=== PATIENT | male | born 1945 | race Caucasian/White ===

== ENCOUNTER 2016-05-21 10:15 | Inpatient (IN) ==
[2016-05-21] MEDS ORDERED: methylPREDNISolone 125 MG/2 ML VIAL IV ONE (10:31)
[2016-05-21] MEDS ORDERED: Ipratropium/Albuterol Neb 3 ML IH ONE (10:31)
[2016-05-21] MEDS ORDERED: Ipratropium/Albuterol Neb 3 ML ONE (10:33)
[2016-05-21] MEDS: 0.9 % Sodium Chloride 1,000 ML IVC SCH ×2 (10:44→20:34)
[2016-05-21 10:54] LABS: Basophils % 0.2 %; Eosinophils % 0.1 %; Hematocrit 29.8 % (37.5-50.1); Hemoglobin 9.4 g/dL (12.9-16.9); Immature Granulocytes % 0.3 % (0-4); Lymphocytes # 0.2 K/mcL (0.6-4.6); Lymphocytes % 1.8 %; Mean Corpuscular HGB Conc 31.5 g/dL (31.6-35.5); Mean Corpuscular Hemoglobin 26.3 pg (28.0-33.3); Mean Corpuscular Volume 83.2 fL (83.0-100.0); Mean Platelet Volume 9.2 fL (9.4-12.4); Monocytes # 0.6 K/mcL (0.0-1.3); Monocytes % 4.8 %; Neutrophils # 11.1 K/mcL (1.6-8.9); Platelet Count 165 K/mcL (140-400); Red Blood Count 3.58 M/mcL (4.19-5.50); Red Cell Distribution Width 14.2 % (11.5-14.5); Segmented Neutrophils % 92.8 %
[2016-05-21 10:57] LABS: INR 1.1; Prothrombin Time 11.8 Seconds (9.4-12.1)
[2016-05-21 11:00] LABS: Activated Partial Thrombo Time 28.2 Seconds (26.0-36.0)
[2016-05-21 11:04] LABS: Calcium 8.4 mg/dL (8.6-10.8); Potassium 5.4 mEq/L (3.5-4.5)
[2016-05-21 11:05] LABS: ABG Base Excess 2.5 mEq/L (-2.0 to 3.0); ABG HCO3 28.3 mEQ/L (21-27); ABG Oxygen Saturation 89 % (95-98); ABG PCO2 49 mmHg (35-45); ABG PH 7.37 pH Units (7.32-7.45); ABG PO2 59 mmHg (85-104); ABG TCO2 29.8 mEq/L (20-26); Blood Gas Liter Flow 4 L/MIN
[2016-05-21 11:08] LABS: Platelet Estimate Normal (Normal)
--- NOTE | 2016-05-21 11:23 | Emergency Department Note ---
Disposition Clinical Impression: Community acquired pneumonia Acute and chronic respiratory failure Qualifiers: Respiratory failure complication: hypoxia Qualified Code(s): J96.21 - Acute and chronic respiratory failure with hypoxia Disposition: Admitted As Inpatient Condition: Fair [facility]errals: [facility]Primary Care Provider[facility] - Forms: ED Satisfaction Letter SOB HPI - General Chief Complaint: ED Shortness of Breath/Dyspnea Stated Complaint: KELLY Time Seen by Provider: 05/21/16 10:26 Source: patient, family, EMS Limitations: no limitations Nursing Notes Reviewed: Yes Vital Signs Reviewed: Yes - History of Present Illness Pt Subjective Complaint: shortness of breath, cough Onset (ago): day(s) (2) Severity: moderate Consistency/Duration: intermittent Improves with: oxygen, rest, bronchodilators Worsens with: exertion Known history of: COPD Associated symptoms: Reports: cough, wheezing. Denies: chest pain, fever Treatment prior to arrival: oxygen, bronchodilator Cough present: Yes Cough Description: Involuntary Cough Frequency: Intermittent Sputum production: No - Related Data Home Medications Medication Instructions Recorded Confirmed Metformin [Glucophage] 1,000 mg PO BID 03/24/15 02/06/16 Morphine Sulfate/PF 5mg/10mL 0.5 mg .ROUTE Q1H PRN MDD Pump 03/24/15 01/29/16 [Duramorph] Promethazine [Phenergan] 25 mg PO QID PRN 03/24/15 02/06/16 Sertraline [Zoloft] 200 mg PO QAM 03/24/15 02/06/16 Ascorbic Acid [Vitamin C with Nieves 500 mg PO TID 12/11/15 02/06/16 Hips] Budesonide/Formoterol 160/4.5 2 puff IH BID 12/11/15 02/06/16 [Symbicort 160/4.5] Ipratropium/Albuterol Neb [Duoneb] 3 ml IH QID 12/11/15 02/06/16 Petrolatum,White [Aloe [place]] 1 appl TP TID PRN 01/07/16 02/06/16 Zinc Oxide [Diaper Rash Ointment] 1 appl TP TID 01/07/16 02/06/16 Zolpidem [Ambien] 5 mg PO HS 01/07/16 02/06/16 Carboxymethylcellulose Sodium 1 drop BOTH EYES QID 01/29/16 02/06/16 [Refresh Liquigel] Melatonin 12 mg PO HS 01/29/16 02/06/16 Mineral Oil/Petrolatum,White 1 appl LEFT EYE HS 01/29/16 02/06/16 [Refresh P.m. Ointment] Omeprazole [PriLOSEC] 20 mg PO BIDAC 01/29/16 02/06/16 Acetylcysteine 10% 4 ml IH Q6H PRN 02/06/16 02/06/16 Balsam [place] Oil [Venelex 1 appl TP DAILY 02/06/16 02/06/16 Ointment] Ergocalciferol (VITAMIN D2) 50,000 unit PO QWEEK 02/06/16 02/06/16 [Vitamin D2] Previous Rx's Medication Instructions Recorded OxyCODONE Immed Rel [Roxicodone 5 10 mg PO Q6HR PRN #10 tablet 02/08/16 MG] OxyCODONE/APAP 10/325 [Percocet 1 each PO Q6HR PRN #12 tablet 03/28/16 10/325 MG] Allergies Allergy/AdvReac Type Severity Reaction Status Date / Time gabapentin AdvReac Unknown Verified 04/03/16 05:53 mirtazapine AdvReac Unknown Verified 04/03/16 05:53 propoxyphene [From Darvon] AdvReac Nausea Verified 04/03/16 05:53 tuberculin, purified protein AdvReac Rash Verified 04/03/16 05:53 deriva [From Tubersol] All systems ED: reviewed and negative except as stated. Constitutional: Reports: weakness. Denies: fever Respiratory: Reports: dyspnea, wheezes Past Medical History - Past Medical History Source: patient, old records reviewed, nursing notes reviewed Medical history: Reports: arthritis, COPD, diabetes, GERD, hyperlipidemia, hypertension Surgical history: Reports: other Psychiatric history: Reports: PTSD - Social History Smoking Status: Former smoker Smokeless Tobacco Status: No Alcohol use: Reports: none Drug use: Reports: none Physical Exam - General Limitations: no limitations General appearance: alert - Head Head exam: atraumatic, normocephalic, normal inspection - Eye Eye exam: Present: normal appearance, PERRL, EOMI - ENT ENT exam: normal exam, normal oropharynx, mucous membranes moist - Neck Neck exam: Present: normal inspection, full ROM, trachea midline - Chest Chest inspection: Present: normal inspection, symmetric chest wall rise - Respiratory Respiratory exam: Present: wheezes (Bilateral scattered rhonchi). Absent: accessory muscle use Course Vital Signs Temperature 99.8 F H 05/21/16 10:17 Pulse Rate 117 05/21/16 10:17 Respiratory Rate 18 05/21/16 10:17 Blood Pressure 132/68 05/21/16 10:17 O2 Sat by Pulse Oximetry 92 05/21/16 10:17 Temperature 99.8 F H 05/21/16 10:17 Pulse Rate 107 05/21/16 11:17 Respiratory Rate 20 05/21/16 11:17 Blood Pressure 132/68 05/21/16 11:17 O2 Sat by Pulse Oximetry 93 05/21/16 11:17 Oxygen Delivery Oxygen Delivery Nasal Cannula Shortness of Breath/Dyspnea - Lab Data Result diagrams: 05/21/16 10:46 05/21/16 10:46 Lab Results 05/21/16 05/21/16 05/21/16 Range/Units 10:46 10:46 10:46 WBC 12.0 H (4.3-11.1) K/mcL RBC 3.58 L (4.19-5.50) M/mcL Hgb 9.4 L (12.9-16.9) g/dL Hct 29.8 L (37.5-50.1) % MCV 83.2 (83.0-100.0) fL MCH 26.3 L (28.0-33.3) pg MCHC 31.5 L (31.6-35.5) g/dL RDW 14.2 (11.5-14.5) % Plt Count 165 (140-400) K/mcL MPV 9.2 L (9.4-12.4) fL Immature Gran % 0.3 (0-4) % Seg Neutrophils % 92.8 % Lymphocytes % 1.8 % Monocytes % 4.8 % Eosinophils % 0.1 % Basophils % 0.2 % Neutrophils # 11.1 H (1.6-8.9) K/mcL Lymphocytes # 0.2 L (0.6-4.6) K/mcL Monocytes # 0.6 (0.0-1.3) K/mcL Eosinophils # 0.0 (0.0-0.6) K/mcL Basophils # 0.0 (0.0-0.2) K/mcL Platelet Estimate Normal (Normal) PT 11.8 (9.4-12.1) Seconds INR 1.1 APTT 28.2 (26.0-36.0) Seconds ABG pH (7.32-7.45) pH Units ABG pCO2 (35-45) mmHg ABG pO2 (85-104) mmHg ABG HCO3 (21-27) mEQ/L ABG Total CO2 (20-26) mEq/L ABG O2 Saturation (95-98) % ABG Base Excess (-2.0 to 3.0) mEq/L Liter Flow L/MIN Blood Gas Modality Sodium 138 (136-145) mEq/L Potassium 5.4 H (3.5-4.5) mEq/L Chloride 103 (98-109) mEq/L Carbon Dioxide 28 (19-29) mEq/L BUN 20 (8-26) mg/dL Creatinine 1.67 H (0.72-1.25) mg/dL Est GFR ( Amer) 49 L (> 60) Est GFR (Non-Af Amer) 41 L (> 60) BUN/Creatinine Ratio 12 (6-26) Glucose 200 H (70-99) mg/dL Calculated Osmolality 294 (280-300) Calcium 8.4 L (8.6-10.8) mg/dL Troponin I (0-0.03) ng/mL B-Natriuretic Peptide (0-100) pg/mL 05/21/16 05/21/16 05/21/16 Range/Units 10:46 10:46 10:55 WBC (4.3-11.1) K/mcL RBC (4.19-5.50) M/mcL Hgb (12.9-16.9) g/dL Hct (37.5-50.1) % MCV (83.0-100.0) fL MCH (28.0-33.3) pg MCHC (31.6-35.5) g/dL RDW (11.5-14.5) % Plt Count (140-400) K/mcL MPV (9.4-12.4) fL Immature Gran % (0-4) % Seg Neutrophils % % Lymphocytes % % Monocytes % % Eosinophils % % Basophils % % Neutrophils # (1.6-8.9) K/mcL Lymphocytes # (0.6-4.6) K/mcL Monocytes # (0.0-1.3) K/mcL Eosinophils # (0.0-0.6) K/mcL Basophils # (0.0-0.2) K/mcL Platelet Estimate (Normal) PT (9.4-12.1) Seconds INR APTT (26.0-36.0) Seconds ABG pH 7.37 (7.32-7.45) pH Units ABG pCO2 49 H (35-45) mmHg ABG pO2 59 L (85-104) mmHg ABG HCO3 28.3 H (21-27) mEQ/L ABG Total CO2 29.8 H (20-26) mEq/L ABG O2 Saturation 89 L (95-98) % ABG Base Excess 2.5 (-2.0 to 3.0) mEq/L Liter Flow 4 L/MIN Blood Gas Modality NC Sodium (136-145) mEq/L Potassium (3.5-4.5) mEq/L Chloride (98-109) mEq/L Carbon Dioxide (19-29) mEq/L BUN (8-26) mg/dL Creatinine (0.72-1.25) mg/dL Est GFR ( Amer) (> 60) Est GFR (Non-Af Amer) (> 60) BUN/Creatinine Ratio (6-26) Glucose (70-99) mg/dL Calculated Osmolality (280-300) Calcium (8.6-10.8) mg/dL Troponin I 0.03 (0-0.03) ng/mL B-Natriuretic Peptide 119 H (0-100) pg/mL
[2016-05-21] MEDS ORDERED: Levofloxacin 750 MG/150 ML 750 MG/150 ML BAG IVPB ONE (11:50)
[2016-05-21] MEDS ORDERED: Naloxone 0.4 MG/ML INJ IVP PRN (14:50)
[2016-05-21] MEDS ORDERED: Acetaminophen 325 MG TABLET PO PRN (14:50)
[2016-05-21] MEDS ORDERED: MORPHINE SULFATE MC PRN (15:00)
[2016-05-21] MEDS ORDERED: Acetylcysteine 10% 2 ML INHSOL IH PRN (15:00)
[2016-05-21] MEDS ORDERED: Dextrose Gel 15 GM PO PRN ×2 (15:04)
[2016-05-21] MEDS ORDERED: D5% in Water 1,000 ML IVC PRN (15:04)
[2016-05-21] MEDS ORDERED: *HR* Dextrose 50 % in Water (Syg) 50 ML SYRINGE IVP PRN (15:04)
--- NOTE | 2016-05-21 15:17 | Internal Med History&Physical ---
<Amie Nuñez - Last Filed: 05/21/16 15:54> Date of Encounter: 05/21/16 Time of Encounter: 14:30 Assessment and Plan (1) Community acquired pneumonia Current visit: Yes Status: Acute 1 patient has a history of weakness subjective fever shortness of breath and confusion wheezing hypoxia. Chest x-ray indicates multifocal pneumonia. WBCs 12. Blood cultures have been obtained we will obtain sputum culture 2 continue with oxygen to maintain SPO2 greater than 92% continue with bronchodilators 3 IV Levaquin (2) Acute and chronic respiratory failure Current visit: Yes Status: Acute 1 patient experiencing low SPO2 home presented to ER SPO2 90% ABG PO2 59 and O2 sat 89 PCO2 49 pH 7.3 he has a history of oxygen dependent COPD as well as sarcoidosis. We will continue with oxygen titrated to maintain SPO2 greater than 92%. 2 We will continue with bronchodilators Qualifiers: Respiratory failure complication: hypoxia Qualified Code(s): J96.21 - Acute and chronic respiratory failure with hypoxia (3) Hyperkalemia Current visit: Yes Status: Acute (4) Sepsis Current visit: Yes Status: Acute 1 patient was tachycardic tachypneic with elevated WBC at 12 altered mental status sources pneumonia. Blood cultures were obtained we will obtain sputum cultures 2 continue with IV fluids 3 continue with Levaquin 4 monitor intake and output Qualifiers: Sepsis type: sepsis due to unspecified organism Qualified Code(s): A41.9 - Sepsis, unspecified organism (5) Diabetes mellitus Current visit: No Status: Chronic 1 Accu-Cheks before meals and at bedtime with basal and sliding scale insulin 2 diabetic diet Qualifiers: Diabetes mellitus type: type 2 Diabetes mellitus complication status: with kidney complications Diabetes mellitus complication detail: with chronic kidney disease Diabetes mellitus lobsterman insulin use: unspecified lobsterman insulin use status Chronic kidney disease stage: stage 3 (moderate) Qualified Code(s): E11.22 - Type 2 diabetes mellitus with diabetic chronic kidney disease; N18.3 - Chronic kidney disease, stage 3 (moderate) (6) Hypertension Current visit: No Status: Chronic 1 presently controlled we will continue with beta angelika will hold lisinopril for now due to elevation in creatinine resume once back to baseline Qualifiers: Hypertension type: essential hypertension Qualified Code(s): I10 - Essential (primary) hypertension (7) CKD (chronic kidney disease) Current visit: No Status: Chronic 11 . Patient's creatinine baseline is around 1.3 1.4. Presently 1.67. Suspect patient is dry from current illness. Will continue to monitor creatinine 2 continue with IV fluids 3 monitor intake and output 4 daily weights 5 avoid nephrotoxins Qualifiers: Chronic kidney disease stage: stage 3 (moderate) Qualified Code(s): N18.3 - Chronic kidney disease, stage 3 (moderate) (8) COPD (chronic obstructive pulmonary disease) Current visit: No Status: Chronic 1 does not appear to be an exacerbation or wheezing noted at this time. We will continue with oxygen titrated to maintain SPO2 greater than 92% 2 bronchodilators Qualifiers: COPD type: unspecified COPD Qualified Code(s): J44.9 - Chronic obstructive pulmonary disease, unspecified (9) DVT prophylaxis Current visit: No Status: Acute 1 [facility] Internal Medicine - H&P: HPI Chief complaint: SOB Admitted From: Emergency Dept Plans for Post Hospital Care: Home History of present illness: Mr. Hare is a 70 year old male past medical history of COPD oxygen dependent diabetes type 2 hyperlipidemia hypertension arthritis PTSD CKD stage III sarcoidosis. According to patient's patient who is at bedside for the past 2 days patient has been experiencing some dyspepsia. Last night around 8 8 :30 patient became nauseated and was dry heaving acini progress patient experienced fevers shortness of breath weakness wheezing increased confusion. Denies any chest pain abdominal pain does admit to subjective fevers chills shortness of breath weakness wheezes and confusion The attempted to give patient nebulizer treatments as well as turning up his oxygen with no relief. This a.m. patient continued to be short of breath and confused EMS was called upon arrival patient was tachypneic with low spo2 DuoNeb's were given in route. Upon arrival to the ER patient's ABG PO2 59 O2 sat 89 PCO2 49. He was given 2 nebs as well as steroids chest x-ray did reveal left upper and lower lung zones concerning for pneumonia. Patient was tachycardic on presentation, he was afebrile blood pressure was stable low grade temp. blood cultures were obtained patient was given IV fluids and started on IV Levaquin. Patient has been admitted for further evaluation. Presently patient is alert and oriented 3 he does follow simple commands. He does not appear to be any respiratory distress at this time with his saturations are stable lung sounds with scattered crackles in the bases bilaterally. He is hemodynamically stable this time. I reviewed his case with who agrees with plan. Past Med Surg Social Fam HX - Past Medical History Medical history: arthritis, COPD, diabetes, GERD, hyperlipidemia, hypertension Psychiatric history: PTSD - Past Surgical History Surgical History: other - Social History Smoking Status: Former smoker Smokeless Tobacco Status: No Alcohol use: none Drug use: none - Family History Mother Living Status: Hx Family Cardiac Disorders: Yes Hx Family Neurologic Disorders: Yes (Alzhemier's) Father Living Status: Hx Family Cardiac Disorders: Yes (AR) Hx Family Respiratory Disorders: No Hx Family Cancer: No Hx Family GI Disorders: No Hx Family Endocrine Disorder: No Hx Family Neuromuscular Disorders: No Hx Family Neurologic Disorders: No Hx Family HEENT Disorders: No Hx Family Autoimmune Disorders: No Internal Medicine - H&P: Meds Metformin [Glucophage] 1,000 mg PO BID 03/24/15 [History] Morphine Sulfate/PF 5mg/10mL [Duramorph] 0.5 mg .ROUTE Q1H PRN MDD Pump [History] Promethazine [Phenergan] 25 mg PO QID PRN 03/24/15 [History] Sertraline [Zoloft] 200 mg PO QAM 03/24/15 [History] Ascorbic Acid [Vitamin C with Nieves Hips] 500 mg PO TID 12/11/15 [History] Ipratropium/Albuterol Neb [Duoneb] 3 ml IH QID 12/11/15 [History] Petrolatum,White [Aloe [place]] 1 appl TP TID PRN 01/07/16 [History] Zinc Oxide [Diaper Rash Ointment] 1 appl TP TID 01/07/16 [History] Zolpidem [Ambien] 5 mg PO HS 01/07/16 [History] Melatonin 12 mg PO HS 01/29/16 [History] Omeprazole [PriLOSEC] 20 mg PO BIDAC 01/29/16 [History] Acetylcysteine 10% 4 ml IH Q6H PRN 02/06/16 [History] Cholecalciferol (D-3) [Vitamin D] 2,000 unit PO DAILY 05/21/16 [History] Diazepam [Valium] 10 mg PO BID 05/21/16 [History] Ferrous Gluconate 648 mg PO BID 05/21/16 [History] Insulin Glargine,Hum.rec.anlog [Lantus Solostar] 17 unit SQ HS 05/21/16 [History ] Lisinopril [Zestril] 5 mg PO DAILY 05/21/16 [History] Morphine Sulfate 15 mg PO BID PRN 05/21/16 [History] Oxycodone HCl/Acetaminophen [Percocet 7.5-325 mg Tablet] 1 tab PO QID PRN [History] Allergies gabapentin Adverse Reaction (Verified 04/03/16 05:53) Unknown [facility] list mirtazapine Adverse Reaction (Verified 04/03/16 05:53) Unknown [facility] list propoxyphene [From Darvon] Adverse Reaction (Verified 04/03/16 05:53) Nausea tuberculin, purified protein deriva [From Tubersol] Adverse Reaction (Verified 04/03/16 05:53) Rash All Systems PM: A 10-system review of systems was performed and is negative for pertinent findings except as documented above in the HPI. - Constitutional Constitutional: fatigue, fever(s), weakness - Cardiovascular Cardiovascular ROS IM: orthopnea, no chest pain, no diaphoresis, no dyspnea, no lightheadedness, no palpitations, no syncope - Respiratory Respiratory: cough, dyspnea - Gastrointestinal Gastrointestinal: no abdominal pain, no diarrhea, no hematemesis, no hematochezia, no melena, no nausea, no vomiting - Musculoskeletal Musculoskeletal ROS IM: no numbness, no tingling - Integumentary Integumentary IM: no rash, no unusual bruising - Neurological Neurological ROS: confusion - Constitutional Vitals: Temp Pulse Resp BP Pulse Ox 99.8 F H 96 18 107/72 93 05/21/16 10:17 05/21/16 13:00 05/21/16 14:34 05/21/16 14:34 05/21/16 13:00 General appearance: Present: A&O X 3, answers questions appropriately - Head Head exam: Present: atraumatic, normocephalic - Eye Eye exam: Present: PERRL, conjuntiva pink, sclera anicteric Pupils: Present: PERRL - Respiratory Additional comments: Crackles in bases bilaterally - Cardiovascular Cardiovascular exam: Present: RRR, +S1, +S2. Absent: diastolic murmur, gallop, rubs, systolic murmur - GI/Abdominal GI/Abdominal exam: Present: normal bowel sounds, soft, no peritoneal signs. Absent: distended, tenderness - Extremities Exam Extremities exam: Present: warm, radial pulses palpable and symetrical. Absent : calf tenderness, cyanotic, pedal edema - Neurological Exam Neurological exam: Present: CN II-XII intact, oriented X3, no focal deficits. Absent: pronater drift, facial droop, speech deficit - Skin Skin exam: Present: dry, intact Internal Med - H&P Results - Labs CBC & Chem 7: 05/21/16 10:46 05/21/16 10:46 - EKG Data EKG shows normal: sinus rhythm - Diagnostic Studies Chest x-ray Additional comments: Chest X-Ray 05/21/16 10:32 IMPRESSION: Patchy airspace opacities to the left upper and lower lung zones concerning for multifocal pneumonia superimposed on chronic fibrotic change as well as chronic pleural thickening. D/ / 05/21/2016 12:03:01 Syd Arenas MD / bcarter Interpreting Provider: Syd Arenas MD <Nayan Rosado T - Last Filed: 05/21/16 17:45> Date of Encounter: 05/21/16 Internal Medicine - H&P: HPI History of present illness: Mr. Hare is a 70 year old male All Systems PM: A 10-system review of systems was performed and is negative for pertinent findings except as documented above in the HPI. - Constitutional Vitals: Temp Pulse Resp BP Pulse Ox 99.3 F 69 18 110/63 94 05/21/16 16:10 05/21/16 16:10 05/21/16 16:19 05/21/16 16:10 05/21/16 16:19 Internal Med - H&P Results - Labs CBC & Chem 7: 05/21/16 10:46 05/21/16 10:46 - Attending Attestation I have independently interviewed and examined this patient. I have discussed this patient with DON Nuñez, and her documentation reflects the plan of care with the following addendum 70 Y/O M, seen at bedside with spouse, sleeping but rousable. He has a PMH of COPD, Sarcoidosis on hoe O2, DM, GERD, HTN HLD, PTSD, he presented with complains of shortness of breath and cough, nausea. Physical exam reveals tachycardia on admission, improved, tachypnea, saturating 94-95% on NC, an elderly male, not in distress, speaks full sentences when awake, chest with diffuse rhonchi, worse on the left side, no crackles, heart sounds S1, S2 only. Abdomen is benign, morphine pump in-situ, no pedal edema. Labs and imaging reviewed: Leukocytosis with left shift, chronic anemia, stable , coag panel WNL, ABG with PO2 50, O2sat 89, prob mixed venous considering patients O2Sat , Chem with mild hyperkalemia, azotemia with mild elevation in creatinine. CXR with L multifocal pneumonia A/P: Acute on chronic hypoxic respiratory failure secondary to Sepsis from L lung pneumonia, organism unknown, continue Levoflox for CAP coverage, follow cultures, send sputum cultures, continue O2 supplementation, anemia work up, gentle hydration, resume home meds except Lisinopril, rest of details as in DON Nuñez documentation.
[2016-05-21] MEDS ORDERED: Albuterol 2.5 MG/3 ML NEBULIZER IH PRN (15:56)
[2016-05-21] MEDS: Ipratropium/Albuterol Neb 3 ML IH SCH ×2 (16:14→22:20)
[2016-05-21] MEDS: Ascorbic Acid 500 MG TABLET PO SCH ×2 (17:18→20:34)
[2016-05-21] MEDS: Insulin LISPRO 300 UNITS/3 ML VIAL SQ SCH (17:19)
[2016-05-21] MEDS: diazePAM 5 MG TABLET PO SCH (20:34)
[2016-05-21] MEDS: Insulin DETEMIR 100 UNIT/ML X5UNITS SQ SCH (20:34)
[2016-05-21] MEDS ORDERED: FERROUS GLUCONATE ID SCH (21:00)
[2016-05-21] MEDS ORDERED: Insulin LISPRO 300 UNITS/3 ML VIAL SQ SCH (21:00)
[2016-05-21] MEDS ORDERED: *HR* OxyCODONE Immed Rel 5 MG TABLET PO ONE (21:38)
[2016-05-22 04:43] LABS: Eosinophils % 0.1 %; Immature Granulocytes % 0.4 % (0-4); Lymphocytes # 0.6 K/mcL (0.6-4.6); Lymphocytes % 7.8 %; Mean Corpuscular HGB Conc 30.8 g/dL (31.6-35.5); Mean Corpuscular Hemoglobin 26.2 pg (28.0-33.3); Mean Platelet Volume 10.1 fL (9.4-12.4); Monocytes # 0.4 K/mcL (0.0-1.3); Monocytes % 5.3 %; Neutrophils # 6.3 K/mcL (1.6-8.9); Platelet Count 108 K/mcL (140-400); Red Blood Count 2.94 M/mcL (4.19-5.50); Red Cell Distribution Width 14.6 % (11.5-14.5); Segmented Neutrophils % 86.4 %
[2016-05-22 04:47] LABS: Calcium 8.4 mg/dL (8.6-10.8); Potassium 5.6 mEq/L (3.5-4.5)
[2016-05-22] MEDS: Ipratropium/Albuterol Neb 3 ML IH SCH ×4 (04:47→22:41)
[2016-05-22 04:54] LABS: Hemoglobin 7.7 g/dL (12.9-16.9)
[2016-05-22] MEDS: *HR* Enoxaparin 40 MG/0.4 ML SYRINGE SQ SCH (05:30)
[2016-05-22] MEDS: 0.9 % Sodium Chloride 1,000 ML IVC SCH ×3 (05:31→21:00)
[2016-05-22] MEDS: Cholecalciferol (D-3) 1,000 UNIT TABLET PO SCH (08:52)
[2016-05-22] MEDS: Ascorbic Acid 500 MG TABLET PO SCH ×2 (08:52→16:56)
[2016-05-22] MEDS: Insulin LISPRO 300 UNITS/3 ML VIAL SQ SCH (08:52)
[2016-05-22] MEDS: diazePAM 5 MG TABLET PO SCH (08:53)
[2016-05-22] MEDS ORDERED: Levofloxacin 750 MG/150 ML 750 MG/150 ML BAG IVPB SCH (09:00)
--- NOTE | 2016-05-22 09:13 | Internal Med Progress Note ---
Date of Encounter: 05/22/16 Time of Encounter: 09:10 - Assessment and plan (1) Pneumonia Status: Acute Assessment and plan: Imaging studies show bilateral multifocal infiltrates suggestive of pneumonia. Continue IV hydration and IV Levaquin. Follow-up blood and sputum cultures. Improving clinically and improved leukocytosis. Supportive care and supplemental oxygen as needed, currently requiring at least 4 L/m via nasal cannula. Qualifiers: Pneumonia type: due to unspecified organism Laterality: bilateral Lung location: unspecified part of lung Qualified Code(s): J18.9 - Pneumonia, unspecified organism (2) CKD (chronic kidney disease) Status: Chronic Assessment and plan: Noted to have mild acute kidney injury due to underlying infection. Serum creatinine noted to be improving, continue IV hydration and monitor closely. Medications to be dosed according to current creatinine clearance. Qualifiers: Chronic kidney disease stage: stage 3 (moderate) Qualified Code(s): N18.3 - Chronic kidney disease, stage 3 (moderate) (3) Hyperkalemia Status: Acute Assessment and plan: We will start renal diet and give her dose of oral Kayexalate and continue to monitor serum potassium. Continue telemetry monitoring. (4) COPD (chronic obstructive pulmonary disease) Status: Chronic Assessment and plan: Not noted to be in acute exacerbation. Continue when necessary bronchodilators and supplemental oxygen. Qualifiers: COPD type: unspecified COPD Qualified Code(s): J44.9 - Chronic obstructive pulmonary disease, unspecified (5) Sarcoidosis Status: Chronic (6) Diabetes mellitus type 2, insulin dependent Status: Chronic Assessment and plan: Continue Accu-Chek blood glucose monitoring with sliding scale insulin. Diabetic diet. (7) Acute on chronic respiratory failure Status: Acute Assessment and plan: Secondary to pneumonia. Continue to wean down FiO2 as tolerated. Qualifiers: Respiratory failure complication: hypoxia Qualified Code(s): J96.21 - Acute and chronic respiratory failure with hypoxia (8) Hypertension Status: Chronic Qualifiers: Hypertension type: essential hypertension Qualified Code(s): I10 - Essential (primary) hypertension - Subjective Interval history: Feels much better; at baseline mentation; improved shortness of breath; has intermittent productive cough; no fever, vomiting or diarrhea; - Constitutional Vitals: Temp Pulse Resp BP Pulse Ox 98.4 F 63 16 102/48 98 05/22/16 08:07 05/22/16 08:07 05/22/16 08:07 05/22/16 08:07 05/22/16 08:07 General appearance: Present: A&O X 3, answers questions appropriately - Respiratory Respiratory exam: Present: rales (Bibasilar crackles, left midaxillary crackles+ ). Absent: accessory muscle use, rhonchi, wheezes - Cardiovascular Cardiovascular exam: Present: RRR, +S1, +S2. Absent: diastolic murmur, gallop, rubs, systolic murmur - GI/Abdominal GI/Abdominal exam: Present: normal bowel sounds, soft, no peritoneal signs. Absent: distended, tenderness - Extremities Exam Extremities exam: Present: pedal edema (trace), warm, radial pulses palpable and symetrical. Absent: calf tenderness, cyanotic - Neurological Exam Neurological exam: Present: CN II-XII intact, oriented X3, no focal deficits. Absent: pronater drift, facial droop, speech deficit Internal Medicine: Result - Labs CBC & Chem 7: 05/23/16 03:48 05/23/16 03:48 Labs: Short CBC 05/22/16 Range/Units 03:53 WBC 7.3 (4.3-11.1) K/mcL Hgb 7.7 L D (12.9-16.9) g/dL Hct 25.0 L (37.5-50.1) % Plt Count 108 L (140-400) K/mcL Neutrophils # 6.3 (1.6-8.9) K/mcL BMP 05/22/16 03:53 Sodium 137 Potassium 5.6 H Chloride 104 Carbon Dioxide 27 BUN 26 Creatinine 1.44 H Glucose 148 H Calcium 8.4 L - ABG Interpretation ABG results: ABG ABG pH 7.37 pH Units (7.32-7.45) 05/21/16 10:55 ABG pCO2 49 mmHg (35-45) H 05/21/16 10:55 ABG pO2 59 mmHg (85-104) L 05/21/16 10:55 ABG O2 Saturation 89 % (95-98) L 05/21/16 10:55 PT/INR, D-dimer PT 11.8 Seconds (9.4-12.1) 05/21/16 10:46 Consult Discharge Plan - Plan Instructions: Chronic Obstructive Pulmonary Disease (DC), Pneumonia (DC) [facility]errals: [facility]Primary Care Provider[facility] - 05/28/16 11:15 am Prescriptions: Levofloxacin [Levaquin] 750 mg PO DAILY 5 Days
[2016-05-22] MEDS ORDERED: Acetylcysteine 10% 2 ML INHSOL IH PRN (13:42)
[2016-05-22] MEDS: Levofloxacin 750 MG/150 ML 750 MG/150 ML BAG IVPB SCH (14:14)
--- NOTE | 2016-05-22 15:41 | Electrocardiograph Report ---
[facility] [employer] Test Date: 2016-05-21 Pat Name: Keith Hare Department: 103 Room: 2A35 Gender: M Spool Carrier: CHAPINCITO : 1945 Requested By: Audi Navarrete Order Number: [id number] Reading MD: Raymon Puentes MD Measurements Intervals [place] Rate: 97 P: 14 CA: 138 QRS: -12 QRSD: 94 T: -7 QT: 331 QTc: 385 Interpretive Statements SINUS RHYTHM MODERATE VOLTAGE CRITERIA FOR LVH, CONSIDER NORMAL VARIANT NONSPECIFIC T-WAVE ABNORMALITY Electronically Signed On 05-22-2016 15:40:30 EDT by Raymon Puentes MD
[2016-05-22] MEDS ORDERED: Saline Nasal Spray 44 ML BOTTLE NS PRN (20:06)
[2016-05-22] MEDS ORDERED: Melatonin 3 MG TABLET PO SCH (21:00)
[2016-05-23] MEDS: Ascorbic Acid 500 MG TABLET PO SCH ×4 (01:45→15:57)
[2016-05-23] MEDS: Insulin DETEMIR 100 UNIT/ML X5UNITS SQ SCH (01:46)
[2016-05-23] MEDS: diazePAM 5 MG TABLET PO SCH ×2 (01:46→07:37)
[2016-05-23 04:38] LABS: Basophils % 0.2 %; Eosinophils # 0.1 K/mcL (0.0-0.6); Eosinophils % 1.1 %; Hematocrit 24.3 % (37.5-50.1); Hemoglobin 7.5 g/dL (12.9-16.9); Immature Granulocytes % 0.7 % (0-4); Lymphocytes # 0.7 K/mcL (0.6-4.6); Lymphocytes % 12.9 %; Mean Corpuscular HGB Conc 30.9 g/dL (31.6-35.5); Mean Corpuscular Hemoglobin 26.2 pg (28.0-33.3); Mean Platelet Volume 10.7 fL (9.4-12.4); Monocytes # 0.3 K/mcL (0.0-1.3); Monocytes % 6.3 %; Neutrophils # 4.2 K/mcL (1.6-8.9); Platelet Count 113 K/mcL (140-400); Red Blood Count 2.86 M/mcL (4.19-5.50); Red Cell Distribution Width 14.9 % (11.5-14.5); Segmented Neutrophils % 78.8 %
[2016-05-23 04:52] LABS: BUN/Creatinine Ratio 19 (6-26); Blood Urea Nitrogen 24 mg/dL (8-26); Calcium 8.7 mg/dL (8.6-10.8); Carbon Dioxide 25 mEq/L (19-29); Chloride 104 mEq/L (98-109); Glucose 132 mg/dL (70-99); Osmolality,Calculated 292 (280-300); Potassium 4.8 mEq/L (3.5-4.5); Sodium 138 mEq/L (136-145); eGFR For African Americans > 60 (> 60); eGFR For Non-African Americans 56 (> 60)
[2016-05-23] MEDS: Ipratropium/Albuterol Neb 3 ML IH SCH ×3 (05:08→16:16)
[2016-05-23] MEDS: Cholecalciferol (D-3) 1,000 UNIT TABLET PO SCH (07:37)
[2016-05-23] MEDS: *HR* Enoxaparin 40 MG/0.4 ML SYRINGE SQ SCH (07:37)
[2016-05-23] MEDS ORDERED: Saline Nasal Spray 44 ML BOTTLE NS PRN (09:56)
[2016-05-23] MEDS ORDERED: Acetylcysteine 10% 2 ML INHSOL IH PRN (09:56)
[2016-05-23] MEDS: Levofloxacin 750 MG/150 ML 750 MG/150 ML BAG IVPB SCH (12:25)
[2016-05-23] MEDS ORDERED: Levofloxacin 750 MG/150 ML 750 MG/150 ML BAG IVPB SCH (13:00)
--- NOTE | 2016-05-23 15:37 | Discharge Summary ---
Date of Encounter: 05/23/16 Time of Encounter: 12:30 - Discharge Diagnosis (1) Pneumonia Priority: Primary Status: Acute Qualifiers: Pneumonia type: due to unspecified organism Laterality: bilateral Lung location: unspecified part of lung Qualified Code(s): J18.9 - Pneumonia, unspecified organism (2) CKD (chronic kidney disease) Priority: Secondary Status: Chronic Qualifiers: Chronic kidney disease stage: stage 3 (moderate) Qualified Code(s): N18.3 - Chronic kidney disease, stage 3 (moderate) (3) Hyperkalemia Priority: Primary Status: Acute (4) COPD (chronic obstructive pulmonary disease) Priority: Secondary Status: Chronic Qualifiers: COPD type: unspecified COPD Qualified Code(s): J44.9 - Chronic obstructive pulmonary disease, unspecified (5) Sarcoidosis Priority: Secondary Status: Chronic (6) Diabetes mellitus type 2, insulin dependent Priority: Secondary Status: Chronic (7) Acute on chronic respiratory failure Priority: Primary Status: Acute Qualifiers: Respiratory failure complication: hypoxia Qualified Code(s): J96.21 - Acute and chronic respiratory failure with hypoxia (8) Hypertension Priority: Secondary Status: Chronic Qualifiers: Hypertension type: essential hypertension Qualified Code(s): I10 - Essential (primary) hypertension - Discharge Medications Prescriptions: Levofloxacin [Levaquin] 750 mg PO DAILY 5 Days Home Medications: Metformin [Glucophage] 1,000 mg PO BID 03/24/15 [History] Morphine Sulfate/PF 5mg/10mL [Duramorph] 0.5 mg .ROUTE Q1H PRN MDD Pump [History] Promethazine [Phenergan] 25 mg PO QID PRN 03/24/15 [History] Sertraline [Zoloft] 200 mg PO QAM 03/24/15 [History] Ascorbic Acid [Vitamin C with Nieves Hips] 500 mg PO TID 12/11/15 [History] Ipratropium/Albuterol Neb [Duoneb] 3 ml IH QID 12/11/15 [History] Petrolatum,White [Aloe [place]] 1 appl TP TID PRN 01/07/16 [History] Zinc Oxide [Diaper Rash Ointment] 1 appl TP TID 01/07/16 [History] Zolpidem [Ambien] 5 mg PO HS 01/07/16 [History] Melatonin 12 mg PO HS 01/29/16 [History] Omeprazole [PriLOSEC] 20 mg PO BIDAC 01/29/16 [History] Acetylcysteine 10% 4 ml IH Q6H PRN 02/06/16 [History] Cholecalciferol (D-3) [Vitamin D] 2,000 unit PO DAILY 05/21/16 [History] Diazepam [Valium] 10 mg PO BID 05/21/16 [History] Ferrous Gluconate 648 mg PO BID 05/21/16 [History] Insulin Glargine,Hum.rec.anlog [Lantus Solostar] 17 unit SQ HS 05/21/16 [History ] Lisinopril [Zestril] 5 mg PO DAILY 05/21/16 [History] Oxycodone HCl/Acetaminophen [Percocet 7.5-325 mg Tablet] 1 tab PO QID PRN [History] Levofloxacin [Levaquin] 750 mg PO DAILY 5 Days 05/23/16 [Rx] Allergies/Adverse Reactions: Allergies gabapentin Adverse Reaction (Verified 04/03/16 05:53) [facility] mirtazapine Adverse Reaction (Verified 04/03/16 05:53) Unknown [facility] list propoxyphene [From Darvon] Adverse Reaction (Verified 04/03/16 05:53) Nausea tuberculin, purified protein deriva [From Tubersol] Adverse Reaction (Verified 04/03/16 05:53) Rash Date of admission: 05/21/16 14:50 [facility] care physician: [facility] Discharging clinician: Rubi Santos Anticipated date of discharge: 05/23/16 - Patient Status Disposition: Home, Self-Care Condition: Fair Functional capacity at discharge: uses cane/walker Overall status at discharge: patient is progressing back to baseline - Discharge Instructions Instructions: Chronic Obstructive Pulmonary Disease (DC), Pneumonia (DC) Follow Up With: [facility] [Primary Care Provider] - 05/28/16 11:15 am - Diet and Activity Activity: resume usual activities as tolerated, wear oxygen at all times Diet: diabetic diet, low fat, low cholesterol, low salt diet Hospital course: Mr. Hare is a 70 year old male admitted with cough and dyspnea, noted to be in acute on chronic respiratory failure. Chest XRay showed e/o- multifocal Pneumonia and she was started on IV antibiotics and IV hydration. Blood cultures remained negative and patient made significant improvement clinically, and O2 requirements were down to baseline. Sputum GS showed GPC, final report pending at the time of discharge. Patient also had chronic anemia, around 7-8 and he has been advised to f/up with gI recently, for possible EGD/Colonoscopy and he is otherwise stable for discharge. He is noted to be on oral iron supplements and Vit C, and Hb is in the usual range for him. - Time Spent with Patient Total time spent providing and/or coordinating discharge services: Greater than 30 minutes (45 min) - Constitutional Vitals: Temp Pulse Resp BP Pulse Ox 98.7 F 68 18 138/73 99 05/23/16 11:31 05/23/16 11:31 05/23/16 11:31 05/23/16 11:31 05/23/16 11:31 General appearance: Present: A&O X 3, answers questions appropriately - Respiratory Respiratory exam: Present: CTAB (coarse breath sounds B/L). Absent: accessory muscle use, rales, rhonchi, wheezes - Cardiovascular Cardiovascular exam: Present: RRR, +S1, +S2. Absent: diastolic murmur, gallop, rubs, systolic murmur
[2016-05-23 15:39] VITALS: BP 128/58
== END 2016-05-23 16:40 | disposition home or self-care (01) | DRG 871 ==
LOC: EMEROO 10:15 → 2ANU 13:10 → INTOOBSV 13:10 → SUATTDRO 14:50 → 2ANU 15:22
PROVIDERS: ADMIT Internal Medicine; ATTEND Internal Medicine

== ENCOUNTER 2017-06-09 22:43 | Observation (INO) ==
[2017-06-09] MEDS ORDERED: Aspirin 81 MG TAB.CHEW PO ONE (22:53)
[2017-06-09] MEDS ORDERED: 0.9 % Sodium Chloride 500 ML IVC ONE (22:53)
--- NOTE | 2017-06-09 22:57 | Emergency Department Note ---
Disposition Clinical Impression: Hyperglycemia Chest pain Qualifiers: Chest pain type: unspecified Qualified Code(s): R07.9 - Chest pain, unspecified Anemia Qualifiers: Anemia type: unspecified type Qualified Code(s): D64.9 - Anemia, unspecified Disposition: Admitted As Inpatient Condition: Fair Time of Disposition: 00:27 Chest Pain HPI - General Chief Complaint: ED Chest Pain Stated Complaint: chest pain Time Seen by Provider: 06/09/17 22:52 Source: patient, EMS Mode of arrival: EMS Limitations: no limitations Vital Signs Reviewed: Yes Nursing Notes Reviewed: Yes - History of Present Illness HPI Narrative: 71-year-old male with history of CHF, COPD, PTSD presents for evaluation of chest pain. Presents via EMS. EMS report the patient's chest pain started proximal 1 hour prior to arrival. Patient states that it was nonexertional. Patient was using a breathing treatment. Patient noted left-sided chest pain which radiated across his chest into his neck and arms. Patient states that the pain is slightly improved since initial presentation. Patient denies a nausea vomiting or diaphoresis. Patient denies any dyspnea. Patient's on home oxygen therapy. Patient does have a nonproductive cough. No fevers. Patient denies history of heart attacks or stents. EMS report that the patient does have fairly significant PTSD. EMS also reported this is the patient's baseline mental status. - Related Data Home Medications Medication Instructions Recorded Confirmed Acetylcysteine 10% 4 ml MC Q6HR PRN 06/10/17 06/10/17 Ascorbic Acid [Vitamin C with Nieves 500 mg PO TID 06/10/17 06/10/17 Hips] Atorvastatin Calcium [Lipitor] 80 mg PO HS 06/10/17 06/10/17 Balsam [place] Oil [Venelex 5 gm TP DAILY 06/10/17 06/10/17 Ointment Packet] Budesonide/Formoterol 160/4.5 2 puff IH BIDR 06/10/17 06/10/17 [Symbicort 160/4.5] Cholecalciferol (D-3) [Vitamin D] 3,000 unit PO DAILY 06/10/17 06/10/17 Dextrose [Trueplus Glucose] 15 gm PO DAILY MDD hypoglycemia 06/10/17 06/10/17 Ibuprofen [Motrin] 200 mg PO Q4HR PRN 06/10/17 06/10/17 Insulin ASPART [Novolog Flexpen] 10 unit SQ TID 06/10/17 06/10/17 Insulin Glargine,Hum.rec.anlog 17 unit SQ DAILY 06/10/17 06/10/17 [Basaglar Kwikpen U-100] Ipratropium/Albuterol Neb [Duoneb] 3 ml IH Q6HR MDD Shortness of 06/10/17 breath Levothyroxine Sodium [Levo-T] 50 mcg PO DAILY 06/10/17 06/10/17 Lisinopril [Zestril] 2.5 mg PO DAILY 06/10/17 06/10/17 Melatonin [Melatonin] 12 mg PO HS 06/10/17 06/10/17 Metformin HCl [Glucophage] 1,000 mg PO BID 06/10/17 06/10/17 Miconazole 2% ointment [Aloe [place] 1 appl TP TID 06/10/17 06/10/17 Antifungal Ointment] Morphine Sulfate [Arymo ER] 15 mg PO BID 06/10/17 06/10/17 Omeprazole [PriLOSEC] 20 mg PO DAILY 06/10/17 06/10/17 Prazosin HCl [Minipress] 1 mg PO HS 06/10/17 06/10/17 Sertraline [Zoloft] 200 mg PO DAILY 06/10/17 06/10/17 Silver Sulfadiazine Cream 1 appl TP TID 06/10/17 06/10/17 [Silvadene] Tiotropium [Spiriva] 18 mcg IH 0700 06/10/17 06/10/17 Zinc Oxide [Secura Protective] 50 gm TP TID 06/10/17 06/10/17 diazePAM [Valium] 10 mg PO QID PRN 06/10/17 06/10/17 Allergies Allergy/AdvReac Type Severity Reaction Status Date / Time gabapentin AdvReac Unknown Verified 03/30/17 13:05 mirtazapine AdvReac Unknown Verified 03/30/17 13:05 propoxyphene [From Darvon] AdvReac Nausea Verified 03/30/17 13:05 tuberculin, purified protein AdvReac Rash Verified 03/30/17 13:05 deriva [From Tubersol] All systems ED: reviewed and negative except as stated. Constitutional: Denies: fever Cardiovascular: Reports: chest pain Respiratory: Reports: cough. Denies: dyspnea, sputum production Gastrointestinal: Denies: abdominal pain, nausea, vomiting Chest Pain PMH - Past Medical History Medical history: Reports: arthritis, COPD, diabetes, GERD, hyperlipidemia, hypertension Surgical history: Reports: other Psychiatric history: Reports: PTSD - Social History Smoking Status: Former smoker Alcohol use: Reports: none Drug use: Reports: none Physical Exam - General Limitations: no limitations General appearance: alert, in no apparent distress - Head Head exam: atraumatic, normocephalic, normal inspection - Eye Eye exam: Present: normal appearance, PERRL, EOMI - ENT ENT exam: normal exam - Neck Neck exam: Present: normal inspection - Chest Chest inspection: Present: normal inspection, symmetric chest wall rise. Absent : tenderness - Respiratory Respiratory exam: Present: prolonged expiratory phase. Absent: respiratory distress - Cardiovascular Cardiovascular exam: Present: regular rate, normal rhythm. Absent: systolic murmur - Abdominal Exam Abdominal exam: Present: soft, Non-Tender - Extremities Exam Extremities exam: Present: normal inspection. Absent: pedal edema - Back Exam Back exam: Present: normal inspection - Neurological Exam Neurological exam: Present: alert - Skin Skin exam: Present: warm, dry, intact, normal color Course Course Narrative: Patient seen and examined. Patient will get evaluation with basic labs including a troponin, chest x-ray, aspirin and nitroglycerin. Disposition likely be admission. Patient had an echo 2 years ago showed an EF of 65-70%. No recent provocative stress testing noted. - Reevaluation(s) Reevaluation #1: Patient is denying any chest pain. Patient states that he does have chronic back pain which appears to be his main concern at this point. Patient does have some EKG changes that of change from prior. Patient will be admitted to the hospitalist for further evaluation and monitoring with serial troponins and likely stress test. Family at bedside agree with current plan of care. Time: 23:54 Vital Signs Temperature 99.0 F 06/09/17 22:47 Pulse Rate 72 06/09/17 22:47 Respiratory Rate 19 06/09/17 22:47 Blood Pressure 160/71 06/09/17 22:47 O2 Sat by Pulse Oximetry 100 06/09/17 22:47 Temperature 98.5 F 06/10/17 01:08 Pulse Rate 60 06/10/17 01:08 Respiratory Rate 17 06/10/17 01:08 Blood Pressure 153/64 06/10/17 01:08 O2 Sat by Pulse Oximetry 96 06/10/17 01:08 Oxygen Delivery Oxygen Delivery Nasal Cannula Chest Pain - MDM Narrative Medical decision making narrative: Patient presents with complaint of chest pain. She has a history of CHF as well as COPD. Patient chest pain has significantly resolved during the ED course. Patient also has subsequent chronic back pain. Patient takes opiates for his back. Patient does have T-wave inversions across the anterior leads which are new from prior EKGs. Patient's acute onset of pain does not allow sufficient time for a negative single troponin. Patient is also a somewhat poor historian I would likely benefit from observation with serial troponins and further cardiac provocative testing. Patient chest x-ray does not show any widened mediastinum. Patient's low likelihood having a dissection with his back pain. Patient does have chronic back pain. Patient will be admitted to the hospitalist service with family at bedside agree with current plan of care. Patient's symptoms are not consistent with a pulmonary embolism. Patient's been resting comfortably in the emergency department. - Lab Data Lab results reviewed: Yes I reviewed the patient's lab results. Result diagrams: 06/09/17 23:09 06/09/17 23:09 Lab Results 06/09/17 06/09/17 06/09/17 Range/Units 23:09 23:09 23:09 WBC 5.8 (4.3-11.1) K/mcL RBC 3.71 L (4.19-5.50) M/mcL Hgb 10.0 L (12.9-16.9) g/dL Hct 31.6 L (37.5-50.1) % MCV 85.2 (83.0-100.0) fL MCH 27.0 L (28.0-33.3) pg MCHC 31.6 (31.6-35.5) g/dL RDW 13.8 (11.5-14.5) % Plt Count 146 (140-400) K/mcL MPV 9.9 (9.4-12.4) fL Immature Gran % 0.5 (0-4) % Seg Neutrophils % 75.8 % Lymphocytes % 15.6 % Monocytes % 4.9 % Eosinophils % 3.0 % Basophils % 0.2 % Neutrophils # 4.4 (1.6-8.9) K/mcL Lymphocytes # 0.9 (0.6-4.6) K/mcL Monocytes # 0.3 (0.0-1.3) K/mcL Eosinophils # 0.2 (0.0-0.6) K/mcL Basophils # 0.0 (0.0-0.2) K/mcL PT 12.2 H (9.4-12.1) Seconds INR 1.1 Sodium (136-145) mEq/L Potassium (3.5-5.1) mEq/L Chloride (98-107) mEq/L Carbon Dioxide (23-29) mEq/L BUN (8-23) mg/dL Creatinine (0.70-1.30) mg/dL Est GFR ( Amer) (> 60) Est GFR (Non-Af Amer) (> 60) BUN/Creatinine Ratio (6-26) Glucose (70-105) mg/dL Calculated Osmolality (280-300) Calcium (8.6-10.3) mg/dL Troponin I (< 0.04) ng/mL B-Natriuretic Peptide 89 (Less than 100) pg/mL 06/09/17 Range/Units 23:09 WBC (4.3-11.1) K/mcL RBC (4.19-5.50) M/mcL Hgb (12.9-16.9) g/dL Hct (37.5-50.1) % MCV (83.0-100.0) fL MCH (28.0-33.3) pg MCHC (31.6-35.5) g/dL RDW (11.5-14.5) % Plt Count (140-400) K/mcL MPV (9.4-12.4) fL Immature Gran % (0-4) % Seg Neutrophils % % Lymphocytes % % Monocytes % % Eosinophils % % Basophils % % Neutrophils # (1.6-8.9) K/mcL Lymphocytes # (0.6-4.6) K/mcL Monocytes # (0.0-1.3) K/mcL Eosinophils # (0.0-0.6) K/mcL Basophils # (0.0-0.2) K/mcL PT (9.4-12.1) Seconds INR Sodium 136 (136-145) mEq/L Potassium 4.3 (3.5-5.1) mEq/L Chloride 99 (98-107) mEq/L Carbon Dioxide 32 H (23-29) mEq/L BUN 13 (8-23) mg/dL Creatinine 1.09 (0.70-1.30) mg/dL Est GFR ( Amer) > 60 (> 60) Est GFR (Non-Af Amer) > 60 (> 60) BUN/Creatinine Ratio 12 (6-26) Glucose 218 H (70-105) mg/dL Calculated Osmolality 289 (280-300) Calcium 9.0 (8.6-10.3) mg/dL Troponin I < 0.03 (< 0.04) ng/mL B-Natriuretic Peptide (Less than 100) pg/mL - Radiology Data Radiology results reviewed: Yes I reviewed the patient's radiology results. Chest X-Ray 06/09/17 22:53 IMPRESSION: Moderate interstitial edema or interstitial lung disease and pleural reaction as above D/ / Kash Billy MD / Kash Billy MD Interpreting Provider: Kash Billy MD - EKG Data EKG attestation: Yes I reviewed and interpreted this EKG. EKG shows normal: sinus rhythm Rate: normal Rhythm: NSR Logan/QRS: normal T wave inversions noted in: v1, v2, v3, v4 When compared to previous EKG there are: changes noted (05/2016) Interpretation: nonspecific ST-T wave changes Heart Score - Score History: Moderately Suspicious EKG: Non Specific repolarisation Disturbance Age: Greater than 65 Risk Factors: 1-2 risk factors Troponin: Less than normal limit HEART Score Total: 5 S.B.A.R. - S.B.A.RStella Situation: Demographics Background: Presenting Complaint Assessment: Vital Signs, Course and respsone to treatment, Patient/Family Expectation Recommendation: Barrier(s) to disposition, Recommendation based on pending studies, treatments, or consults S.B.A.RStella Report Given to: Dr. Vladimir MarieALogan Repor Time: 00:21 Attestation Statement - Attestation Attestation: I examined this patient and my medical decision-making was reviewed with the Resident Physician. I agree with the documented findings, disposition and treatment plan as described except to the extent set forth below. Findings consistent with chest pain. Patient did receive nitroglycerin and aspirin. EKG is nondiagnostic for STEMI There is moderate interstitial edema noted on x- ray. Patient will be admitted for further evaluation of chest pain in the setting of interstitial edema pleural thickening.
[2017-06-09 23:18] LABS: Basophils % 0.2 %; Eosinophils # 0.2 K/mcL (0.0-0.6); Hematocrit 31.6 % (37.5-50.1); Immature Granulocytes % 0.5 % (0-4); Lymphocytes # 0.9 K/mcL (0.6-4.6); Lymphocytes % 15.6 %; Mean Corpuscular HGB Conc 31.6 g/dL (31.6-35.5); Mean Corpuscular Volume 85.2 fL (83.0-100.0); Mean Platelet Volume 9.9 fL (9.4-12.4); Monocytes # 0.3 K/mcL (0.0-1.3); Monocytes % 4.9 %; Neutrophils # 4.4 K/mcL (1.6-8.9); Platelet Count 146 K/mcL (140-400); Red Blood Count 3.71 M/mcL (4.19-5.50); Red Cell Distribution Width 13.8 % (11.5-14.5); Segmented Neutrophils % 75.8 %
[2017-06-09 23:24] LABS: INR 1.1; Prothrombin Time 12.2 Seconds (9.4-12.1)
[2017-06-09 23:44] LABS: Troponin I < 0.03 ng/mL (< 0.04)
[2017-06-09] MEDS: Nitroglycerin 0.4 MG TAB.SUBL SL ONE ×2 (23:44→23:49)
[2017-06-09 23:45] LABS: BUN/Creatinine Ratio 12 (6-26); Blood Urea Nitrogen 13 mg/dL (8-23); Carbon Dioxide 32 mEq/L (23-29); Chloride 99 mEq/L (98-107); Glucose 218 mg/dL (70-105); Osmolality,Calculated 289 (280-300); Potassium 4.3 mEq/L (3.5-5.1); Sodium 136 mEq/L (136-145); eGFR For African Americans > 60 (> 60); eGFR For Non-African Americans > 60 (> 60)
[2017-06-09] MEDS ORDERED: *HR* OxyCODONE/APAP 5/325 TABLET PO ONE (23:53)
[2017-06-10] MEDS ORDERED: *HR* FentaNYL (PF) 100 MCG/2 ML VIAL IVP ONE (00:32)
[2017-06-10] MEDS ORDERED: Acetaminophen 325 MG TABLET PO PRN (02:35)
[2017-06-10] MEDS ORDERED: Naloxone 0.4 MG/ML INJ IVP PRN (02:35)
[2017-06-10] MEDS ORDERED: Dextrose Gel 15 GM/37.5 ML TUBE PO PRN ×2 (02:39)
[2017-06-10] MEDS ORDERED: *HR* Dextrose 50 % in Water (Syg) 50 ML SYRINGE IVP PRN (02:39)
[2017-06-10] MEDS ORDERED: D5% in Water 1,000 ML IVC PRN (02:39)
[2017-06-10] MEDS ORDERED: Nitroglycerin 0.4 MG TAB.SUBL SL PRN (02:39)
[2017-06-10] MEDS ORDERED: Ibuprofen 200 MG TABLET PO PRN (02:40)
[2017-06-10] MEDS ORDERED: diazePAM 10 MG TABLET PO PRN (02:40)
[2017-06-10] MEDS ORDERED: Acetylcysteine 10% 2 ML INHSOL IH PRN (02:40)
[2017-06-10] MEDS ORDERED: *HR* OxyCODONE Immed Rel 5 MG TABLET PO PRN (03:42)
[2017-06-10] MEDS: Ipratropium/Albuterol Neb 3 ML IH SCH ×2 (03:54→11:06)
[2017-06-10 04:11] LABS: Basophils % 0.2 %; Eosinophils # 0.2 K/mcL (0.0-0.6); Eosinophils % 3.4 %; Hematocrit 28.2 % (37.5-50.1); Hemoglobin 8.8 g/dL (12.9-16.9); Immature Granulocytes % 0.2 % (0-4); Lymphocytes # 1.1 K/mcL (0.6-4.6); Lymphocytes % 20.9 %; Mean Corpuscular HGB Conc 31.2 g/dL (31.6-35.5); Mean Corpuscular Hemoglobin 26.1 pg (28.0-33.3); Mean Corpuscular Volume 83.7 fL (83.0-100.0); Mean Platelet Volume 9.5 fL (9.4-12.4); Monocytes # 0.3 K/mcL (0.0-1.3); Monocytes % 5.1 %; Neutrophils # 3.6 K/mcL (1.6-8.9); Platelet Count 115 K/mcL (140-400); Red Blood Count 3.37 M/mcL (4.19-5.50); Red Cell Distribution Width 13.9 % (11.5-14.5); Segmented Neutrophils % 70.2 %
[2017-06-10 04:33] LABS: BUN/Creatinine Ratio 12 (6-26); Blood Urea Nitrogen 13 mg/dL (8-23); Calcium 8.4 mg/dL (8.6-10.3); Carbon Dioxide 33 mEq/L (23-29); Chloride 102 mEq/L (98-107); Glucose 207 mg/dL (70-105); Magnesium 1.4 mg/dL (1.6-2.6); Osmolality,Calculated 290 (280-300); Potassium 4.4 mEq/L (3.5-5.1); Sodium 137 mEq/L (136-145); Troponin I < 0.03 ng/mL (< 0.04); eGFR For African Americans > 60 (> 60); eGFR For Non-African Americans > 60 (> 60)
--- NOTE | 2017-06-10 05:15 | Internal Med History&Physical ---
Date of Encounter: 06/10/17 Time of Encounter: 01:00 Internal Medicine - H&P: HPI Chief complaint: Chest pain Admitted From: Home Plans for Post Hospital Care: Home History of present illness: Mr. Hare is a 71 year old male presented to ER for chest pain since 9 PM. Past medical history is significant for chronic back pain on morphine pump, diabetes, hypertension, COPD, sarcoidosis. Patient said the chest pain started around 9 PM when patient is taking breathing treatments. The pain located on left side chest, radiated to bilateral arm and neck, sharp, 10 out of 10. Patient denies shortness of breath , nausea, or diaphoresis. The chest pain lasted about 10 minutes and improved after EMS give patient nitroglycerin. When I saw patient in the emergency room , patient is chest pain-free but still complaint back pain, which is chronic. Patient was admitted to rule out ACS. Past Med Surg Social Fam HX - Past Medical History Medical history: arthritis, COPD, diabetes, GERD, hyperlipidemia, hypertension Psychiatric history: PTSD - Past Surgical History Surgical History: other - Social History Smoking Status: Former smoker Smokeless Tobacco Status: No Alcohol use: none Drug use: none - Family History Mother Living Status: Hx Family Cardiac Disorders: Yes Hx Family Neurologic Disorders: Yes (Alzhemier's) Father Living Status: Hx Family Cardiac Disorders: Yes ([place]) Hx Family Respiratory Disorders: No Hx Family Cancer: No Hx Family GI Disorders: No Hx Family Endocrine Disorder: No Hx Family Neuromuscular Disorders: No Hx Family Neurologic Disorders: No Hx Family HEENT Disorders: No Hx Family Autoimmune Disorders: No Internal Medicine - H&P: Meds Acetylcysteine 10% 4 ml MC Q6HR PRN 06/10/17 [History] Ascorbic Acid [Vitamin C with Nieves Hips] 500 mg PO TID 06/10/17 [History] Atorvastatin Calcium [Lipitor] 80 mg PO HS 06/10/17 [History] Balsam [place] Oil [Venelex Ointment Packet] 5 gm TP DAILY 06/10/17 [History ] Budesonide/Formoterol 160/4.5 [Symbicort 160/4.5] 2 puff IH BIDR 06/10/17 [ History] Cholecalciferol (D-3) [Vitamin D] 3,000 unit PO DAILY 06/10/17 [History] Dextrose [Trueplus Glucose] 15 gm PO DAILY MDD hypoglycemia 06/10/17 [History] Ibuprofen [Motrin] 200 mg PO Q4HR PRN 06/10/17 [History] Insulin ASPART [Novolog Flexpen] 10 unit SQ TID 06/10/17 [History] Insulin Glargine,Hum.rec.anlog [Basaglar Kwikpen U-100] 17 unit SQ DAILY [History] Ipratropium/Albuterol Neb [Duoneb] 3 ml IH Q6HR MDD Shortness of breath [History] Levothyroxine Sodium [Levo-T] 50 mcg PO DAILY 06/10/17 [History] Lisinopril [Zestril] 2.5 mg PO DAILY 06/10/17 [History] Melatonin [Melatonin] 12 mg PO HS 06/10/17 [History] Metformin HCl [Glucophage] 1,000 mg PO BID 06/10/17 [History] Miconazole 2% ointment [Aloe [place] Antifungal Ointment] 1 appl TP TID 06/10/17 [ History] Morphine Sulfate [Arymo ER] 15 mg PO BID 06/10/17 [History] Omeprazole [PriLOSEC] 20 mg PO DAILY 06/10/17 [History] Prazosin HCl [Minipress] 1 mg PO HS 06/10/17 [History] Sertraline [Zoloft] 200 mg PO DAILY 06/10/17 [History] Silver Sulfadiazine Cream [Silvadene] 1 appl TP TID 06/10/17 [History] Tiotropium [Spiriva] 18 mcg IH 0700 06/10/17 [History] Zinc Oxide [Secura Protective] 50 gm TP TID 06/10/17 [History] diazePAM [Valium] 10 mg PO QID PRN 06/10/17 [History] 3 Allergy/AdvReac Type Severity Reaction Status Date / Time gabapentin AdvReac Unknown Verified 03/30/17 13:05 mirtazapine AdvReac Unknown Verified 03/30/17 13:05 propoxyphene [From Darvon] AdvReac Nausea Verified 03/30/17 13:05 tuberculin, purified protein AdvReac Rash Verified 03/30/17 13:05 deriva [From Tubersol] All Systems PM: A 10-system review of systems was performed and is negative for pertinent findings except as documented above in the HPI. - Constitutional Vitals: Temp Pulse Resp BP Pulse Ox 98.5 F 60 16 153/64 96 06/10/17 01:08 06/10/17 01:08 06/10/17 03:53 06/10/17 01:08 06/10/17 03:53 General appearance: Present: A&O X 3, no acute distress, answers questions appropriately - Head Head exam: Present: atraumatic, normocephalic - Eye Eye exam: Present: PERRL, conjuntiva pink, sclera anicteric Pupils: Present: PERRL - Neck Neck exam general surgery: Present: supple, trachea midline. Absent: lymphadenopathy - Respiratory Respiratory exam: Present: CTAB. Absent: accessory muscle use, rales, rhonchi, wheezes - Cardiovascular Cardiovascular exam: Present: RRR, +S1, +S2. Absent: diastolic murmur, gallop, rubs, systolic murmur - GI/Abdominal GI/Abdominal exam: Present: normal bowel sounds, soft, no peritoneal signs. Absent: distended, tenderness - Extremities Exam Extremities exam: Present: warm, radial pulses palpable and symmetrical. Absent : calf tenderness, cyanotic, pedal edema - Neurological Exam Neurological exam: Present: CN II-XII intact, oriented X3, no focal deficits. Absent: pronater drift, facial droop, speech deficit - Skin Skin exam: Present: dry, intact Internal Med - H&P Results - Labs CBC & Chem 7: 06/10/17 03:48 06/10/17 03:48 Labs: Short CBC 06/10/17 Range/Units 03:48 WBC 5.1 (4.3-11.1) K/mcL Hgb 8.8 L (12.9-16.9) g/dL Hct 28.2 L (37.5-50.1) % Plt Count 115 L (140-400) K/mcL Neutrophils # 3.6 (1.6-8.9) K/mcL BMP 06/10/17 03:48 Sodium 137 Potassium 4.4 Chloride 102 Carbon Dioxide 33 H BUN 13 Creatinine 1.05 Glucose 207 H Calcium 8.4 L Cardiac Enzymes 06/10/17 Range/Units 03:48 Troponin I < 0.03 (< 0.04) ng/mL - EKG Data -: EKG Interpreted by Myself EKG shows normal: sinus rhythm, ST-T waves (T-wave inversion on V1 to V4) Rate: normal - EKG Data Prior EKG available for review: yes When compared to previous EKG: there are significant changes Interpretation IM: ischemic changes - Assessment and plan (1) Chest pain Current Visit: Yes Status: Acute Assessment and plan: Patient has chest pain, respond to nitroglycerin treatment. Patient has EKG change with T-wave inversion on V1 to V4. Need to rule out ACS. - Continue cardiac monitoring - Track 3 sets of troponin - Repeat EKG in a.m. - Consul cardiology for further management Qualifiers: Chest pain type: precordial pain Qualified Code(s): R07.2 - Precordial pain (2) DVT prophylaxis Current Visit: No Status: Acute Assessment and plan: Heparin subcutaneously (3) COPD (chronic obstructive pulmonary disease) Current Visit: No Status: Chronic Assessment and plan: Stable. No wheezing. Continue home medications Qualifiers: COPD type: unspecified COPD Qualified Code(s): J44.9 - Chronic obstructive pulmonary disease, unspecified (4) Diabetes mellitus Current Visit: No Status: Chronic Assessment and plan: Continue basal and sliding scale insulin coverage Qualifiers: Diabetes mellitus type: type 2 Diabetes mellitus jail insulin use: unspecified jail insulin use status Diabetes mellitus complication status : with kidney complications Diabetes mellitus complication detail: with chronic kidney disease Chronic kidney disease stage: stage 3 (moderate) Qualified Code(s): E11.22 - Type 2 diabetes mellitus with diabetic chronic kidney disease; N18.3 - Chronic kidney disease, stage 3 (moderate); N18.3 - Chronic kidney disease, stage 3 (moderate) (5) Hypertension Current Visit: No Status: Chronic Assessment and plan: Continue home medications Qualifiers: Hypertension type: essential hypertension Qualified Code(s): I10 - Essential (primary) hypertension - Time Spent With Patient Total time spent is greater than 50% in coordination of care (as documented) at patient's floor/unit and/or counseling patient: 40 minutes Greater than 35 minutes
[2017-06-10] MEDS ORDERED: *HR* Heparin 5,000 UNIT/ML VIAL SQ SCH (06:00)
[2017-06-10] MEDS ORDERED: Tiotropium 18 MCG inhalation IH SCH (07:00)
[2017-06-10] MEDS: Insulin LISPRO 300 UNITS/3 ML VIAL SQ SCH ×2 (08:29→12:04)
[2017-06-10] MEDS ORDERED: Desitin (Zinc Oxide) 56 GM TUBE TP SCH (09:00)
[2017-06-10] MEDS ORDERED: *HR* Morphine Sulfate SR (12 HR) 15 MG TABLET.ER PO SCH (09:00)
[2017-06-10] MEDS ORDERED: Silver Sulfadiazine 50 GM TUBE TP SCH (09:00)
[2017-06-10] MEDS ORDERED: Cholecalciferol (D-3) 1,000 UNIT TABLET PO SCH (09:00)
[2017-06-10] MEDS ORDERED: Ascorbic Acid 500 MG TABLET PO SCH (09:00)
[2017-06-10] MEDS ORDERED: Budesonide/Formoterol 160/4.5 MDI IH SCH (10:00)
--- NOTE | 2017-06-10 10:02 | Cardiology Consult Note ---
<Ashanti Guzmán - Last Filed: 06/10/17 09:58> Date of Encounter: 06/10/17 Time of Encounter: 09:00 Assessment and Plan (1) Chest pain Status: Acute Per cardiology: -Reports single episode of chest pain while at rest. -Denies exertional symptoms. -Deneis current chest pain. -ECG with new T wave inversions noted in leads V2-V5. -Troponins negative x2. -BPs hypertensive 160s on admission. -TTE 11/2015 with LVEF 65-70%, mildly dilated RV with normal function, no segmental wall motion abnormalities. -On statin. Not on BB due to bradycardia, average HR 58. -Of note, Hgb today 8.8, has chronic anemia with baseline hemoglobin 7-10s. -Will check TTE. -Further recommendations pending TTE. Qualifiers: Chest pain type: unspecified Qualified Code(s): R07.9 - Chest pain, unspecified (2) Sarcoidosis Status: Chronic Per cardiology: -History of sarcoidosis. -Wears O2 at all times. -Follows with pulmonary. -Management per primary service. Discussion w patient/family: The assessment and plan as outlined above was discussed with the patient who expressed understanding and agreement. All questions were answered. Thank you for involving us in the care of your patient. Please call with any questions. Discussed and reviewed with . History of Present Illness Consult date: 06/10/17 Requesting physician: Mian Gilbert Consult reason: chest pain, ECG changes Chief complaint: chest pain History of present illness: Mr. Hare is a 71 year old male with a relevant past medical history of DM, COPD , sarcoidosis, PTSD who presented to [facility] with complaints of left sided "bursting" chest pain. Patent states pain started while at rest and radiated to head, arms, and neck. Patient states pain resolved spontaneously. Denies aggravating or alleviating symptoms. Denies exertional symptoms. Denies worsening shortness of breath or worsening fatigue. Denies current chest pain. Past Med Surg Social Fam HX - Past Medical History Attestation: Yes The following information was validated with the patient. Source: patient, old records reviewed Medical history: arthritis, COPD, diabetes, GERD, hyperlipidemia, hypertension Psychiatric history: PTSD - Past Surgical History Surgical History: other - Social History Smoking Status: Former smoker Smokeless Tobacco Status: No Alcohol use: none Drug use: none - Family History Mother Living Status: Hx Family Cardiac Disorders: Yes Hx Family Neurologic Disorders: Yes (Alzhemier's) Father Living Status: Hx Family Cardiac Disorders: Yes ([place]) Hx Family Respiratory Disorders: No Hx Family Cancer: No Hx Family GI Disorders: No Hx Family Endocrine Disorder: No Hx Family Neuromuscular Disorders: No Hx Family Neurologic Disorders: No Hx Family HEENT Disorders: No Hx Family Autoimmune Disorders: No Medications and Allergies Acetylcysteine 10% 4 ml MC Q6HR PRN 06/10/17 [History] Ascorbic Acid [Vitamin C with Nieves Hips] 500 mg PO TID 06/10/17 [History] Atorvastatin Calcium [Lipitor] 80 mg PO HS 06/10/17 [History] Balsam [place] Oil [Venelex Ointment Packet] 5 gm TP DAILY 06/10/17 [History ] Budesonide/Formoterol 160/4.5 [Symbicort 160/4.5] 2 puff IH BIDR 06/10/17 [ History] Cholecalciferol (D-3) [Vitamin D] 3,000 unit PO DAILY 06/10/17 [History] Dextrose [Trueplus Glucose] 15 gm PO DAILY MDD hypoglycemia 06/10/17 [History] Ibuprofen [Motrin] 200 mg PO Q4HR PRN 06/10/17 [History] Insulin ASPART [Novolog Flexpen] 10 unit SQ TID 06/10/17 [History] Insulin Glargine,Hum.rec.anlog [Basaglar Kwikpen U-100] 17 unit SQ DAILY [History] Ipratropium/Albuterol Neb [Duoneb] 3 ml IH Q6HR MDD Shortness of breath [History] Levothyroxine Sodium [Levo-T] 50 mcg PO DAILY 06/10/17 [History] Lisinopril [Zestril] 2.5 mg PO DAILY 06/10/17 [History] Melatonin [Melatonin] 12 mg PO HS 06/10/17 [History] Metformin HCl [Glucophage] 1,000 mg PO BID 06/10/17 [History] Miconazole 2% ointment [Aloe [place] Antifungal Ointment] 1 appl TP TID 06/10/17 [ History] Morphine Sulfate [Arymo ER] 15 mg PO BID 06/10/17 [History] Omeprazole [PriLOSEC] 20 mg PO DAILY 06/10/17 [History] Prazosin HCl [Minipress] 1 mg PO HS 06/10/17 [History] Sertraline [Zoloft] 200 mg PO DAILY 06/10/17 [History] Silver Sulfadiazine Cream [Silvadene] 1 appl TP TID 06/10/17 [History] Tiotropium [Spiriva] 18 mcg IH 0700 06/10/17 [History] Zinc Oxide [Secura Protective] 50 gm TP TID 06/10/17 [History] diazePAM [Valium] 10 mg PO QID PRN 06/10/17 [History] 3 Allergy/AdvReac Type Severity Reaction Status Date / Time gabapentin AdvReac Unknown Verified 03/30/17 13:05 mirtazapine AdvReac Unknown Verified 03/30/17 13:05 propoxyphene [From Darvon] AdvReac Nausea Verified 03/30/17 13:05 tuberculin, purified protein AdvReac Rash Verified 03/30/17 13:05 deriva [From Tubersol] All Systems Review: The remainder of the systems were reviewed and are negative - Cardiovascular Cardiovascular: as per HPI, chest pain at rest Physical Examination Vital Signs, Last 4 Hours Temp Pulse Resp BP Pulse Ox 06/10/17 06:50 97.4 F L 56 16 148/77 97 General: Conversant, No Apparent Distress HEENT: Atraumatic, Normocephaly, Mucus Membranes Moist Neck: No JVD, Normal carotid pulses Cardiac: Reg Rate and Rhythm, Normal S1 and S2, No Murmur Lungs: Other (Lung sounds diminished throughout) Neuro: Alert and responsive, No focal deficits noted Abdomen: Soft, Non-Tender Skin: No rashes noted on visualized skin Musculoskeletal: No Chest Wall Tenderness Extremities: No Clubbing, No Cyanosis, No Edema, Normal Pulses Results 06/10/17 03:48 06/10/17 03:48 Lab Results Impressions Chest X-Ray 06/09/17 22:53 IMPRESSION: Moderate interstitial edema or interstitial lung disease and pleural reaction as above D/ / Kash Billy MD / Kash Billy MD Interpreting Provider: Kash Billy MD Active Medications Acetaminophen (Tylenol) 650 mg PO Q6HR PRN PRN Reason: Mild Pain/Fever Stop: 12/10/17 02:36 Acetylcysteine (Acetylcysteine 10%) 4 ml IH Q6HR PRN PRN Reason: Shortness Of Breath Albuterol/Ipratropium (Duoneb) 3 ml IH [id number] ERIC Stop: 12/10/17 04:01 Last Admin: 06/10/17 03:54 Dose: 3 ml Ascorbic Acid (Vitamin C) 500 mg PO TID ERIC Stop: 12/10/17 09:01 Last Admin: 06/10/17 08:24 Dose: 500 mg Atorvastatin Calcium (Lipitor) 80 mg PO HS REPLACED BY [facility] Stop: 12/10/17 21:01 Budesonide/Formoterol Fumarate (Symbicort) 2 puff IH BIDR ERIC PRN Reason: Protocol Stop: 12/10/17 10:01 Dextrose/Water (Dextrose 50% (Syg)) 25 ml IVP AD PRN PRN Reason: Hypoglycemia Stop: 12/10/17 02:40 Diazepam (Valium) 10 mg PO QID PRN PRN Reason: Anxiety Stop: 12/10/17 02:41 Last Admin: 06/10/17 08:24 Dose: 10 mg Glucagon (Glucagen) 1 mg IM ONCE PRN PRN Reason: Hypoglycemia Stop: 12/10/17 02:40 Glucose (Gluctose) 15 gm PO ONCE PRN PRN Reason: Hypoglycemia Stop: 12/10/17 02:40 Glucose (Gluctose) 30 gm PO ONCE PRN PRN Reason: Hypoglycemia Stop: 12/10/17 02:40 Heparin Sodium (Porcine) (Heparin) 5,000 unit SQ Q12HCO ERIC Stop: 12/10/17 06:01 Last Admin: 06/10/17 06:10 Dose: Not Given Dextrose (Dextrose 5%) 1,000 mls @ 100 mls/hr IVC .Q10H PRN PRN Reason: HYPOGLYCEMIA Stop: 12/10/17 02:40 Ibuprofen (Motrin) 200 mg PO Q4HR PRN; Protocol PRN Reason: Pain Stop: 12/10/17 02:41 Insulin Detemir (Levemir) 17 unit SQ HS REPLACED BY [facility] Stop: 12/10/17 21:01 Insulin Human Lispro (Humalog) 0 units SQ HS REPLACED BY [facility] PRN Reason: Protocol Stop: 12/10/17 21:01 Insulin Human Lispro (Humalog) 0 units SQ TIDAC REPLACED BY [facility] PRN Reason: Protocol Stop: 12/10/17 07:31 Last Admin: 06/10/17 08:29 Dose: 4 units Levothyroxine Sodium (Synthroid) 50 mcg PO 0630 REPLACED BY [facility] Stop: 12/10/17 06:31 Last Admin: 06/10/17 05:19 Dose: 50 mcg Lisinopril (Zestril) 2.5 mg PO DAILY REPLACED BY [facility] PRN Reason: Protocol Stop: 12/10/17 09:01 Last Admin: 06/10/17 08:24 Dose: 2.5 mg Melatonin (Melatonin) 12 mg PO HS REPLACED BY [facility] Stop: 12/10/17 21:01 Morphine Sulfate (Ms Contin) 15 mg PO BID REPLACED BY [facility] Stop: 12/10/17 09:01 Last Admin: 06/10/17 08:25 Dose: 15 mg Naloxone HCl (Narcan) 0.4 mg IVP Q2MIN PRN PRN Reason: SEE COMMENTS Stop: 12/10/17 02:36 Nitroglycerin (Nitroglycerin) 0.4 mg SL Q5MIN PRN PRN Reason: Chest Pain Stop: 12/10/17 02:40 Omeprazole (Prilosec) 20 mg PO 0630 REPLACED BY [facility] PRN Reason: Protocol Stop: 12/10/17 06:31 Last Admin: 06/10/17 05:19 Dose: 20 mg Oxycodone HCl (Roxicodone) 10 mg PO Q6HR PRN; Protocol PRN Reason: Severe Pain Stop: 12/10/17 03:43 Last Admin: 06/10/17 04:03 Dose: 10 mg Prazosin HCl (Minipress) 1 mg PO HS REPLACED BY [facility] Stop: 12/10/17 21:01 Sertraline HCl (Zoloft) 200 mg PO DAILY REPLACED BY [facility] Stop: 12/10/17 09:01 Last Admin: 06/10/17 08:25 Dose: 200 mg Silver Sulfadiazine (Silvadene) 1 appl TP TID REPLACED BY [facility] Stop: 12/10/17 09:01 Last Admin: 06/10/17 08:27 Dose: 1 appl Tiotropium [place] (Spiriva) 18 mcg IH 0700 ERIC Stop: 12/10/17 07:01 Vitamin D (Vitamin D) 1,000 unit PO DAILY ERIC Stop: 12/10/17 09:01 Last Admin: 06/10/17 08:24 Dose: 1,000 unit Zinc Oxide (Desitin) 50 appl TP TID ERIC Stop: 12/10/17 09:01 Last Admin: 06/10/17 08:27 Dose: Not Given Laboratory Tests 06/09/17 06/09/17 06/09/17 23:09 23:09 23:09 Hgb 10.0 L Creatinine Troponin I < 0.03 B-Natriuretic Peptide 89 06/10/17 06/10/17 03:48 03:48 Hgb 8.8 L Creatinine 1.05 Troponin I < 0.03 B-Natriuretic Peptide - Imaging and Cardiology Chest Xray: report reviewed Echo: pending, report reviewed - EKG Interpretation EKG results cardiology: personally reviewed (ECG with SR, HR 74. T wave inversions noted in leads V2-V5.) Consult Discharge Plan - Plan Referrals: [facility]Primary Care Provider[facility] - <Raulito Lua - Last Filed: 06/11/17 09:20> Date of Encounter: 06/11/17 - Attending Attestation I have personally performed a face to face evaluation on this patient. I have reviewed and agree with the care plan. History and Exam by me shows: CC: Chest pain PT presents to ER with complaint of sudden onset severe 10/10 explosive sharp stabbing chest pain, mid sternal, radiated into both arms and into neck, lasted 3 to 5 secs, not associated with nausea, diaphoresis, or shortness of breath. Pt reports only one episode, no reoccurence. He has not had any symptoms similar to this pain in the past. PMHx: reviewed PE: pt seen and examined, agree with findings as documented. IMP/Plan: 1. Chest pain, very atypical, unclear etiology, will rule out for ACS, EKG and troponin negative so far. 2. Sarcoidosis: No hx cardiac involvement, no indication of cardiac involvement on EKG, ordered echo, further recs pending cardiac imaging. Assessment and Plan Discussion w patient/family: The assessment and plan as outlined above was discussed with the patient and/or family members who expressed understanding and agreement. All questions were answered. Thank you for involving us in the care of your patient. Please call with any questions. History of Present Illness History of present illness: Mr. Hare is a 71 year old male All Systems Review: The remainder of the systems were reviewed and are negative Results 06/10/17 03:48 06/10/17 03:48 Lab Results 06/10/17 10:00 Troponin I < 0.03
[2017-06-10 11:02] VITALS: BP 141/73
--- NOTE | 2017-06-10 18:31 | Discharge Summary ---
Orders not resulted at time of discharge: Pending orders 06/10/17 06:00 ECG 12 lead ECG [ECG] AM 0600 Date of Encounter: 06/10/17 Time of Encounter: 11:00 - Discharge Diagnosis (1) COPD (chronic obstructive pulmonary disease) Priority: Secondary Status: Chronic Qualifiers: COPD type: unspecified COPD Qualified Code(s): J44.9 - Chronic obstructive pulmonary disease, unspecified (2) Hypertension Priority: Secondary Status: Chronic Qualifiers: Hypertension type: essential hypertension Qualified Code(s): I10 - Essential (primary) hypertension (3) Chest pain Priority: Primary Status: Acute Qualifiers: Chest pain type: unspecified Qualified Code(s): R07.9 - Chest pain, unspecified (4) Diabetes mellitus Priority: Secondary Status: Chronic Qualifiers: Diabetes mellitus type: type 2 Diabetes mellitus manager intermediate insulin use: unspecified mcc insulin use status Diabetes mellitus complication status : with kidney complications Diabetes mellitus complication detail: with chronic kidney disease Chronic kidney disease stage: stage 3 (moderate) Qualified Code(s): E11.22 - Type 2 diabetes mellitus with diabetic chronic kidney disease; N18.3 - Chronic kidney disease, stage 3 (moderate); N18.3 - Chronic kidney disease, stage 3 (moderate) Hospital course: Mr. Hare is a 71 year old male past medical history of arthritis COPD diabetes GERD hyperlipidemia hypertension. Patient originally presented to the ER with 10 out 10 left-sided chest pain radiating to his arms bilaterally he was given nitroglycerin which relieved his pain. EKG with new T-wave inversions noted in leads V2 through V5 troponins were negative 2 He was admitted for rule out ACS urine he was evaluated by cardiology awaiting TTE results. Patient requesting to leave AGAINST MEDICAL ADVICE. Advised patient to complete workup and that he is at risk for having heart attack and possibly . Patient stated he did not care he is fine he is going home. Patient left AGAINST MEDICAL ADVICE - Time Spent with Patient Total time spent providing and/or coordinating discharge services: - Discharge Medications Home Medications: Acetylcysteine 10% 4 ml MC Q6HR PRN 06/10/17 [History] Ascorbic Acid [Vitamin C with Nieves Hips] 500 mg PO TID 06/10/17 [History] Atorvastatin Calcium [Lipitor] 80 mg PO HS 06/10/17 [History] Balsam [place] Oil [Venelex Ointment Packet] 5 gm TP DAILY 06/10/17 [History ] Budesonide/Formoterol 160/4.5 [Symbicort 160/4.5] 2 puff IH BIDR 06/10/17 [ History] Cholecalciferol (D-3) [Vitamin D] 3,000 unit PO DAILY 06/10/17 [History] Dextrose [Trueplus Glucose] 15 gm PO DAILY MDD hypoglycemia 06/10/17 [History] Ibuprofen [Motrin] 200 mg PO Q4HR PRN 06/10/17 [History] Insulin ASPART [Novolog Flexpen] 10 unit SQ TID 06/10/17 [History] Insulin Glargine,Hum.rec.anlog [Basaglar Kwikpen U-100] 17 unit SQ DAILY [History] Ipratropium/Albuterol Neb [Duoneb] 3 ml IH Q6HR MDD Shortness of breath [History] Levothyroxine Sodium [Levo-T] 50 mcg PO DAILY 06/10/17 [History] Lisinopril [Zestril] 2.5 mg PO DAILY 06/10/17 [History] Melatonin [Melatonin] 12 mg PO HS 06/10/17 [History] Metformin HCl [Glucophage] 1,000 mg PO BID 06/10/17 [History] Miconazole 2% ointment [Aloe [place] Antifungal Ointment] 1 appl TP TID 06/10/17 [ History] Morphine Sulfate [Arymo ER] 15 mg PO BID 06/10/17 [History] Omeprazole [PriLOSEC] 20 mg PO DAILY 06/10/17 [History] Prazosin HCl [Minipress] 1 mg PO HS 06/10/17 [History] Sertraline [Zoloft] 200 mg PO DAILY 06/10/17 [History] Silver Sulfadiazine Cream [Silvadene] 1 appl TP TID 06/10/17 [History] Tiotropium [Spiriva] 18 mcg IH 0700 06/10/17 [History] Zinc Oxide [Secura Protective] 50 gm TP TID 06/10/17 [History] diazePAM [Valium] 10 mg PO QID PRN 06/10/17 [History] Allergies/Adverse Reactions: 3 Allergy/AdvReac Type Severity Reaction Status Date / Time gabapentin AdvReac Unknown Verified 03/30/17 13:05 mirtazapine AdvReac Unknown Verified 03/30/17 13:05 propoxyphene [From Darvon] AdvReac Nausea Verified 03/30/17 13:05 tuberculin, purified protein AdvReac Rash Verified 03/30/17 13:05 deriva [From Tubersol] Date of admission: 06/10/17 00:28 [facility] Consults: 06/10/17 02:43 Consult to Cardiology [CONS] Routine Comment: Consulting Provider: Cardiology Kristine Reason for Consult: Chest pain with EKG changes (T inversion on V1-V4) Call Completed: No - Constitutional Vitals: Temp Pulse Resp BP Pulse Ox 97.8 F 58 15 141/73 97 06/10/17 10:57 06/10/17 10:57 06/10/17 10:57 06/10/17 10:57 06/10/17 10:57 General appearance: Present: A&O X 3, no acute distress, answers questions appropriately - Patient Status Disposition: Left Against Medical Advice Condition: Fair - Discharge Instructions Follow Up With: [facility] [Primary Care Provider] -
[2017-06-10] MEDS ORDERED: Insulin LISPRO 300 UNITS/3 ML VIAL SQ SCH (21:00)
[2017-06-10] MEDS ORDERED: Insulin DETEMIR 100 UNIT/ML X5UNITS SQ SCH (21:00)
[2017-06-10] MEDS ORDERED: Melatonin 3 MG TABLET PO SCH (21:00)
[2017-06-11] MEDS ORDERED: Aspirin Enteric Coated 81 MG Tablet PO SCH (09:00)
--- NOTE | 2017-06-12 19:10 | Electrocardiograph Report ---
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
== END 2017-06-10 13:08 | disposition left against medical advice (07) ==
LOC: 3BNU 22:43 → EMEROO 22:43 → 3BNU 06-10 01:03
PROVIDERS: ADMIT Internal Medicine; ATTEND Internal Medicine

== ENCOUNTER 2017-07-25 19:19 | Inpatient (IN) ==
--- NOTE | 2017-07-25 20:03 | Emergency Department Note ---
Disposition Clinical Impression: Generalized weakness Disposition: Admitted As Inpatient Condition: Fair General Adult HPI - General Chief complaint: ED Altered Mental Status Stated complaint: lethargic Time Seen by Provider: 07/25/17 19:24 Source: patient, EMS Limitations: no limitations Nursing Notes Reviewed: Yes Vital Signs Reviewed: Yes - History of Present Illness HPI Narrative: 71-year-old male presents for generalized for of generalized weakness. Patient has a history of chronic back pain on a morphine pump. Patient also has a history of diabetes on metformin, COPD with baseline oxygen of 2-3 L. Much of the history is provided via the who states the patient has become increasingly weak over the past 2 weeks. States the patient has had fallen a couple times backwards without any known loss of conscious. Patient had a morphine pump that has been managed at [facility]. No recent changes in medications. Patient denies any chest pain and has chronic dyspnea. Patient denies any abdominal pain. No nausea or vomiting. Family is concerned about the patient' s generalized weakness and recurrent falls. Pain Scale: 3 - Related Data Home Medications Medication Instructions Recorded Confirmed Acetylcysteine 10% 4 ml MC Q6HR PRN 06/10/17 07/25/17 Ascorbic Acid [Vitamin C with Nieves 500 mg PO TID 06/10/17 07/25/17 Hips] Atorvastatin Calcium [Lipitor] 80 mg PO HS 06/10/17 07/25/17 Budesonide/Formoterol 160/4.5 2 puff IH BIDR 06/10/17 07/25/17 [Symbicort 160/4.5] Cholecalciferol (D-3) [Vitamin D] 3,000 unit PO DAILY 06/10/17 07/25/17 Dextrose [Trueplus Glucose] 15 gm PO DAILY MDD hypoglycemia 06/10/17 06/10/17 Ibuprofen [Motrin] 200 mg PO Q4HR PRN 06/10/17 07/25/17 Insulin ASPART [Novolog Flexpen] 10 unit SQ TID 06/10/17 07/25/17 Insulin Glargine,Hum.rec.anlog 17 unit SQ DAILY 06/10/17 07/25/17 [Basaglar Kwikpen U-100] Ipratropium/Albuterol Neb [Duoneb] 3 ml IH Q6HR MDD Shortness of 06/10/17 breath Levothyroxine Sodium [Levo-T] 50 mcg PO DAILY 06/10/17 07/25/17 Lisinopril [Zestril] 2.5 mg PO DAILY 06/10/17 07/25/17 Melatonin [Melatonin] 12 mg PO HS 06/10/17 07/25/17 Metformin HCl [Glucophage] 1,000 mg PO BID 06/10/17 06/10/17 Morphine Sulfate [Arymo ER] 15 mg PO PRN 06/10/17 06/10/17 Omeprazole [PriLOSEC] 20 mg PO DAILY 06/10/17 07/25/17 Prazosin HCl [Minipress] 1 mg PO HS 06/10/17 07/25/17 Sertraline [Zoloft] 200 mg PO DAILY 06/10/17 07/25/17 Tiotropium [Spiriva] 18 mcg IH 0700 06/10/17 07/25/17 Zinc Oxide [Secura Protective] 50 gm TP TID 06/10/17 07/25/17 diazePAM [Valium] 10 mg PO QID PRN 06/10/17 07/25/17 Allergies Allergy/AdvReac Type Severity Reaction Status Date / Time gabapentin AdvReac Unknown Verified 07/25/17 19:21 mirtazapine AdvReac Unknown Verified 07/25/17 19:21 propoxyphene [From Darvon] AdvReac Nausea Verified 07/25/17 19:21 tuberculin, purified protein AdvReac Rash Verified 07/25/17 19:21 deriva [From Tubersol] All systems ED: reviewed and negative except as stated. Constitutional: Denies: fever Cardiovascular: Denies: chest pain Respiratory: Denies: cough, dyspnea Gastrointestinal: Denies: abdominal pain, nausea, vomiting Past Medical History - Past Medical History Source: patient Medical history: Reports: arthritis, COPD, diabetes, GERD, hyperlipidemia, hypertension Surgical history: Reports: other Psychiatric history: Reports: PTSD - Social History Smoking Status: Former smoker Smokeless Tobacco Status: No Alcohol use: Reports: none Drug use: Reports: none Physical Exam - General Limitations: altered mental status General appearance: alert, lethargic - Head Head exam: atraumatic, normocephalic, normal inspection - Eye Eye exam: Present: normal appearance, PERRL, EOMI - ENT ENT exam: normal exam - Neck Neck exam: Present: normal inspection, trachea midline - Chest Chest inspection: Present: normal inspection, symmetric chest wall rise - Respiratory Respiratory exam: Present: prolonged expiratory phase. Absent: normal lung sounds bilaterally - Cardiovascular Cardiovascular exam: Present: regular rate, normal rhythm - Abdominal Exam Abdominal exam: Present: soft, Non-Tender - Extremities Exam Extremities exam: Present: normal inspection. Absent: pedal edema - Back Exam Back exam: Present: normal inspection - Neurological Exam Neurological exam: Present: alert, CN II-XII intact - Expanded Neurological Exam Motor strength - LUE: 5/5 Motor strength - RUE: 5/5 Motor strength - LLE: 5/5 Motor strength - RLE: 5/5 Coma Scale Eye Opening: Spontaneous Coma Scale Motor Response: Obeys Commands Coma Scale Verbal Response: Oriented Coma Scale Total: 15 - Skin Skin exam: Present: warm, dry, intact, normal color Course Course Narrative: Patient seen and examined. Patient will get altered mental status generally is weakness evaluation. Disposition likely admission. - Reevaluation(s) Reevaluation #1: Patient appears to be more appropriate. Patient initially declined admission however now states the patient would not cooperate with admission. Patient will be admitted for further evaluation. Time: 23:00 Vital Signs Temperature 98.1 F 07/25/17 19:21 Pulse Rate 83 07/25/17 19:21 Respiratory Rate 20 07/25/17 19:21 Blood Pressure 167/83 07/25/17 19:21 O2 Sat by Pulse Oximetry 98 07/25/17 19:21 Temperature 98.1 F 07/26/17 03:18 Pulse Rate 65 07/26/17 03:18 Respiratory Rate 14 07/26/17 03:18 Blood Pressure 139/65 07/26/17 03:18 O2 Sat by Pulse Oximetry 98 07/26/17 03:18 Oxygen Delivery Oxygen Delivery Nasal Cannula Medical Decision Making - [facility] Narrative Medical decision making narrative: 71-year-old male presents for evaluation of generalized weakness. Patient was transferred from the [place]. Patient's history was provided via the family. states that the patient has become increasingly weak as a risk of falling. Patient does have a pain pump which is been in place and manifested [facility]. No changes made directly to the pain pump. Patient also is on Valium 10 mg 4 times a day. Patient's generalized weakness is likely related to the patient's polypharmacy regarding his medications. Patient did have a chest x-ray which was concerning for pulmonary edema versus infiltrate. CT scan will be obtained. - Medical Records Medical records reviewed: Yes I reviewed the patient's medical records. 2016 Impressions: Normal LV chamber size, wall thickness, and systolic function. LVEF 65-70%. Mildly dilated right ventricle with normal systolic function. No significant valvular dysfunction. Unable to estimate RVSP due to lack of TR jet. - Lab Data Lab results reviewed: Yes I reviewed the patient's lab results. Result diagrams: 07/26/17 05:14 07/26/17 05:14 Lab Results 07/25/17 07/25/17 07/25/17 Range/Units 19:30 19:30 19:30 WBC (4.3-11.1) K/mcL RBC (4.19-5.50) M/mcL Hgb (12.9-16.9) g/dL Hct (37.5-50.1) % MCV (83.0-100.0) fL MCH (28.0-33.3) pg MCHC (31.6-35.5) g/dL RDW (11.5-14.5) % Plt Count (140-400) K/mcL MPV (9.4-12.4) fL Immature Gran % (0-4) % Seg Neutrophils % % Lymphocytes % % Monocytes % % Eosinophils % % Basophils % % Neutrophils # (1.6-8.9) K/mcL Lymphocytes # (0.6-4.6) K/mcL Monocytes # (0.0-1.3) K/mcL Eosinophils # (0.0-0.6) K/mcL Basophils # (0.0-0.2) K/mcL PT (9.4-12.1) Seconds INR APTT (26.0-36.0) Seconds Sample Site ABG pH (7.32-7.45) pH Units ABG pCO2 (35-45) mmHg ABG pO2 (85-104) mmHg ABG HCO3 (21-27) mEq/L ABG Total CO2 (20-26) mEq/L ABG O2 Saturation (95-98) % ABG Base Excess (-2 to 3) mEq/L Marlon Test O2 Delivery Device Inspired O2 (1-15=lpm [id number]=%) Sodium Cancelled Potassium Cancelled Chloride Cancelled Carbon Dioxide Cancelled BUN Cancelled Creatinine Cancelled Est GFR ( Amer) Cancelled Est GFR (Non-Af Amer) Cancelled BUN/Creatinine Ratio Cancelled Glucose Cancelled Calculated Osmolality Cancelled Lactic Acid (0.5-2.2) mmol/L Calcium Cancelled Total Bilirubin Cancelled Direct Bilirubin Cancelled Indirect Bilirubin Cancelled AST Cancelled ALT Cancelled Alkaline Phosphatase Cancelled Troponin I < 0.03 (< 0.04) ng/mL B-Natriuretic Peptide (Less than 100) pg/mL Serum Total Protein Cancelled Albumin Cancelled Globulin Cancelled Albumin/Globulin Ratio Cancelled Urine Color (Yellow) Urine Clarity (Clear) Urine pH (5.0-8.0) pH Units Ur Specific [place] (1.010-1.025) Urine Protein (Neg-Trace) mg/dL Urine Glucose (UA) (Normal) mg/dL Urine Ketones (Negative) mg/dL Urine Blood (Negative) Urine Nitrite (Negative) Urine Bilirubin (Negative) Urine Urobilinogen (Normal) mg/dL Ur Leukocyte Esterase (Negative) Urine Microscopic RBC (0-3) per hpf Ur Squamous Epith Cells (None-Few) per lpf Urine Mucus (Few) Ur Culture Indicated? (NO) Urine Opiates Screen (Ecxepa=117) ng/mL Ur Barbiturates Screen (Qhsldi=818) ng/mL Ur Phencyclidine Scrn (Cutoff=25) ng/mL Ur Amphetamines Screen (Vszhem=4194) ng/mL U Benzodiazepines Scrn (Lpfnqq=090) ng/mL Urine Cocaine Screen (Cutoff= 300) ng/mL U Marijuana (THC) Screen (Cutoff = 50) ng/mL Ethyl Alcohol Cancelled Specimen Rejected Clotted Hemolyzed 07/25/17 07/25/17 07/25/17 Range/Units 20:00 20:00 20:00 WBC 6.3 (4.3-11.1) K/mcL RBC 3.79 L (4.19-5.50) M/mcL Hgb 9.9 L (12.9-16.9) g/dL Hct 32.0 L (37.5-50.1) % MCV 84.4 (83.0-100.0) fL MCH 26.1 L (28.0-33.3) pg MCHC 30.9 L (31.6-35.5) g/dL RDW 13.2 (11.5-14.5) % Plt Count 137 L (140-400) K/mcL MPV 10.7 (9.4-12.4) fL Immature Gran % 0.2 (0-4) % Seg Neutrophils % 82.4 % Lymphocytes % 10.7 % Monocytes % 5.3 % Eosinophils % 1.1 % Basophils % 0.3 % Neutrophils # 5.2 (1.6-8.9) K/mcL Lymphocytes # 0.7 (0.6-4.6) K/mcL Monocytes # 0.3 (0.0-1.3) K/mcL Eosinophils # 0.1 (0.0-0.6) K/mcL Basophils # 0.0 (0.0-0.2) K/mcL PT 10.8 (9.4-12.1) Seconds INR 1.0 APTT 18.9 L (26.0-36.0) Seconds Sample Site ABG pH (7.32-7.45) pH Units ABG pCO2 (35-45) mmHg ABG pO2 (85-104) mmHg ABG HCO3 (21-27) mEq/L ABG Total CO2 (20-26) mEq/L ABG O2 Saturation (95-98) % ABG Base Excess (-2 to 3) mEq/L Marlon Test O2 Delivery Device Inspired O2 (1-15=lpm et86-198=%) Sodium Potassium Chloride Carbon Dioxide BUN Creatinine Est GFR ( Amer) Est GFR (Non-Af Amer) BUN/Creatinine Ratio Glucose Calculated Osmolality Lactic Acid 1.4 (0.5-2.2) mmol/L Calcium Total Bilirubin Direct Bilirubin Indirect Bilirubin AST ALT Alkaline Phosphatase Troponin I (< 0.04) ng/mL B-Natriuretic Peptide (Less than 100) pg/mL Serum Total Protein Albumin Globulin Albumin/Globulin Ratio Urine Color (Yellow) Urine Clarity (Clear) Urine pH (5.0-8.0) pH Units Ur Specific [place] (1.010-1.025) Urine Protein (Neg-Trace) mg/dL Urine Glucose (UA) (Normal) mg/dL Urine Ketones (Negative) mg/dL Urine Blood (Negative) Urine Nitrite (Negative) Urine Bilirubin (Negative) Urine Urobilinogen (Normal) mg/dL Ur Leukocyte Esterase (Negative) Urine Microscopic RBC (0-3) per hpf Ur Squamous Epith Cells (None-Few) per lpf Urine Mucus (Few) Ur Culture Indicated? (NO) Urine Opiates Screen (Hgqijh=211) ng/mL Ur Barbiturates Screen (Fcqidq=600) ng/mL Ur Phencyclidine Scrn (Cutoff=25) ng/mL Ur Amphetamines Screen (Xerudm=7780) ng/mL U Benzodiazepines Scrn (Zococx=756) ng/mL Urine Cocaine Screen (Cutoff= 300) ng/mL U Marijuana (THC) Screen (Cutoff = 50) ng/mL Ethyl Alcohol Specimen Rejected 07/25/17 07/25/17 07/25/17 Range/Units 20:00 20:05 21:00 WBC (4.3-11.1) K/mcL RBC (4.19-5.50) M/mcL Hgb (12.9-16.9) g/dL Hct (37.5-50.1) % MCV (83.0-100.0) fL MCH (28.0-33.3) pg MCHC (31.6-35.5) g/dL RDW (11.5-14.5) % Plt Count (140-400) K/mcL MPV (9.4-12.4) fL Immature Gran % (0-4) % Seg Neutrophils % % Lymphocytes % % Monocytes % % Eosinophils % % Basophils % % Neutrophils # (1.6-8.9) K/mcL Lymphocytes # (0.6-4.6) K/mcL Monocytes # (0.0-1.3) K/mcL Eosinophils # (0.0-0.6) K/mcL Basophils # (0.0-0.2) K/mcL PT (9.4-12.1) Seconds INR APTT (26.0-36.0) Seconds Sample Site L Brach ABG pH 7.37 (7.32-7.45) pH Units ABG pCO2 61 H (35-45) mmHg ABG pO2 76 L (85-104) mmHg ABG HCO3 35 H (21-27) mEq/L ABG Total CO2 37 H (20-26) mEq/L ABG O2 Saturation 94 L (95-98) % ABG Base Excess 8 H (-2 to 3) mEq/L Marlon Test N/A O2 Delivery Device Cannula Inspired O2 2.5 (1-15=lpm ac87-126=%) Sodium 135 L Potassium 4.7 Chloride 97 L Carbon Dioxide 34 H BUN 18 Creatinine 1.19 Est GFR ( Amer) > 60 Est GFR (Non-Af Amer) > 60 BUN/Creatinine Ratio 15 Glucose 241 H Calculated Osmolality 290 Lactic Acid (0.5-2.2) mmol/L Calcium 9.0 Total Bilirubin 0.3 Direct Bilirubin 0.1 Indirect Bilirubin 0.2 AST 15 ALT 11 Alkaline Phosphatase 113 H Troponin I (< 0.04) ng/mL B-Natriuretic Peptide (Less than 100) pg/mL Serum Total Protein 7.3 Albumin 3.9 Globulin 3.4 Albumin/Globulin Ratio 1.1 Urine Color Yellow (Yellow) Urine Clarity Clear (Clear) Urine pH 6.0 (5.0-8.0) pH Units Ur Specific [place] 1.025 (1.010-1.025) Urine Protein 30 H (Neg-Trace) mg/dL Urine Glucose (UA) 100 H (Normal) mg/dL Urine Ketones Negative (Negative) mg/dL Urine Blood Negative (Negative) Urine Nitrite Negative (Negative) Urine Bilirubin Negative (Negative) Urine Urobilinogen Normal (Normal) mg/dL Ur Leukocyte Esterase Negative (Negative) Urine Microscopic RBC 0-3 (0-3) per hpf Ur Squamous Epith Cells Few (None-Few) per lpf Urine Mucus Few (Few) Ur Culture Indicated? NO (NO) Urine Opiates Screen (Abrgnq=182) ng/mL Ur Barbiturates Screen (Ovywyy=598) ng/mL Ur Phencyclidine Scrn (Cutoff=25) ng/mL Ur Amphetamines Screen (Bbypid=6387) ng/mL U Benzodiazepines Scrn (Wnslrs=625) ng/mL Urine Cocaine Screen (Cutoff= 300) ng/mL U Marijuana (THC) Screen (Cutoff = 50) ng/mL Ethyl Alcohol < 10 Specimen Rejected 07/25/17 07/25/17 Range/Units 21:00 21:46 WBC (4.3-11.1) K/mcL RBC (4.19-5.50) M/mcL Hgb (12.9-16.9) g/dL Hct (37.5-50.1) % MCV (83.0-100.0) fL MCH (28.0-33.3) pg MCHC (31.6-35.5) g/dL RDW (11.5-14.5) % Plt Count (140-400) K/mcL MPV (9.4-12.4) fL Immature Gran % (0-4) % Seg Neutrophils % % Lymphocytes % % Monocytes % % Eosinophils % % Basophils % % Neutrophils # (1.6-8.9) K/mcL Lymphocytes # (0.6-4.6) K/mcL Monocytes # (0.0-1.3) K/mcL Eosinophils # (0.0-0.6) K/mcL Basophils # (0.0-0.2) K/mcL PT (9.4-12.1) Seconds INR APTT (26.0-36.0) Seconds Sample Site ABG pH (7.32-7.45) pH Units ABG pCO2 (35-45) mmHg ABG pO2 (85-104) mmHg ABG HCO3 (21-27) mEq/L ABG Total CO2 (20-26) mEq/L ABG O2 Saturation (95-98) % ABG Base Excess (-2 to 3) mEq/L Marlon Test O2 Delivery Device Inspired O2 (1-15=lpm vy46-724=%) Sodium Potassium Chloride Carbon Dioxide BUN Creatinine Est GFR ( Amer) Est GFR (Non-Af Amer) BUN/Creatinine Ratio Glucose Calculated Osmolality Lactic Acid (0.5-2.2) mmol/L Calcium Total Bilirubin Direct Bilirubin Indirect Bilirubin AST ALT Alkaline Phosphatase Troponin I (< 0.04) ng/mL B-Natriuretic Peptide 49 (Less than 100) pg/mL Serum Total Protein Albumin Globulin Albumin/Globulin Ratio Urine Color (Yellow) Urine Clarity (Clear) Urine pH (5.0-8.0) pH Units Ur Specific [place] (1.010-1.025) Urine Protein (Neg-Trace) mg/dL Urine Glucose (UA) (Normal) mg/dL Urine Ketones (Negative) mg/dL Urine Blood (Negative) Urine Nitrite (Negative) Urine Bilirubin (Negative) Urine Urobilinogen (Normal) mg/dL Ur Leukocyte Esterase (Negative) Urine Microscopic RBC (0-3) per hpf Ur Squamous Epith Cells (None-Few) per lpf Urine Mucus (Few) Ur Culture Indicated? (NO) Urine Opiates Screen Positive H (Yyffvi=097) ng/mL Ur Barbiturates Screen Negative (Mwizke=919) ng/mL Ur Phencyclidine Scrn Negative (Cutoff=25) ng/mL Ur Amphetamines Screen Negative (Dyhzor=8899) ng/mL U Benzodiazepines Scrn Positive H (Ifriir=438) ng/mL Urine Cocaine Screen Negative (Cutoff= 300) ng/mL U Marijuana (THC) Screen Negative (Cutoff = 50) ng/mL Ethyl Alcohol Specimen Rejected - Radiology Data Radiology results reviewed: Yes I reviewed the patient's radiology results. Chest X-Ray 07/25/17 19:24 IMPRESSION: More pronounced bilateral pulmonary infiltrates representing worsening compared with the previous evaluation. Pulmonary edema with CHF or infection should be considered. D/ / 07/25/2017 19:40:53 Sudha Farris MD / earpolo Interpreting Provider: Sudha Farris MD Head CT 07/25/17 19:25 IMPRESSION: No acute intracranial abnormality. D/ / Uche Renae MD / Uche Renae MD Interpreting Provider: Uche Renae MD - EKG Data EKG #1 EKG attestation: Yes I reviewed and interpreted this EKG. EKG shows normal: sinus rhythm Rate: normal Rhythm: NSR [place]/QRS: normal T wave inversions noted in: aVR Interpretation: no acute changes, unchanged when compared to prior tracing (date ), nonspecific ST-T wave changes S.B.A.R. - S.B.A.R. Situation: Demographics Background: Presenting Complaint Assessment: Vital Signs, Course and respsone to treatment, Patient/Family Expectation Recommendation: Barrier(s) to disposition, Recommendation based on pending studies, treatments, or consults S.B.A.R. Report Given to: Dr. Gilbert [email or web address] Repor Time: 21:59
[2017-07-25 20:09] LABS: ABG Base Excess 8 mEq/L (-2 to 3); ABG HCO3 35 mEq/L (21-27); ABG Oxygen Saturation 94 % (95-98); ABG PCO2 61 mmHg (35-45); ABG PH 7.37 pH Units (7.32-7.45); ABG PO2 76 mmHg (85-104); ABG TCO2 37 mEq/L (20-26); Blood Gas FiO2 2.5 (1-15=lpm or21-100=%)
[2017-07-25 20:18] LABS: Basophils % 0.3 %; Eosinophils # 0.1 K/mcL (0.0-0.6); Eosinophils % 1.1 %; Hemoglobin 9.9 g/dL (12.9-16.9); Immature Granulocytes % 0.2 % (0-4); Lymphocytes # 0.7 K/mcL (0.6-4.6); Lymphocytes % 10.7 %; Mean Corpuscular HGB Conc 30.9 g/dL (31.6-35.5); Mean Corpuscular Hemoglobin 26.1 pg (28.0-33.3); Mean Corpuscular Volume 84.4 fL (83.0-100.0); Mean Platelet Volume 10.7 fL (9.4-12.4); Monocytes # 0.3 K/mcL (0.0-1.3); Monocytes % 5.3 %; Neutrophils # 5.2 K/mcL (1.6-8.9); Platelet Count 137 K/mcL (140-400); Red Blood Count 3.79 M/mcL (4.19-5.50); Red Cell Distribution Width 13.2 % (11.5-14.5); Segmented Neutrophils % 82.4 %
[2017-07-25 20:28] LABS: Prothrombin Time 10.8 Seconds (9.4-12.1)
[2017-07-25 20:34] LABS: Alanine Aminotransferase 11 Units/L (7-52); Albumin 3.9 g/dL (3.5-5.7); Albumin/Globulin Ratio 1.1 (1.1-2.2); Alkaline Phosphatase 113 Units/L (34-104); Aspartate Amino Transferase 15 Units/L (13-39); BUN/Creatinine Ratio 15 (6-26); Bilirubin,Direct 0.1 mg/dL (0.0-0.2); Bilirubin,Indirect 0.2 mg/dL (0.0-1.2); Bilirubin,Total 0.3 mg/dL (0.3-1.0); Blood Urea Nitrogen 18 mg/dL (8-23); Carbon Dioxide 34 mEq/L (23-29); Chloride 97 mEq/L (98-107); Ethanol < 10 mg/dL (Less than 10); Globulin 3.4 g/dL (2.4-3.5); Glucose 241 mg/dL (70-105); Osmolality,Calculated 290 (280-300); Potassium 4.7 mEq/L (3.5-5.1); Sodium 135 mEq/L (136-145); Total Protein 7.3 g/dL (6.4-8.9); eGFR For African Americans > 60 (> 60); eGFR For Non-African Americans > 60 (> 60)
[2017-07-25 20:42] LABS: Activated Partial Thrombo Time 18.9 Seconds (26.0-36.0)
--- NOTE | 2017-07-25 20:51 | Emergency Department Note ---
Disposition Clinical Impression: Generalized weakness Disposition: Admitted As Inpatient Condition: Fair General Adult HPI - General Chief complaint: ED Altered Mental Status Stated complaint: lethargic Time Seen by Provider: 07/25/17 19:24 Source: patient, EMS Limitations: altered mental status Nursing Notes Reviewed: Yes Vital Signs Reviewed: Yes - History of Present Illness Pain Scale: 3 - Related Data Home Medications Medication Instructions Recorded Confirmed Acetylcysteine 10% 4 ml MC Q6HR PRN 06/10/17 07/25/17 Ascorbic Acid [Vitamin C with Nieves 500 mg PO TID 06/10/17 07/25/17 Hips] Atorvastatin Calcium [Lipitor] 80 mg PO HS 06/10/17 07/25/17 Budesonide/Formoterol 160/4.5 2 puff IH BIDR 06/10/17 07/25/17 [Symbicort 160/4.5] Cholecalciferol (D-3) [Vitamin D] 3,000 unit PO DAILY 06/10/17 07/25/17 Dextrose [Trueplus Glucose] 15 gm PO DAILY MDD hypoglycemia 06/10/17 06/10/17 Ibuprofen [Motrin] 200 mg PO Q4HR PRN 06/10/17 07/25/17 Insulin ASPART [Novolog Flexpen] 10 unit SQ TID 06/10/17 07/25/17 Insulin Glargine,Hum.rec.anlog 17 unit SQ DAILY 06/10/17 07/25/17 [Basaglar Kwikpen U-100] Ipratropium/Albuterol Neb [Duoneb] 3 ml IH Q6HR MDD Shortness of 06/10/17 breath Levothyroxine Sodium [Levo-T] 50 mcg PO DAILY 06/10/17 07/25/17 Lisinopril [Zestril] 2.5 mg PO DAILY 06/10/17 07/25/17 Melatonin [Melatonin] 12 mg PO HS 06/10/17 07/25/17 Metformin HCl [Glucophage] 1,000 mg PO BID 06/10/17 06/10/17 Morphine Sulfate [Arymo ER] 15 mg PO PRN 06/10/17 06/10/17 Omeprazole [PriLOSEC] 20 mg PO DAILY 06/10/17 07/25/17 Prazosin HCl [Minipress] 1 mg PO HS 06/10/17 07/25/17 Sertraline [Zoloft] 200 mg PO DAILY 06/10/17 07/25/17 Tiotropium [Spiriva] 18 mcg IH 0700 06/10/17 07/25/17 Zinc Oxide [Secura Protective] 50 gm TP TID 06/10/17 07/25/17 diazePAM [Valium] 10 mg PO QID PRN 06/10/17 07/25/17 Allergies Allergy/AdvReac Type Severity Reaction Status Date / Time gabapentin AdvReac Unknown Verified 07/25/17 19:21 mirtazapine AdvReac Unknown Verified 07/25/17 19:21 propoxyphene [From Darvon] AdvReac Nausea Verified 07/25/17 19:21 tuberculin, purified protein AdvReac Rash Verified 07/25/17 19:21 deriva [From Tubersol] Constitutional: Denies: fever Cardiovascular: Denies: chest pain Respiratory: Denies: cough, dyspnea Gastrointestinal: Denies: abdominal pain, nausea, vomiting Past Medical History - Past Medical History Medical history: Reports: arthritis, COPD, diabetes, GERD, hyperlipidemia, hypertension Surgical history: Reports: other Psychiatric history: Reports: PTSD - Social History Smoking Status: Former smoker Smokeless Tobacco Status: No Alcohol use: Reports: none Drug use: Reports: none Physical Exam - General Limitations: altered mental status General appearance: alert, lethargic Course Vital Signs Temperature 98.1 F 07/25/17 19:21 Pulse Rate 83 07/25/17 19:21 Respiratory Rate 20 07/25/17 19:21 Blood Pressure 167/83 07/25/17 19:21 O2 Sat by Pulse Oximetry 98 07/25/17 19:21 Temperature 98.2 F 07/25/17 23:47 Pulse Rate 69 07/26/17 00:07 Respiratory Rate 16 07/25/17 23:47 Blood Pressure 145/79 07/26/17 00:07 O2 Sat by Pulse Oximetry 98 07/25/17 23:47 Oxygen Delivery Oxygen Delivery Nasal Cannula Medical Decision Making - Lab Data Result diagrams: 07/25/17 20:00 07/25/17 20:00 Lab Results 07/25/17 07/25/17 07/25/17 Range/Units 19:30 19:30 19:30 WBC (4.3-11.1) K/mcL RBC (4.19-5.50) M/mcL Hgb (12.9-16.9) g/dL Hct (37.5-50.1) % MCV (83.0-100.0) fL MCH (28.0-33.3) pg MCHC (31.6-35.5) g/dL RDW (11.5-14.5) % Plt Count (140-400) K/mcL MPV (9.4-12.4) fL Immature Gran % (0-4) % Seg Neutrophils % % Lymphocytes % % Monocytes % % Eosinophils % % Basophils % % Neutrophils # (1.6-8.9) K/mcL Lymphocytes # (0.6-4.6) K/mcL Monocytes # (0.0-1.3) K/mcL Eosinophils # (0.0-0.6) K/mcL Basophils # (0.0-0.2) K/mcL PT (9.4-12.1) Seconds INR APTT (26.0-36.0) Seconds Sample Site ABG pH (7.32-7.45) pH Units ABG pCO2 (35-45) mmHg ABG pO2 (85-104) mmHg ABG HCO3 (21-27) mEq/L ABG Total CO2 (20-26) mEq/L ABG O2 Saturation (95-98) % ABG Base Excess (-2 to 3) mEq/L Marlon Test O2 Delivery Device Inspired O2 (1-15=lpm [id number]=%) Sodium Cancelled Potassium Cancelled Chloride Cancelled Carbon Dioxide Cancelled BUN Cancelled Creatinine Cancelled Est GFR ( Amer) Cancelled Est GFR (Non-Af Amer) Cancelled BUN/Creatinine Ratio Cancelled Glucose Cancelled Calculated Osmolality Cancelled Lactic Acid (0.5-2.2) mmol/L Calcium Cancelled Total Bilirubin Cancelled Direct Bilirubin Cancelled Indirect Bilirubin Cancelled AST Cancelled ALT Cancelled Alkaline Phosphatase Cancelled Troponin I < 0.03 (< 0.04) ng/mL B-Natriuretic Peptide (Less than 100) pg/mL Serum Total Protein Cancelled Albumin Cancelled Globulin Cancelled Albumin/Globulin Ratio Cancelled Urine Color (Yellow) Urine Clarity (Clear) Urine pH (5.0-8.0) pH Units Ur Specific [place] (1.010-1.025) Urine Protein (Neg-Trace) mg/dL Urine Glucose (UA) (Normal) mg/dL Urine Ketones (Negative) mg/dL Urine Blood (Negative) Urine Nitrite (Negative) Urine Bilirubin (Negative) Urine Urobilinogen (Normal) mg/dL Ur Leukocyte Esterase (Negative) Urine Microscopic RBC (0-3) per hpf Ur Squamous Epith Cells (None-Few) per lpf Urine Mucus (Few) Ur Culture Indicated? (NO) Urine Opiates Screen (Mdsgsh=109) ng/mL Ur Barbiturates Screen (Ifjrpr=940) ng/mL Ur Phencyclidine Scrn (Cutoff=25) ng/mL Ur Amphetamines Screen (Gkmlyp=5229) ng/mL U Benzodiazepines Scrn (Hnvlrp=343) ng/mL Urine Cocaine Screen (Cutoff= 300) ng/mL U Marijuana (THC) Screen (Cutoff = 50) ng/mL Ethyl Alcohol Cancelled Specimen Rejected Clotted Hemolyzed 07/25/17 07/25/17 07/25/17 Range/Units 20:00 20:00 20:00 WBC 6.3 (4.3-11.1) K/mcL RBC 3.79 L (4.19-5.50) M/mcL Hgb 9.9 L (12.9-16.9) g/dL Hct 32.0 L (37.5-50.1) % MCV 84.4 (83.0-100.0) fL MCH 26.1 L (28.0-33.3) pg MCHC 30.9 L (31.6-35.5) g/dL RDW 13.2 (11.5-14.5) % Plt Count 137 L (140-400) K/mcL MPV 10.7 (9.4-12.4) fL Immature Gran % 0.2 (0-4) % Seg Neutrophils % 82.4 % Lymphocytes % 10.7 % Monocytes % 5.3 % Eosinophils % 1.1 % Basophils % 0.3 % Neutrophils # 5.2 (1.6-8.9) K/mcL Lymphocytes # 0.7 (0.6-4.6) K/mcL Monocytes # 0.3 (0.0-1.3) K/mcL Eosinophils # 0.1 (0.0-0.6) K/mcL Basophils # 0.0 (0.0-0.2) K/mcL PT 10.8 (9.4-12.1) Seconds INR 1.0 APTT 18.9 L (26.0-36.0) Seconds Sample Site ABG pH (7.32-7.45) pH Units ABG pCO2 (35-45) mmHg ABG pO2 (85-104) mmHg ABG HCO3 (21-27) mEq/L ABG Total CO2 (20-26) mEq/L ABG O2 Saturation (95-98) % ABG Base Excess (-2 to 3) mEq/L Marlon Test O2 Delivery Device Inspired O2 (1-15=lpm [id number]=%) Sodium Potassium Chloride Carbon Dioxide BUN Creatinine Est GFR ( Amer) Est GFR (Non-Af Amer) BUN/Creatinine Ratio Glucose Calculated Osmolality Lactic Acid 1.4 (0.5-2.2) mmol/L Calcium Total Bilirubin Direct Bilirubin Indirect Bilirubin AST ALT Alkaline Phosphatase Troponin I (< 0.04) ng/mL B-Natriuretic Peptide (Less than 100) pg/mL Serum Total Protein Albumin Globulin Albumin/Globulin Ratio Urine Color (Yellow) Urine Clarity (Clear) Urine pH (5.0-8.0) pH Units Ur Specific [place] (1.010-1.025) Urine Protein (Neg-Trace) mg/dL Urine Glucose (UA) (Normal) mg/dL Urine Ketones (Negative) mg/dL Urine Blood (Negative) Urine Nitrite (Negative) Urine Bilirubin (Negative) Urine Urobilinogen (Normal) mg/dL Ur Leukocyte Esterase (Negative) Urine Microscopic RBC (0-3) per hpf Ur Squamous Epith Cells (None-Few) per lpf Urine Mucus (Few) Ur Culture Indicated? (NO) Urine Opiates Screen (Uurpkt=645) ng/mL Ur Barbiturates Screen (Nfeqod=800) ng/mL Ur Phencyclidine Scrn (Cutoff=25) ng/mL Ur Amphetamines Screen (Nxbylo=6113) ng/mL U Benzodiazepines Scrn (Vrrwyw=322) ng/mL Urine Cocaine Screen (Cutoff= 300) ng/mL U Marijuana (THC) Screen (Cutoff = 50) ng/mL Ethyl Alcohol Specimen Rejected 07/25/17 07/25/17 07/25/17 Range/Units 20:00 20:05 21:00 WBC (4.3-11.1) K/mcL RBC (4.19-5.50) M/mcL Hgb (12.9-16.9) g/dL Hct (37.5-50.1) % MCV (83.0-100.0) fL MCH (28.0-33.3) pg MCHC (31.6-35.5) g/dL RDW (11.5-14.5) % Plt Count (140-400) K/mcL MPV (9.4-12.4) fL Immature Gran % (0-4) % Seg Neutrophils % % Lymphocytes % % Monocytes % % Eosinophils % % Basophils % % Neutrophils # (1.6-8.9) K/mcL Lymphocytes # (0.6-4.6) K/mcL Monocytes # (0.0-1.3) K/mcL Eosinophils # (0.0-0.6) K/mcL Basophils # (0.0-0.2) K/mcL PT (9.4-12.1) Seconds INR APTT (26.0-36.0) Seconds Sample Site L Brach ABG pH 7.37 (7.32-7.45) pH Units ABG pCO2 61 H (35-45) mmHg ABG pO2 76 L (85-104) mmHg ABG HCO3 35 H (21-27) mEq/L ABG Total CO2 37 H (20-26) mEq/L ABG O2 Saturation 94 L (95-98) % ABG Base Excess 8 H (-2 to 3) mEq/L Marlon Test N/A O2 Delivery Device Cannula Inspired O2 2.5 (1-15=lpm [id number]=%) Sodium 135 L Potassium 4.7 Chloride 97 L Carbon Dioxide 34 H BUN 18 Creatinine 1.19 Est GFR ( Amer) > 60 Est GFR (Non-Af Amer) > 60 BUN/Creatinine Ratio 15 Glucose 241 H Calculated Osmolality 290 Lactic Acid (0.5-2.2) mmol/L Calcium 9.0 Total Bilirubin 0.3 Direct Bilirubin 0.1 Indirect Bilirubin 0.2 AST 15 ALT 11 Alkaline Phosphatase 113 H Troponin I (< 0.04) ng/mL B-Natriuretic Peptide (Less than 100) pg/mL Serum Total Protein 7.3 Albumin 3.9 Globulin 3.4 Albumin/Globulin Ratio 1.1 Urine Color Yellow (Yellow) Urine Clarity Clear (Clear) Urine pH 6.0 (5.0-8.0) pH Units Ur Specific [place] 1.025 (1.010-1.025) Urine Protein 30 H (Neg-Trace) mg/dL Urine Glucose (UA) 100 H (Normal) mg/dL Urine Ketones Negative (Negative) mg/dL Urine Blood Negative (Negative) Urine Nitrite Negative (Negative) Urine Bilirubin Negative (Negative) Urine Urobilinogen Normal (Normal) mg/dL Ur Leukocyte Esterase Negative (Negative) Urine Microscopic RBC 0-3 (0-3) per hpf Ur Squamous Epith Cells Few (None-Few) per lpf Urine Mucus Few (Few) Ur Culture Indicated? NO (NO) Urine Opiates Screen (Fdxqmm=001) ng/mL Ur Barbiturates Screen (Irdsvi=743) ng/mL Ur Phencyclidine Scrn (Cutoff=25) ng/mL Ur Amphetamines Screen (Sagetg=4092) ng/mL U Benzodiazepines Scrn (Nsceke=020) ng/mL Urine Cocaine Screen (Cutoff= 300) ng/mL U Marijuana (THC) Screen (Cutoff = 50) ng/mL Ethyl Alcohol < 10 Specimen Rejected 07/25/17 07/25/17 Range/Units 21:00 21:46 WBC (4.3-11.1) K/mcL RBC (4.19-5.50) M/mcL Hgb (12.9-16.9) g/dL Hct (37.5-50.1) % MCV (83.0-100.0) fL MCH (28.0-33.3) pg MCHC (31.6-35.5) g/dL RDW (11.5-14.5) % Plt Count (140-400) K/mcL MPV (9.4-12.4) fL Immature Gran % (0-4) % Seg Neutrophils % % Lymphocytes % % Monocytes % % Eosinophils % % Basophils % % Neutrophils # (1.6-8.9) K/mcL Lymphocytes # (0.6-4.6) K/mcL Monocytes # (0.0-1.3) K/mcL Eosinophils # (0.0-0.6) K/mcL Basophils # (0.0-0.2) K/mcL PT (9.4-12.1) Seconds INR APTT (26.0-36.0) Seconds Sample Site ABG pH (7.32-7.45) pH Units ABG pCO2 (35-45) mmHg ABG pO2 (85-104) mmHg ABG HCO3 (21-27) mEq/L ABG Total CO2 (20-26) mEq/L ABG O2 Saturation (95-98) % ABG Base Excess (-2 to 3) mEq/L Marlon Test O2 Delivery Device Inspired O2 (1-15=lpm [id number]=%) Sodium Potassium Chloride Carbon Dioxide BUN Creatinine Est GFR ( Amer) Est GFR (Non-Af Amer) BUN/Creatinine Ratio Glucose Calculated Osmolality Lactic Acid (0.5-2.2) mmol/L Calcium Total Bilirubin Direct Bilirubin Indirect Bilirubin AST ALT Alkaline Phosphatase Troponin I (< 0.04) ng/mL B-Natriuretic Peptide 49 (Less than 100) pg/mL Serum Total Protein Albumin Globulin Albumin/Globulin Ratio Urine Color (Yellow) Urine Clarity (Clear) Urine pH (5.0-8.0) pH Units Ur Specific [place] (1.010-1.025) Urine Protein (Neg-Trace) mg/dL Urine Glucose (UA) (Normal) mg/dL Urine Ketones (Negative) mg/dL Urine Blood (Negative) Urine Nitrite (Negative) Urine Bilirubin (Negative) Urine Urobilinogen (Normal) mg/dL Ur Leukocyte Esterase (Negative) Urine Microscopic RBC (0-3) per hpf Ur Squamous Epith Cells (None-Few) per lpf Urine Mucus (Few) Ur Culture Indicated? (NO) Urine Opiates Screen Positive H (Vsjwdd=704) ng/mL Ur Barbiturates Screen Negative (Bfshai=111) ng/mL Ur Phencyclidine Scrn Negative (Cutoff=25) ng/mL Ur Amphetamines Screen Negative (Fmngzz=7073) ng/mL U Benzodiazepines Scrn Positive H (Oipsoh=198) ng/mL Urine Cocaine Screen Negative (Cutoff= 300) ng/mL U Marijuana (THC) Screen Negative (Cutoff = 50) ng/mL Ethyl Alcohol Specimen Rejected Attestation Statement - Attestation Attestation: I, Kulwant Chaparro MD, personally evaluated this patient and discussed their management with the resident physician. I reviewed the resident's note and agree with the documented findings, medical decision making, and plan of care. 71-year-old male transferred here from the [place] urgent care for further evaluation of generalized weakness. reports that over the past week he has been more weak than usual and more unsteady on his feet. She reports she has frequent falls which is not new. He uses a walker at home but over the past week has required assistance even with the walker. She states that today she was more confused than usual and weaker than usual. He has not been ill otherwise. No complaints of chest pain or other pain other than his chronic back pain for which he has an implanted morphine pain pump. He was on oxycodone for pain however this was switched 10 days ago to hydrocodone and reports that he only took 3 of the hydrocodone tablets and stopped taking them because they made him sick at his stomach. Since then he has not been on any oral pain medication for his chronic back pain. There has been no cough or increased shortness of breath. No fever. No vomiting or diarrhea. No trouble with urination or bowel movements. On examination patient is a well-developed obese elderly male in no acute distress. He is alert and seems confused and disoriented. No cyanosis or diaphoresis. Breath sounds are decreased but equal bilaterally. No rales or wheezes noted. Heart regular rate and rhythm. Abdomen soft and nontender with present bowel sounds. Labs reviewed. EKG shows normal sinus rhythm with ventricular rate of 82. No acute ST segment elevations or depressions. No ectopy. Head CT negative. Chest x-ray shows: More pronounced bilateral pulmonary infiltrates representing worsening compared with the previous evaluation. Pulmonary edema with CHF or infection should be considered. 22:55 Patient agitated and stating he wants to sign out AMA and go home. I advised patient I do not feel he is competent to sign himself out AMA at this point in time. He has been confused and disoriented. I discussed with and she states it is his decision and she will not signed him out. I advised him that I feel he is not competent and needs to stay here for further evaluation of his medical condition.
[2017-07-25 21:26] LABS: Bilirubin,Urine Negative (Negative); Blood,Urine Negative (Negative); Clarity,Urine Clear (Clear); Color,Urine Yellow (Yellow); Glucose,Urine (UA) 100 mg/dL (Normal); Ketones,Urine Negative (Negative); Leukocyte Esterase,Urine Negative (Negative); Nitrite,Urine Negative (Negative); Protein,Urine 30 mg/dL (Neg-Trace); Specific Gravity,Urine 1.025 (1.010-1.025); Urobilinogen,Urine Normal (Normal)
[2017-07-25 21:35] LABS: Squamous Epithelial Cell,Urine Few per lpf (None-Few)
[2017-07-25 21:36] LABS: Amphetamine Screen,Urine Negative ng/mL (Cutoff=1000); Barbiturate Screen,Urine Negative ng/mL (Cutoff=200); Benzodiazepines Screen,Urine Positive ng/mL (Cutoff=200); Cannabinoid Screen,Urine Negative ng/mL (Cutoff = 50); Cocaine Screen,Urine Negative ng/mL (Cutoff= 300); Mucus,Urine Few (Few); Opiate Screen,Urine Positive ng/mL (Cutoff=300); Phencyclidine Screen,Urine Negative ng/mL (Cutoff=25); RBC,Urine 0-3 per hpf (0-3)
[2017-07-25] MEDS ORDERED: Isovue-370 500 ML INFUS..BTL IV ONE (21:45)
[2017-07-25] MEDS ORDERED: diazePAM 10 MG TABLET PO ONE (22:58)
[2017-07-25] MEDS ORDERED: D5% in Water 1,000 ML IVC PRN (23:31)
[2017-07-25] MEDS ORDERED: Dextrose Gel 15 GM/37.5 ML TUBE PO PRN ×2 (23:31)
[2017-07-25] MEDS ORDERED: *HR* Dextrose 50 % in Water (Syg) 50 ML SYRINGE IVP PRN (23:31)
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
[2017-07-25] MEDS ORDERED: Acetaminophen 325 MG TABLET PO PRN (23:33)
[2017-07-25] MEDS ORDERED: Naloxone 0.4 MG/ML INJ IVP PRN (23:33)
[2017-07-26] MEDS ORDERED: diazePAM 10 MG TABLET PO PRN (00:01)
[2017-07-26] MEDS ORDERED: Acetylcysteine 10% 2 ML INHSOL IH PRN (00:01)
[2017-07-26 06:04] LABS: Basophils % 0.2 %; Eosinophils # 0.1 K/mcL (0.0-0.6); Eosinophils % 2.3 %; Hematocrit 28.3 % (37.5-50.1); Immature Granulocytes % 0.4 % (0-4); Lymphocytes # 0.9 K/mcL (0.6-4.6); Lymphocytes % 16.5 %; Mean Corpuscular HGB Conc 31.8 g/dL (31.6-35.5); Mean Corpuscular Hemoglobin 26.3 pg (28.0-33.3); Mean Corpuscular Volume 82.7 fL (83.0-100.0); Mean Platelet Volume 10.2 fL (9.4-12.4); Monocytes # 0.3 K/mcL (0.0-1.3); Monocytes % 5.3 %; Neutrophils # 4.3 K/mcL (1.6-8.9); Nucleated Red Blood Cells 0.4 /100 WBC (0); Platelet Count 118 K/mcL (140-400); Red Blood Count 3.42 M/mcL (4.19-5.50); Red Cell Distribution Width 13.3 % (11.5-14.5); Segmented Neutrophils % 75.3 %
[2017-07-26] MEDS: *HR* Heparin 5,000 UNIT/ML VIAL SQ SCH ×2 (06:16→12:26)
[2017-07-26 06:24] LABS: BUN/Creatinine Ratio 15 (6-26); Blood Urea Nitrogen 16 mg/dL (8-23); Calcium 8.7 mg/dL (8.6-10.3); Carbon Dioxide 33 mEq/L (23-29); Chloride 99 mEq/L (98-107); Glucose 210 mg/dL (70-105); Magnesium 1.5 mg/dL (1.6-2.6); Osmolality,Calculated 289 (280-300); Potassium 4.5 mEq/L (3.5-5.1); Sodium 136 mEq/L (136-145); eGFR For African Americans > 60 (> 60); eGFR For Non-African Americans > 60 (> 60)
[2017-07-26 06:37] LABS: Thyroid Stimulating Hormone 1.276 mcIU/mL (0.340-5.600)
[2017-07-26] MEDS ORDERED: Tiotropium 18 MCG inhalation IH SCH (07:00)
[2017-07-26] MEDS: Insulin LISPRO 300 UNITS/3 ML VIAL SQ SCH ×2 (08:17→11:45)
[2017-07-26] MEDS ORDERED: Ondansetron ODT 4 MG TAB.RAPDIS SL ONE (08:58)
[2017-07-26] MEDS ORDERED: NON-FORMULARY MEDICATION 1 EACH EACH (Insulin Glargine,Hum.Rec.Anlog [Basaglar Kwikpen U-1 SQ SCH (09:00)
[2017-07-26] MEDS ORDERED: Cholecalciferol (D-3) 1,000 UNIT TABLET PO SCH (09:00)
[2017-07-26] MEDS ORDERED: Ascorbic Acid 500 MG TABLET PO SCH (09:00)
[2017-07-26] MEDS ORDERED: ZINC OXIDE TP SCH (09:00)
[2017-07-26] MEDS ORDERED: Insulin DETEMIR 100 UNIT/ML X5UNITS SQ SCH (09:00)
[2017-07-26] MEDS ORDERED: Budesonide/Formoterol 160/4.5 MDI IH SCH (10:00)
--- NOTE | 2017-07-26 11:38 | Discharge Summary ---
- NOTES TO OUTPATIENT PROVIDER Notes to Outpatient Provider: Patient was admitted overnight for generalized weakness for the last few months. She was resistant to being admitted, however his wanted him to stay. He attempted to sign out AMA at midnight, again insisted that he stay. Patient already has physical therapy lined up for home after discharge, according to the will start this week. Patient states that he takes an iron supplement, it is not listed on his home medication list, hemoglobin appears to be his baseline and remains anemic. Patient reports that he sees primary care tomorrow, as the pain management appointment on Thursday. Date of Encounter: 07/26/17 Time of Encounter: 09:20 - Discharge Diagnosis (1) Sarcoidosis Priority: Secondary Status: Chronic Assessment and Plan: Chronic. Continue home inhalers. Chest X-Ray 07/25/17 19:24 IMPRESSION: More pronounced bilateral pulmonary infiltrates representing worsening compared with the previous evaluation. Pulmonary edema with CHF or infection should be considered. D/ / 07/25/2017 19:40:53 Sudha Farris MD / juwan Interpreting Provider: Sudha Farris MD Chest CT 07/25/17 21:57 IMPRESSION: 1. Chronic versus recurrent interstitial and reticulonodular densities and areas of consolidative fibrosis at the lung bases,with small volume bilateral pleural effusion. Findings are in keeping with history of known sarcoidosis and are not appreciably changed. Superimposed infectious process cannot be excluded. 2. Stable mediastinal lymphadenopathy, in keeping with history of sarcoidosis. 3. Small hiatal hernia. 4. Calcific atherosclerosis of aorta and coronary arteries. 5. Mild cardiomegaly. D/ / 07/25/2017 22:34:08 Kaz Tello / juwan Interpreting Provider: Kaz Tello (2) DVT prophylaxis Priority: Secondary Status: Acute Assessment and Plan: Heparin SQ BID (3) Hypertension Priority: Secondary Status: Chronic Assessment and Plan: Hypertension is chronic. STable. Continue home medications. Qualifiers: Hypertension type: essential hypertension Qualified Code(s): I10 - Essential (primary) hypertension (4) Back pain Priority: Secondary Status: Chronic Assessment and Plan: Continue with pain meds. Patient is on a morphine pump. Recent follow up with [facility] pain clinic, unremarkable imaging. Pt states that he sees pain management at [facility] on Thursday. Qualifiers: Back pain location: thoracic back pain Chronicity: unspecified Back pain laterality: midline Qualified Code(s): M54.6 - Pain in thoracic spine (5) Diabetes mellitus Priority: Secondary Status: Chronic Assessment and Plan: type II. Continue home medications. Qualifiers: Diabetes mellitus type: type 2 Diabetes mellitus mcfp insulin use: unspecified mcfp insulin use status Diabetes mellitus complication status : with kidney complications Diabetes mellitus complication detail: with chronic kidney disease Chronic kidney disease stage: stage 3 (moderate) Qualified Code(s): E11.22 - Type 2 diabetes mellitus with diabetic chronic kidney disease; N18.3 - Chronic kidney disease, stage 3 (moderate) (6) Anemia Priority: Secondary Status: Chronic Assessment and Plan: Patient's iron studies were checked back in March and seems to be consistent with iron deficiency anemia. Pt states that he takes iron supplements at home, however, it is not on his home medication list. Anemia is chronic and 9.0 appears to be his baseline. Pt states that he has PCP appointment tomorrow and will talk about Ferrous Sulfate then. Anemia could be contributing to his weakness. Qualifiers: Anemia type: unspecified type Qualified Code(s): D64.9 - Anemia, unspecified (7) CKD (chronic kidney disease) Priority: Secondary Status: Chronic Assessment and Plan: CKD stage III. Stable. Labs WNL GFR> 60, Sr Cr 1.04 Follow with PCP as scheduled tomorrow, avoid nephrotoxins. Qualifiers: Chronic kidney disease stage: stage 3 (moderate) Qualified Code(s): N18.3 - Chronic kidney disease, stage 3 (moderate) (8) Generalized weakness Priority: Primary Status: Acute Assessment and Plan: No clear etiology. Could be multifactorial including anemia, chronic back pain , versus physical deconditioning due to to anemia and chronic back pain. Labs appeart to be stable and WNL, orthostatics negative. TSH WNL. Anemia appears to be at his baseline, there is some question about whether or not he takes FeSo4. There was a worry about possible pneumonia upon presentation and a CT chest failed to show an obvious infiltrate, underlying early infection should be considered. Pt has no leukocytosis and is afebrile and normotensive. Supportive care for now. Pt is insistent that he is going home. He states he is not staying all day today and will not stay overnight again. Patient ambulated in the hallways with the assistance of a wheelchair and a staff member and did well, though he was tired at the end of the walk. reports that patient has physical therapy that we will start at home this week. Due to his stable labs, vital signs, and pending physical therapy as well as primary care appointment tomorrow , I feel it would be okay for patient to go home and follow up tomorrow as scheduled. Hospital course: Mr. Hare is a 71 year old male with past medical history of type 2 diabetes, chronic anemia iron deficiency, chronic kidney disease stage III, congestive heart by mouth year, COPD, sarcoidosis, hypertension, and hyperlipidemia. Patient was admitted last night for several month history of weakness. He was upset that he was admitted, during the night and this morning he was requesting to sign out AGAINST MEDICAL ADVICE. His encouraged him to stay times. There is no new, obvious reason for his weakness. Likely multifactorial including anemia, deconditioning, and sarcoidosis. Patient already has physical therapy scheduled to start this week per the , he also has a primary care appointment tomorrow. His vital signs are stable and within normal limits, patient with reported see KD stage III, labs are within normal limits. Patient with chronic iron deficiency anemia, hemoglobin is 9 today which is at his baseline. He reports that he takes iron supplements but they are not listed on his home medication list. Patient follows with primary care tomorrow and also has a pain management appointment on Thursday. Hyponatremia present on admission has resolved. Patient was able to ambulate through the department with the assistance of staff while holding on to a wheelchair, though he was tired, he was able to ambulate and will benefit from physical therapy later this week. Patient is adamant that he is leaving "with or without your blessing." Patient is stable for discharge. - Time Spent with Patient Total time spent providing and/or coordinating discharge services: - Discharge Medications Home Medications: Acetylcysteine 10% 4 ml MC Q6HR PRN 06/10/17 [History] Ascorbic Acid [Vitamin C with Nieves Hips] 500 mg PO TID 06/10/17 [History] Atorvastatin Calcium [Lipitor] 80 mg PO HS 06/10/17 [History] Budesonide/Formoterol 160/4.5 [Symbicort 160/4.5] 2 puff IH BIDR 06/10/17 [ History] Cholecalciferol (D-3) [Vitamin D] 3,000 unit PO DAILY 06/10/17 [History] Dextrose [Trueplus Glucose] 15 gm PO DAILY MDD hypoglycemia 06/10/17 [History] Ibuprofen [Motrin] 200 mg PO Q4HR PRN 06/10/17 [History] Insulin ASPART [Novolog Flexpen] 10 unit SQ TID 06/10/17 [History] Insulin Glargine,Hum.rec.anlog [Basaglar Kwikpen U-100] 17 unit SQ DAILY [History] Ipratropium/Albuterol Neb [Duoneb] 3 ml IH Q6HR MDD Shortness of breath [History] Levothyroxine Sodium [Levo-T] 50 mcg PO DAILY 06/10/17 [History] Lisinopril [Zestril] 2.5 mg PO DAILY 06/10/17 [History] Melatonin 12 mg PO HS 06/10/17 [History] Metformin HCl [Glucophage] 1,000 mg PO BID 06/10/17 [History] Morphine Sulfate [Arymo ER] 15 mg PO PRN 06/10/17 [History] Omeprazole [PriLOSEC] 20 mg PO DAILY 06/10/17 [History] Prazosin HCl [Minipress] 1 mg PO HS 06/10/17 [History] Sertraline [Zoloft] 200 mg PO DAILY 06/10/17 [History] Tiotropium [Spiriva] 18 mcg IH 0700 06/10/17 [History] Zinc Oxide [Secura Protective] 50 gm TP TID 06/10/17 [History] diazePAM [Valium] 10 mg PO QID PRN 06/10/17 [History] Allergies/Adverse Reactions: 3 Allergy/AdvReac Type Severity Reaction Status Date / Time gabapentin AdvReac Unknown Verified 07/25/17 19:21 mirtazapine AdvReac Unknown Verified 07/25/17 19:21 propoxyphene [From Darvon] AdvReac Nausea Verified 07/25/17 19:21 tuberculin, purified protein AdvReac Rash Verified 07/25/17 19:21 deriva [From Tubersol] Date of admission: 07/25/17 23:31 Primary care physician: Bryanna Ortega MD Consults: 07/25/17 23:32 Consult to Occupational Therapy [CONS] Routine Comment: Evaluate, develop and implement POC Reason for Consult: therapy/placement needs Does patient have active BEDREST order?: No Is patient medically & hemodynamically stable?: Yes Consult to Physical Therapy [CONS] Routine Comment: Evaluate, develop and implement POC Reason for Consult: PT eval Does patient have active BEDREST order?: No Is patient medically & hemodynamically stable?: Yes Discharging clinician: Nereida Mccord Anticipated date of discharge: 07/26/17 - Constitutional Vitals: Temp Pulse Resp BP Pulse Ox 97.9 F 59 17 134/62 97 07/26/17 07:31 07/26/17 07:31 07/26/17 07:31 07/26/17 07:31 07/26/17 07:31 General appearance: Present: cooperative, A&O X 3, pleasant, no acute distress, answers questions appropriately - Head Head exam: Present: atraumatic, normal inspection, normocephalic - Eye Eye exam: Present: normal appearance, conjuntiva pink, sclera anicteric - Neck Neck exam general surgery: Present: supple, trachea midline. Absent: lymphadenopathy, tenderness - Respiratory Respiratory exam: Present: decreased breath sounds, CTAB. Absent: accessory muscle use, chest wall tenderness, rales, respiratory distress, rhonchi, wheezes - Cardiovascular Cardiovascular exam: Present: RRR, +S1, +S2. Absent: diastolic murmur, gallop, rubs, systolic murmur - GI/Abdominal GI/Abdominal exam: Present: normal bowel sounds, soft. Absent: distended, hepatomegaly, tenderness - Extremities Exam Extremities exam: Present: normal capillary refill, normal inspection, warm, radial pulses palpable and symmetrical. Absent: calf tenderness, cyanotic, pedal edema, tenderness - Neurological Exam Neurological exam: Present: alert, oriented X3, no focal deficits. Absent: facial droop, speech deficit - Skin Skin exam: Present: dry, intact, normal color, warm. Absent: rash - Patient Status Disposition: Home, Self-Care Condition: Good Functional capacity at discharge: uses cane/walker Overall status at discharge: patient is progressing back to baseline - Discharge Instructions Follow Up With: Bryanna Ortega MD [Primary Care Provider] - Additional Instructions: Please follow up with your PCP as scheduled tomorrow. Start PT/OT this week. Return to the ER as needed for any other problems or concerns or if your symptoms return or worsen. Take your medications as directed Return to your normal diet and activities as tolerated. - Diet and Activity Activity: increase activity as tolerated Diet: advance to your usual diet
[2017-07-26 11:42] VITALS: BP 167/74
[2017-07-26] MEDS ORDERED: Melatonin 3 MG TABLET PO SCH (21:00)
[2017-07-26] MEDS ORDERED: Insulin LISPRO 300 UNITS/3 ML VIAL SQ SCH (21:00)
--- NOTE | 2017-07-27 09:50 | Electrocardiograph Report ---
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
== END 2017-07-26 13:32 | disposition home or self-care (01) | DRG 811 ==
LOC: 3BNU 19:19 → EMEROO 19:19 → 3BNU 23:23
PROVIDERS: ADMIT Internal Medicine; ATTEND Internal Medicine

== ENCOUNTER 2017-08-18 14:43 | Observation (INO) ==
--- NOTE | 2017-08-18 15:15 | Emergency Department Note ---
Disposition Clinical Impression: Hyperglycemia Chest pain Qualifiers: Chest pain type: unspecified Qualified Code(s): R07.9 - Chest pain, unspecified Anemia Qualifiers: Anemia type: unspecified type Qualified Code(s): D64.9 - Anemia, unspecified Disposition: Admitted As Inpatient Condition: Fair Time of Disposition: 16:50 General Adult HPI - General Chief complaint: ED Chest Pain Stated complaint: "CP sent from office" Time Seen by Provider: 08/18/17 14:59 Source: patient, family Limitations: no limitations Nursing Notes Reviewed: Yes Vital Signs Reviewed: Yes - History of Present Illness HPI Narrative: Patient is a 71-year-old male that presents the emergency department with chest pain. Family member states that he was at Dr. Patrick's office to have a catheter placed due to urinary retention and started having chest pain. Patient states that is located in the center of his chest and radiates to his right shoulder. Family member states that he is always somewhat sleepy due to having PTSD and not sleeping well at night and is currently at his cece line for alertness. Patient states that he has been a little bit short of breath and has felt sick but has not vomited. Family member states that he has never had a previous cardiac event, no cardiac catheterizations or stents placed. Patient does wear 2-3 L of oxygen at home per family member. Pain Scale: 8 - Related Data Home Medications Medication Instructions Recorded Confirmed Acetylcysteine 10% 4 ml MC Q6HR PRN 06/10/17 08/18/17 Ascorbic Acid [Vitamin C with Nieves 500 mg PO TID 06/10/17 08/18/17 Hips] Budesonide/Formoterol 160/4.5 2 puff IH BIDR 06/10/17 08/18/17 [Symbicort 160/4.5] Cholecalciferol (D-3) [Vitamin D] 3,000 unit PO DAILY 06/10/17 08/18/17 Dextrose [Trueplus Glucose] 15 gm PO DAILY MDD hypoglycemia 06/10/17 08/18/17 Ibuprofen [Motrin] 200 mg PO Q4HR PRN 06/10/17 08/18/17 Insulin ASPART [Novolog Flexpen] 10 unit SQ QAM 06/10/17 08/18/17 Ipratropium/Albuterol Neb [Duoneb] 3 ml IH Q6HR MDD Shortness of 06/10/17 breath Levothyroxine Sodium [Levo-T] 50 mcg PO DAILY 06/10/17 08/18/17 Lisinopril [Zestril] 2.5 mg PO DAILY 06/10/17 08/18/17 Melatonin 12 mg PO HS 06/10/17 08/18/17 Metformin HCl [Glucophage] 1,000 mg PO BID 06/10/17 08/18/17 Omeprazole [PriLOSEC] 20 mg PO DAILY 06/10/17 08/18/17 Prazosin HCl [Minipress] 1 mg PO HS 06/10/17 08/18/17 Sertraline [Zoloft] 200 mg PO DAILY 06/10/17 08/18/17 Tiotropium [Spiriva] 18 mcg IH 0700 06/10/17 08/18/17 Zinc Oxide [Secura Protective] 50 gm TP TID 06/10/17 08/18/17 diazePAM [Valium] 10 mg PO QID PRN 06/10/17 08/18/17 Albuterol Neb [Proventil Neb] 2.5 mg IH Q6H PRN 08/18/17 08/18/17 Atorvastatin [Lipitor] 40 mg PO HS 08/18/17 08/18/17 Insulin Glargine,Hum.rec.anlog 17 unit SQ DAILY 08/18/17 08/18/17 [Lantus Solostar] Morphine Sulfate/Pf [Morphine 1 each IT AD 08/18/17 08/18/17 IntraThecdal Pump] OxyCODONE/APAP 5/325 [Percocet 1 tab PO Q12H 08/18/17 08/18/17 5/325 MG] Allergies Allergy/AdvReac Type Severity Reaction Status Date / Time gabapentin AdvReac Unknown Verified 08/18/17 14:52 mirtazapine AdvReac Unknown Verified 08/18/17 14:52 propoxyphene [From Darvon] AdvReac Nausea Verified 08/18/17 14:52 tuberculin, purified protein AdvReac Rash Verified 08/18/17 14:52 deriva [From Tubersol] All systems ED: reviewed and negative except as stated. Cardiovascular: Reports: chest pain Respiratory: Reports: dyspnea Gastrointestinal: Reports: nausea Past Medical History - Past Medical History Medical history: Reports: arthritis, COPD, diabetes, GERD, hyperlipidemia, hypertension Surgical history: Reports: other Psychiatric history: Reports: anxiety, depression, PTSD - Social History Smoking Status: Former smoker Smokeless Tobacco Status: No Alcohol use: Reports: none Drug use: Reports: none Physical Exam - General Limitations: physical limitation General appearance: in no apparent distress, other (Patient is sleepy) - Eye Eye exam: Present: normal appearance, EOMI - Neck Neck exam: Present: normal inspection, full ROM, trachea midline - Respiratory Respiratory exam: Present: normal lung sounds bilaterally. Absent: respiratory distress, wheezes - Cardiovascular Cardiovascular exam: Present: regular rate, normal rhythm, normal heart sounds, +S1, +S2 - Abdominal Exam Abdominal exam: Present: soft, Non-Tender, normal bowel sounds - Neurological Exam Neurological exam: Present: oriented X3, CN II-XII intact, other (Patient is sleepy) - Psychiatric Psychiatric exam: Present: normal affect, normal mood - Skin Skin exam: Present: warm, dry, intact Course Vital Signs Temperature 97.7 F 08/18/17 14:46 Pulse Rate 63 08/18/17 14:46 Respiratory Rate 15 08/18/17 14:46 Blood Pressure 164/82 08/18/17 14:46 O2 Sat by Pulse Oximetry 97 08/18/17 14:46 Temperature 97.9 F 08/18/17 19:28 Pulse Rate 91 08/18/17 19:28 Respiratory Rate 18 08/18/17 21:14 Blood Pressure 131/70 08/18/17 19:28 O2 Sat by Pulse Oximetry 95 08/18/17 21:14 Oxygen Delivery Oxygen Delivery Nasal Cannula Medical Decision Making - [facility] Narrative Medical decision making narrative: Due to the patient presenting to the emergency Department with chest pain we will obtain a CBC, BMP, troponin chest x-ray and EKG. Patient's troponin was negative. Chest x-ray showed mild right pleural effusion. EKG did not show any ischemic changes. Patient did have some hyperglycemia however he is a diabetic and his states that is not uncommon for him to be this high. She was also found to have an anemia at 9.2 however the patient appears to have chronic anemia. Due to the patient having a heart score 5 at this time and feel that it is important for the patient to be admitted to the hospital for further evaluation and management. I called and spoke with the admitting hospitalist and they have accepted the patient to their service. The patient be admitted to the hospital at this time. - Medical Records Medical records reviewed: Yes I reviewed the patient's medical records. - Lab Data Lab results reviewed: Yes I reviewed the patient's lab results. Result diagrams: 08/18/17 15:27 08/18/17 15:27 Lab Results 08/18/17 08/18/17 08/18/17 Range/Units 14:55 15:27 15:27 WBC 4.3 (4.3-11.1) K/mcL RBC 3.40 L (4.19-5.50) M/mcL Hgb 9.2 L (12.9-16.9) g/dL Hct 29.5 L (37.5-50.1) % MCV 86.8 (83.0-100.0) fL MCH 27.1 L (28.0-33.3) pg MCHC 31.2 L (31.6-35.5) g/dL RDW 13.8 (11.5-14.5) % Plt Count 104 L (140-400) K/mcL MPV 10.4 (9.4-12.4) fL Immature Gran % 0.5 (0-4) % Seg Neutrophils % 66.4 % Lymphocytes % 22.0 % Monocytes % 7.0 % Eosinophils % 3.9 % Basophils % 0.2 % Neutrophils # 2.9 (1.6-8.9) K/mcL Lymphocytes # 1.0 (0.6-4.6) K/mcL Monocytes # 0.3 (0.0-1.3) K/mcL Eosinophils # 0.2 (0.0-0.6) K/mcL Basophils # 0.0 (0.0-0.2) K/mcL PT 11.2 (9.4-12.1) Seconds INR 1.0 APTT 26.8 (26.0-36.0) Seconds Sodium (136-145) mEq/L Potassium (3.5-5.1) mEq/L Chloride (98-107) mEq/L Carbon Dioxide (23-29) mEq/L BUN (8-23) mg/dL Creatinine (0.70-1.30) mg/dL Est GFR ( Amer) (> 60) Est GFR (Non-Af Amer) (> 60) BUN/Creatinine Ratio (6-26) Glucose (70-105) mg/dL POC Glucose 321 H (70-99) mg/dL Calculated Osmolality (280-300) Calcium (8.6-10.3) mg/dL Troponin I (< 0.04) ng/mL 08/18/17 Range/Units 15:27 WBC (4.3-11.1) K/mcL RBC (4.19-5.50) M/mcL Hgb (12.9-16.9) g/dL Hct (37.5-50.1) % MCV (83.0-100.0) fL MCH (28.0-33.3) pg MCHC (31.6-35.5) g/dL RDW (11.5-14.5) % Plt Count (140-400) K/mcL MPV (9.4-12.4) fL Immature Gran % (0-4) % Seg Neutrophils % % Lymphocytes % % Monocytes % % Eosinophils % % Basophils % % Neutrophils # (1.6-8.9) K/mcL Lymphocytes # (0.6-4.6) K/mcL Monocytes # (0.0-1.3) K/mcL Eosinophils # (0.0-0.6) K/mcL Basophils # (0.0-0.2) K/mcL PT (9.4-12.1) Seconds INR APTT (26.0-36.0) Seconds Sodium 136 (136-145) mEq/L Potassium 4.1 (3.5-5.1) mEq/L Chloride 102 (98-107) mEq/L Carbon Dioxide 31 H (23-29) mEq/L BUN 17 (8-23) mg/dL Creatinine 1.18 (0.70-1.30) mg/dL Est GFR ( Amer) > 60 (> 60) Est GFR (Non-Af Amer) > 60 (> 60) BUN/Creatinine Ratio 14 (6-26) Glucose 329 H (70-105) mg/dL POC Glucose (70-99) mg/dL Calculated Osmolality 296 (280-300) Calcium 8.7 (8.6-10.3) mg/dL Troponin I < 0.03 (< 0.04) ng/mL - Radiology Data Radiology results reviewed: Yes I reviewed the patient's radiology results. Chest X-Ray 08/18/17 15:12 IMPRESSION: Persistent widespread parenchymal lung disease, increased in the left lung base. Right pleural effusion suspected D/ / Audi Thao MD / Audi Thao MD Interpreting Provider: Audi Thao MD - EKG Data EKG #1 EKG attestation: Yes I reviewed and interpreted this EKG. EKG results narrative: EKG shows a sinus rhythm at a rate of 66 bpm, CT interval 160, curious duration of 109, QTC of 402 with a normal axis. There are some nonspecific T wave changes. This is compared to previous EKG on 07/25/17 which shows a sinus rhythm with nonspecific T-wave changes at a rate of 82 bpm. No evidence of STEMI and EKG. Attestation Statement - Attestation Attestation: I examined this patient and my medical decision-making was reviewed with the Resident Physician. I agree with the documented findings, disposition and treatment plan as described except to the extent set forth below. Chest pain, multiple risk factors, will admit for acs ro and further evaluation by cardiology.
[2017-08-18 15:48] LABS: Basophils % 0.2 %; Eosinophils # 0.2 K/mcL (0.0-0.6); Eosinophils % 3.9 %; Hematocrit 29.5 % (37.5-50.1); Hemoglobin 9.2 g/dL (12.9-16.9); Immature Granulocytes % 0.5 % (0-4); Mean Corpuscular HGB Conc 31.2 g/dL (31.6-35.5); Mean Corpuscular Hemoglobin 27.1 pg (28.0-33.3); Mean Corpuscular Volume 86.8 fL (83.0-100.0); Mean Platelet Volume 10.4 fL (9.4-12.4); Monocytes # 0.3 K/mcL (0.0-1.3); Neutrophils # 2.9 K/mcL (1.6-8.9); Platelet Count 104 K/mcL (140-400); Red Cell Distribution Width 13.8 % (11.5-14.5); Segmented Neutrophils % 66.4 %
[2017-08-18 16:02] LABS: Prothrombin Time 11.2 Seconds (9.4-12.1)
[2017-08-18 16:05] LABS: Activated Partial Thrombo Time 26.8 Seconds (26.0-36.0)
[2017-08-18 16:11] LABS: BUN/Creatinine Ratio 14 (6-26); Blood Urea Nitrogen 17 mg/dL (8-23); Calcium 8.7 mg/dL (8.6-10.3); Carbon Dioxide 31 mEq/L (23-29); Chloride 102 mEq/L (98-107); Glucose 329 mg/dL (70-105); Osmolality,Calculated 296 (280-300); Potassium 4.1 mEq/L (3.5-5.1); Sodium 136 mEq/L (136-145); eGFR For African Americans > 60 (> 60); eGFR For Non-African Americans > 60 (> 60)
[2017-08-18 16:12] LABS: Troponin I < 0.03 ng/mL (< 0.04)
[2017-08-18] MEDS ORDERED: Naloxone 0.4 MG/ML INJ IVP PRN (17:01)
[2017-08-18] MEDS ORDERED: Isovue-370 500 ML INFUS..BTL IV ONE (17:07)
[2017-08-18] MEDS ORDERED: diazePAM 10 MG TABLET PO PRN (17:08)
[2017-08-18] MEDS ORDERED: Dextrose Gel 15 GM/37.5 ML TUBE PO PRN ×2 (18:29)
[2017-08-18] MEDS ORDERED: *HR* Dextrose 50 % in Water (Syg) 50 ML SYRINGE IVP PRN (18:29)
[2017-08-18] MEDS ORDERED: D5% in Water 1,000 ML IVC PRN (18:29)
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
[2017-08-18] MEDS ORDERED: Insulin LISPRO 300 UNITS/3 ML VIAL SQ SCH (21:00)
[2017-08-18] MEDS ORDERED: Insulin DETEMIR 100 UNIT/ML X5UNITS SQ SCH (21:00)
[2017-08-18] MEDS ORDERED: Ascorbic Acid 500 MG TABLET PO SCH (21:00)
[2017-08-18] MEDS ORDERED: Melatonin 3 MG TABLET PO SCH (21:00)
[2017-08-18] MEDS: Ipratropium/Albuterol Neb 3 ML IH SCH (21:11)
[2017-08-18] MEDS ORDERED: Budesonide/Formoterol 160/4.5 MDI IH SCH (22:00)
[2017-08-18 23:31] VITALS: BP 135/73
[2017-08-19] MEDS ORDERED: Piperacillin/Tazobactam 3.375 GM in 0.9 % Sodium Chloride Mini Bag 100 ML IVPB SCH
--- NOTE | 2017-08-19 03:09 | Event Note ---
Date of Encounter: 08/19/17 Time of Encounter: 03:00 Called by RN pt request to sign AMA. Saw pt bedside. Pt is AAO x 3. Pt said chest pain resolved, it was "gas" causing the pain. Explain to pt that he was admitted to r/o ACS, he has two negative troponin but the third one is not drawn yet, he is not ruled out ACS, which is life-threatening condition. Pt shows understanding and said " this is my body and I would like to take chance" . He insist to leave hospital with AMA. Pt denies cough or fever. He has oxygen at home already. He was told to come to ER or go to see PCP if his symptoms is getting worse. Pt agrees to do so. Pt was treated as HCAP now, however, as pt has no leukocytosis/fever/cough and his CXR change is most likely chronic, I will not prescribe any abx for him at this point.
[2017-08-19] MEDS: Ipratropium/Albuterol Neb 3 ML IH SCH ×2 (03:43→03:50)
[2017-08-19] MEDS ORDERED: *HR* Heparin 5,000 UNIT/ML VIAL SQ SCH (06:00)
[2017-08-19] MEDS ORDERED: Insulin LISPRO 300 UNITS/3 ML VIAL SQ SCH ×2 (07:30→08:00)
[2017-08-19] MEDS ORDERED: Cholecalciferol (D-3) 1,000 UNIT TABLET PO SCH (09:00)
[2017-08-19] MEDS ORDERED: Insulin DETEMIR 100 UNIT/ML X5UNITS SQ SCH (09:00)
--- NOTE | 2017-08-20 08:38 | Electrocardiograph Report ---
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
== END 2017-08-19 04:31 | disposition left against medical advice (07) ==
LOC: EMEROO 14:43 → 3BNU 14:43
PROVIDERS: ADMIT Student in an Organized Health Care Education/Training Program; ATTEND Student in an Organized Health Care Education/Training Program

== ENCOUNTER 2019-04-12 23:43 | Observation (INO) ==
[2019-04-12] MEDS ORDERED: 0.9 % Sodium Chloride 1,000 ML IVC ONE (23:49)
[2019-04-12] MEDS ORDERED: *HR* HYDROmorphone (PF) 1 MG/ML SYRINGE IVP ONE (23:49)
[2019-04-12] MEDS ORDERED: diazePAM 5 MG TABLET PO ONE (23:50)
[2019-04-13 00:52] LABS: Basophils % 0.2 %; Eosinophils # 0.1 K/mcL (0.0-0.6); Eosinophils % 1.2 %; Hematocrit 30.4 % (37.5-50.1); Hemoglobin 9.8 g/dL (12.9-16.9); Immature Granulocytes % 0.2 % (0-4); Lymphocytes # 0.8 K/mcL (0.6-4.6); Lymphocytes % 15.6 %; Mean Corpuscular HGB Conc 32.2 g/dL (31.6-35.5); Mean Corpuscular Hemoglobin 29.6 pg (28.0-33.3); Mean Corpuscular Volume 91.8 fL (83.0-100.0); Mean Platelet Volume 9.3 fL (9.4-12.4); Monocytes # 0.4 K/mcL (0.0-1.3); Monocytes % 8.3 %; Neutrophils # 3.7 K/mcL (1.6-8.9); Platelet Count 110 K/mcL (140-400); Red Blood Count 3.31 M/mcL (4.19-5.50); Red Cell Distribution Width 12.9 % (11.5-14.5); Segmented Neutrophils % 74.5 %
[2019-04-13 01:14] LABS: BUN/Creatinine Ratio 11 (6-26); Blood Urea Nitrogen 15 mg/dL (8-23); Calcium 8.8 mg/dL (8.6-10.3); Carbon Dioxide 28 mEq/L (23-29); Chloride 99 mEq/L (98-107); Glucose 228 mg/dL (70-105); Osmolality,Calculated 284 (280-300); Potassium 4.3 mEq/L (3.5-5.1); Sodium 133 mEq/L (136-145); eGFR For African Americans > 60 (> 60); eGFR For Non-African Americans 53 (> 60)
[2019-04-13 01:32] LABS: Troponin I 0.07 ng/mL (< 0.04)
[2019-04-13] MEDS ORDERED: Aspirin 81 MG TAB.CHEW PO STA (01:33)
[2019-04-13] MEDS ORDERED: Naloxone 0.4 MG/ML INJ IVP PRN (02:43)
[2019-04-13] MEDS ORDERED: Nitroglycerin 0.4 MG TAB.SUBL SL PRN (02:43)
[2019-04-13] MEDS ORDERED: Acetaminophen 325 MG TABLET PO PRN (03:31)
[2019-04-13] MEDS ORDERED: D5% in Water 1,000 ML IVC PRN (03:33)
[2019-04-13] MEDS ORDERED: *HR* Dextrose 50 % in Water (Syg) 50 ML SYRINGE IVP PRN (03:33)
[2019-04-13] MEDS ORDERED: Dextrose Gel 15 GM/37.5 ML TUBE PO PRN ×2 (03:33)
[2019-04-13] MEDS ORDERED: *HR* Heparin 5,000 UNIT/ML VIAL IVP ONE (03:50)
[2019-04-13] MEDS ORDERED: *HR* Heparin 5,000 UNIT/ML VIAL IVP PRN ×2 (03:50)
[2019-04-13] MEDS: *HR* LORazepam 0.5 MG TABLET PO PRN ×3 (04:13→23:36)
[2019-04-13] MEDS: *HR* OxyCODONE/APAP 5/325 TABLET PO PRN ×5 (04:14→22:52)
[2019-04-13] MEDS: Heparin 25,000 UNIT/250 ML D5W 25,000 UNIT/250 ML IV.SOLN IVC SCH (04:16)
[2019-04-13 04:32] LABS: Basophils % 0.2 %; Eosinophils # 0.1 K/mcL (0.0-0.6); Eosinophils % 1.2 %; Hematocrit 30.7 % (37.5-50.1); Hemoglobin 9.9 g/dL (12.9-16.9); Immature Granulocytes % 0.5 % (0-4); Lymphocytes # 1.3 K/mcL (0.6-4.6); Lymphocytes % 20.4 %; Mean Corpuscular HGB Conc 32.2 g/dL (31.6-35.5); Mean Corpuscular Hemoglobin 29.6 pg (28.0-33.3); Mean Corpuscular Volume 91.9 fL (83.0-100.0); Mean Platelet Volume 9.4 fL (9.4-12.4); Monocytes # 0.5 K/mcL (0.0-1.3); Monocytes % 7.4 %; Neutrophils # 4.6 K/mcL (1.6-8.9); Platelet Count 123 K/mcL (140-400); Red Blood Count 3.34 M/mcL (4.19-5.50); Red Cell Distribution Width 12.9 % (11.5-14.5); Segmented Neutrophils % 70.3 %; White Blood Count 6.5 K/mcL (4.3-11.1)
[2019-04-13 04:40] LABS: Heparin anti-factor XA UFH < 0.04 IU/mL (0.30-0.70)
[2019-04-13 04:41] LABS: Prothrombin Time 11.6 Seconds (9.4-12.1)
[2019-04-13 04:51] LABS: Alanine Aminotransferase 8 Units/L (7-52); Albumin 3.9 g/dL (3.5-5.7); Albumin/Globulin Ratio 1.4 (1.1-2.2); Alkaline Phosphatase 57 Units/L (34-104); Aspartate Amino Transferase 13 Units/L (13-39); BUN/Creatinine Ratio 11 (6-26); Bilirubin,Total 0.4 mg/dL (0.3-1.0); Blood Urea Nitrogen 15 mg/dL (8-23); Calcium 8.6 mg/dL (8.6-10.3); Carbon Dioxide 25 mEq/L (23-29); Chloride 102 mEq/L (98-107); Chol/HDL Ratio 2.5 (0-4.9); Cholesterol 112 mg/dL (< 200); Globulin 2.8 g/dL (2.4-3.5); Glucose 135 mg/dL (70-105); HDL Cholesterol 45 mg/dL (40-59); LDL Cholesterol,Calculated 46 mg/dL (0-99); Magnesium 1.2 mg/dL (1.6-2.6); Osmolality,Calculated 281 (280-300); Phosphorous 3.4 mg/dL (2.7-4.5); Potassium 4.7 mEq/L (3.5-5.1); Sodium 134 mEq/L (136-145); Total Protein 6.7 g/dL (6.4-8.9); Triglycerides 103 mg/dL (< 150); eGFR For African Americans > 60 (> 60); eGFR For Non-African Americans 51 (> 60)
[2019-04-13] MEDS: Ipratropium/Albuterol Neb 3 ML IH SCH ×7 (05:05→23:41)
[2019-04-13 08:07] LABS: Estimated Average Glucose 154 mg/dl
[2019-04-13] MEDS: lisinopriL 20 MG TABLET PO SCH (09:01)
[2019-04-13] MEDS: Insulin LISPRO 300 UNITS/3 ML VIAL SQ SCH ×3 (09:08→18:27)
[2019-04-13] MEDS: Budesonide/Formoterol 160/4.5 1 PUFF INH IH SCH ×2 (10:57→19:49)
[2019-04-13 14:05] LABS: Bilirubin,Urine Negative (Negative); Blood,Urine Negative (Negative); Color,Urine Yellow (Yellow); Glucose,Urine (UA) Normal (Normal); Ketones,Urine Negative (Negative); Leukocyte Esterase,Urine Moderate (Negative); Nitrite,Urine Positive (Negative); PH,Urine 5.5 pH Units (5.0-8.0); Protein,Urine Negative (Neg-Trace); Specific Gravity,Urine 1.012 (1.010-1.025); Urobilinogen,Urine Normal (Normal)
[2019-04-13 14:08] LABS: Bacteria,Urine Many per hpf (None-Few); Hyaline Casts,Urine None Seen per lpf (None-Few); Squamous Epithelial Cell,Urine Moderate per lpf (None-Few); WBC,Urine 30-50 per hpf (0-3)
[2019-04-13 14:13] LABS: Clarity,Urine Slightly Hazy (Clear)
[2019-04-13] MEDS ORDERED: Insulin LISPRO 300 UNITS/3 ML VIAL SQ SCH (21:00)
[2019-04-13] MEDS ORDERED: Melatonin 3 MG TABLET PO SCH (21:00)
[2019-04-14] MEDS ORDERED: *HR* Heparin 5,000 UNIT/ML VIAL SQ SCH (02:44)
[2019-04-14] MEDS: Ipratropium/Albuterol Neb 3 ML IH SCH ×3 (03:29→11:40)
[2019-04-14] MEDS: Heparin 25,000 UNIT/250 ML D5W 25,000 UNIT/250 ML IV.SOLN IVC SCH (03:31)
[2019-04-14] MEDS: *HR* OxyCODONE/APAP 5/325 TABLET PO PRN ×3 (03:59→12:09)
[2019-04-14 07:06] LABS: Basophils % 0.3 %; Eosinophils # 0.1 K/mcL (0.0-0.6); Eosinophils % 2.4 %; Hematocrit 29.3 % (37.5-50.1); Hemoglobin 9.3 g/dL (12.9-16.9); Immature Granulocytes % 0.5 % (0-4); Lymphocytes # 0.8 K/mcL (0.6-4.6); Lymphocytes % 22.6 %; Mean Corpuscular HGB Conc 31.7 g/dL (31.6-35.5); Mean Corpuscular Hemoglobin 29.2 pg (28.0-33.3); Mean Corpuscular Volume 91.8 fL (83.0-100.0); Mean Platelet Volume 9.5 fL (9.4-12.4); Monocytes # 0.3 K/mcL (0.0-1.3); Monocytes % 6.7 %; Neutrophils # 2.5 K/mcL (1.6-8.9); Platelet Count 106 K/mcL (140-400); Red Blood Count 3.19 M/mcL (4.19-5.50); Red Cell Distribution Width 13.1 % (11.5-14.5); Segmented Neutrophils % 67.5 %; White Blood Count 3.7 K/mcL (4.3-11.1)
[2019-04-14 07:28] LABS: BUN/Creatinine Ratio 10 (6-26); Blood Urea Nitrogen 14 mg/dL (8-23); Calcium 8.8 mg/dL (8.6-10.3); Carbon Dioxide 29 mEq/L (23-29); Chloride 101 mEq/L (98-107); Glucose 173 mg/dL (70-105); Osmolality,Calculated 291 (280-300); Potassium 4.5 mEq/L (3.5-5.1); Sodium 138 mEq/L (136-145); eGFR For African Americans > 60 (> 60); eGFR For Non-African Americans 52 (> 60)
[2019-04-14] MEDS: Budesonide/Formoterol 160/4.5 1 PUFF INH IH SCH (07:50)
[2019-04-14] MEDS: lisinopriL 20 MG TABLET PO SCH (08:06)
[2019-04-14] MEDS: Insulin LISPRO 300 UNITS/3 ML VIAL SQ SCH ×2 (08:06→12:06)
[2019-04-14] MEDS ORDERED: Perflutren Lipid Microsphere 1.3 ML in 0.9 % Sodium Chloride 8.7 ML IVP ONE (09:58)
[2019-04-14] MEDS ORDERED: *HR* LORazepam 0.5 MG TABLET PO ONE (10:10)
[2019-04-14 10:48] VITALS: BP 126/71
== END 2019-04-14 14:49 | disposition other institution (70) ==
LOC: EMEROOARM 23:43 → CDU 23:43 → SUATTDRO 04-13 02:58 → CDU 04-13 04:00 → 3NENU 04-13 07:29
PROVIDERS: ADMIT Internal Medicine; ATTEND Student in an Organized Health Care Education/Training Program

== ENCOUNTER 2019-06-28 01:37 | Inpatient (IN) ==
[2019-06-28 02:49] LABS: Basophils % 0.2 %; Eosinophils # 0.1 K/mcL (0.0-0.6); Eosinophils % 0.9 %; Hematocrit 22.4 % (37.5-50.1); Immature Granulocytes % 0.5 % (0-4); Lymphocytes # 0.7 K/mcL (0.6-4.6); Lymphocytes % 11.6 %; Mean Corpuscular HGB Conc 31.3 g/dL (31.6-35.5); Mean Corpuscular Hemoglobin 30.4 pg (28.0-33.3); Mean Corpuscular Volume 97.4 fL (83.0-100.0); Mean Platelet Volume 10.5 fL (9.4-12.4); Monocytes # 0.5 K/mcL (0.0-1.3); Monocytes % 8.1 %; Neutrophils # 4.4 K/mcL (1.6-8.9); Platelet Count 160 K/mcL (140-400); Segmented Neutrophils % 78.7 %; White Blood Count 5.6 K/mcL (4.3-11.1)
[2019-06-28 03:01] LABS: INR 1.4; Prothrombin Time 16.3 Seconds (9.4-12.1)
[2019-06-28 03:03] LABS: Activated Partial Thrombo Time 26.8 Seconds (26.0-36.0)
[2019-06-28 03:19] LABS: Bilirubin,Urine Moderate (Negative); Blood,Urine Negative (Negative); Color,Urine Yellow (Yellow); Glucose,Urine (UA) Normal (Normal); Ketones,Urine Negative (Negative); Leukocyte Esterase,Urine Moderate (Negative); Nitrite,Urine Negative (Negative); Protein,Urine 30 mg/dL (Neg-Trace); Specific Gravity,Urine 1.024 (1.010-1.025); Urobilinogen,Urine Normal (Normal)
[2019-06-28 03:22] LABS: Bacteria,Urine Many per hpf (None-Few); RBC,Urine 0-3 per hpf (0-3); Squamous Epithelial Cell,Urine Moderate per lpf (None-Few); WBC,Urine 50-100 per hpf (0-3)
[2019-06-28 03:24] LABS: Clarity,Urine Slightly Cloudy (Clear)
[2019-06-28 03:32] LABS: Hyaline Casts,Urine Few per lpf (None-Few)
[2019-06-28 03:35] LABS: Albumin 3.4 g/dL (3.5-5.7); Albumin/Globulin Ratio 1.3 (1.1-2.2); Bilirubin,Total 0.3 mg/dL (0.3-1.0); Calcium 8.3 mg/dL (8.6-10.3); Globulin 2.7 g/dL (2.4-3.5); Potassium 5.8 mEq/L (3.5-5.1); Total Protein 6.1 g/dL (6.4-8.9)
[2019-06-28 03:40] LABS: Troponin I 0.1 ng/mL (< 0.04)
[2019-06-28] MEDS ORDERED: cefTRIAXone 1,000 MG in 0.9 % Sodium Chloride Mini Bag 100 ML IVPB ONE (03:45)
[2019-06-28] MEDS ORDERED: Naloxone 0.4 MG/ML INJ IVP PRN (05:09)
[2019-06-28] MEDS ORDERED: 0.9 % Sodium Chloride 500 ML ONE (05:12)
[2019-06-28] MEDS ORDERED: D5% in Water 1,000 ML IVC PRN (05:56)
[2019-06-28] MEDS ORDERED: Dextrose Gel 15 GM/37.5 ML TUBE PO PRN ×2 (05:56)
[2019-06-28] MEDS ORDERED: *HR* Dextrose 50 % in Water (Syg) 50 ML SYRINGE IVP PRN (05:56)
[2019-06-28] MEDS ORDERED: Acetaminophen 325 MG TABLET PO PRN (06:30)
[2019-06-28] MEDS ORDERED: Mag Hydrox/Al Hydrox/Simeth 30 ML UDC PO PRN (06:30)
[2019-06-28] MEDS ORDERED: Artificial Tears SOLN 15 ML BOTTLE LEFT EYE PRN (06:30)
[2019-06-28 07:25] LABS: Thyroid Stimulating Hormone 2.013 mcIU/mL (0.340-5.600)
[2019-06-28] MEDS: Ipratropium/Albuterol Neb 3 ML IH SCH ×2 (07:49→20:04)
[2019-06-28] MEDS: Budesonide/Formoterol 160/4.5 1 PUFF INH IH SCH ×2 (07:51→20:04)
[2019-06-28] MEDS: Morphine Intrathecdal Pump IT SCH (08:49)
[2019-06-28] MEDS ORDERED: Aspirin 81 MG TAB.CHEW PO SCH (09:00)
[2019-06-28] MEDS ORDERED: Pantoprazole 40 MG VIAL IVP SCH (09:00)
[2019-06-28] MEDS ORDERED: Aspirin Enteric Coated 81 MG Tablet PO SCH (09:00)
[2019-06-28] MEDS ORDERED: Cyanocobalamin (B-12) 1,000 MCG/ML VIAL IM SCH (09:00)
[2019-06-28] MEDS: Baclofen 10 MG TABLET PO SCH ×2 (09:02→21:02)
[2019-06-28] MEDS: diazePAM 2 MG TABLET PO SCH ×3 (09:02→21:02)
[2019-06-28] MEDS: polyethylene glycoL 3350 17 GM POWD.PACK PO SCH (09:03)
[2019-06-28] MEDS: Cholecalciferol (D-3) 1,000 UNIT (25MCG) TABLET PO SCH (09:03)
[2019-06-28] MEDS: Sennosides/Docusate Sodium TABLET PO SCH (09:03)
[2019-06-28] MEDS: Insulin LISPRO 300 UNITS/3 ML VIAL SQ SCH ×4 (09:03→19:49)
[2019-06-28] MEDS: *HR* OxyCODONE/APAP 5/325 TABLET PO PRN (09:13)
[2019-06-28 09:42] LABS: Calcium 8.5 mg/dL (8.6-10.3); Potassium 5.3 mEq/L (3.5-5.1)
[2019-06-28] MEDS ORDERED: 0.9 % Sodium Chloride 250 ML ONE (11:00)
[2019-06-28] MEDS ORDERED: 0.9 % Sodium Chloride 1,000 ML ONE (12:05)
[2019-06-28] MEDS ORDERED: 0.9 % Sodium Chloride 1,000 ML IVC ONE (12:06)
[2019-06-28 12:17] LABS: Hematocrit 26.3 % (37.5-50.1); Hemoglobin 8.1 g/dL (12.9-16.9)
[2019-06-28] MEDS: 0.9 % Sodium Chloride 1,000 ML IVC SCH ×2 (15:13→23:26)
[2019-06-28 15:16] LABS: Complement C3 114 mg/dL (87-200)
[2019-06-28 15:17] LABS: Uric Acid 9.7 mg/dL (2.3-7.6)
[2019-06-28] MEDS: Pantoprazole 40 MG VIAL IVP SCH (16:18)
[2019-06-28] MEDS ORDERED: SODIUM CHLORIDE/NAHCO3/KCL/PEG 4,000 ML SOLN.RECON PO ONE (17:00)
[2019-06-28 18:53] LABS: Hematocrit 27.7 % (37.5-50.1); Hemoglobin 8.5 g/dL (12.9-16.9)
[2019-06-28] MEDS: Melatonin 3 MG TABLET PO SCH (21:02)
[2019-06-29] MEDS: *HR* OxyCODONE/APAP 5/325 TABLET PO PRN ×3 (00:21→17:45)
[2019-06-29] MEDS: Pantoprazole 40 MG VIAL IVP SCH ×2 (05:32→17:44)
[2019-06-29] MEDS: Morphine Intrathecdal Pump IT SCH (05:35)
[2019-06-29 05:46] LABS: Hemoglobin 8.3 g/dL (12.9-16.9); Mean Corpuscular HGB Conc 31.9 g/dL (31.6-35.5); Mean Platelet Volume 10.2 fL (9.4-12.4); Platelet Count 169 K/mcL (140-400); Red Blood Count 2.68 M/mcL (4.19-5.50); Red Cell Distribution Width 13.6 % (11.5-14.5); White Blood Count 6.5 K/mcL (4.3-11.1)
[2019-06-29 06:28] LABS: Potassium 5.1 mEq/L (3.5-5.1)
[2019-06-29] MEDS: Budesonide/Formoterol 160/4.5 1 PUFF INH IH SCH ×2 (07:41→19:56)
[2019-06-29] MEDS: Ipratropium/Albuterol Neb 3 ML IH SCH ×2 (07:41→19:56)
[2019-06-29] MEDS ORDERED: 0.9 % Sodium Chloride 1,000 ML IVC SCH (08:43)
[2019-06-29] MEDS: Insulin LISPRO 300 UNITS/3 ML VIAL SQ SCH ×4 (08:49→21:27)
[2019-06-29] MEDS: Cholecalciferol (D-3) 1,000 UNIT (25MCG) TABLET PO SCH (08:55)
[2019-06-29] MEDS: Baclofen 10 MG TABLET PO SCH ×2 (08:56→19:33)
[2019-06-29] MEDS: diazePAM 2 MG TABLET PO SCH ×3 (08:57→19:33)
[2019-06-29] MEDS: polyethylene glycoL 3350 17 GM POWD.PACK PO SCH (08:57)
[2019-06-29] MEDS: Sennosides/Docusate Sodium TABLET PO SCH (08:58)
[2019-06-29] MEDS: cefTRIAXone 1,000 MG in 0.9 % Sodium Chloride Mini Bag 100 ML IVPB SCH (08:58)
[2019-06-29] MEDS ORDERED: SODIUM CHLORIDE/NAHCO3/KCL/PEG 4,000 ML SOLN.RECON PO ONE (17:00)
[2019-06-29 18:58] LABS: Protein/Creatinine Ratio,Urine 0.33 mg/mg (0.00-0.20); Sodium, Urine 36.6 mEq/L
[2019-06-29] MEDS: Melatonin 3 MG TABLET PO SCH (19:32)
[2019-06-30] MEDS: *HR* OxyCODONE/APAP 5/325 TABLET PO PRN (03:08)
[2019-06-30 04:16] LABS: Hematocrit 27.6 % (37.5-50.1); Hemoglobin 8.4 g/dL (12.9-16.9); Mean Corpuscular HGB Conc 30.4 g/dL (31.6-35.5); Mean Corpuscular Volume 98.6 fL (83.0-100.0); Mean Platelet Volume 10.4 fL (9.4-12.4); Platelet Count 151 K/mcL (140-400); Red Cell Distribution Width 13.6 % (11.5-14.5); White Blood Count 4.6 K/mcL (4.3-11.1)
[2019-06-30 04:35] LABS: Calcium 8.2 mg/dL (8.6-10.3); Potassium 4.7 mEq/L (3.5-5.1)
[2019-06-30 04:37] LABS: Magnesium 1.7 mg/dL (1.6-2.6); Phosphorous 4.9 mg/dL (2.7-4.5)
[2019-06-30] MEDS: Pantoprazole 40 MG VIAL IVP SCH (05:54)
[2019-06-30] MEDS: Morphine Intrathecdal Pump IT SCH (05:55)
[2019-06-30] MEDS ORDERED: 0.9 % Sodium Chloride 1,000 ML IVC SCH ×2 (07:15→13:07)
[2019-06-30] MEDS: Baclofen 10 MG TABLET PO SCH ×2 (07:59→20:54)
[2019-06-30] MEDS: diazePAM 2 MG TABLET PO SCH ×3 (07:59→20:53)
[2019-06-30] MEDS: cefTRIAXone 1,000 MG in 0.9 % Sodium Chloride Mini Bag 100 ML IVPB SCH (08:00)
[2019-06-30] MEDS: Cholecalciferol (D-3) 1,000 UNIT (25MCG) TABLET PO SCH (08:00)
[2019-06-30] MEDS: Insulin LISPRO 300 UNITS/3 ML VIAL SQ SCH ×4 (08:01→20:49)
[2019-06-30] MEDS: Sennosides/Docusate Sodium TABLET PO SCH (08:03)
[2019-06-30] MEDS: polyethylene glycoL 3350 17 GM POWD.PACK PO SCH (08:03)
[2019-06-30] MEDS ORDERED: Lidocaine -MPF 2% 2 ML VIAL ONE (09:18)
[2019-06-30] MEDS ORDERED: *HR* Propofol 200 MG/20 ML VIAL IVP ONE (09:18)
[2019-06-30] MEDS ORDERED: *HR* PHENYLEPHRINE 1,000 MCG/10 ML SYRINGE IVP ONE (09:28)
[2019-06-30] MEDS ORDERED: Simethicone 40 MG/0.6 ML MLS IR ONE (10:07)
[2019-06-30] MEDS: Ipratropium/Albuterol Neb 3 ML IH SCH ×2 (10:45→20:08)
[2019-06-30] MEDS: Budesonide/Formoterol 160/4.5 1 PUFF INH IH SCH ×2 (10:46→20:08)
[2019-06-30 12:38] LABS: ABG Base Excess -6 mEq/L (-2 to 3); ABG HCO3 21 mEq/L (21-27); ABG Oxygen Saturation 97 % (95-98); ABG PCO2 54 mmHg (35-45); ABG PH 7.21 pH Units (7.32-7.45); ABG PO2 108 mmHg (85-104); ABG TCO2 23 mEq/L (20-26)
[2019-06-30] MEDS ORDERED: Naloxone 0.4 MG/ML INJ IVP ONE (12:48)
[2019-06-30] MEDS ORDERED: 0.9 % Sodium Chloride 500 ML IVC ONE (12:50)
[2019-06-30 13:46] LABS: Basophils % 0.2 %; Eosinophils # 0.1 K/mcL (0.0-0.6); Eosinophils % 2.1 %; Hematocrit 27.3 % (37.5-50.1); Hemoglobin 8.3 g/dL (12.9-16.9); Immature Granulocytes % 0.5 % (0-4); Lymphocytes # 0.9 K/mcL (0.6-4.6); Lymphocytes % 21.3 %; Mean Corpuscular HGB Conc 30.4 g/dL (31.6-35.5); Mean Corpuscular Hemoglobin 30.2 pg (28.0-33.3); Mean Corpuscular Volume 99.3 fL (83.0-100.0); Mean Platelet Volume 10.3 fL (9.4-12.4); Monocytes # 0.5 K/mcL (0.0-1.3); Monocytes % 11.9 %; Neutrophils # 2.7 K/mcL (1.6-8.9); Platelet Count 155 K/mcL (140-400); Red Blood Count 2.75 M/mcL (4.19-5.50); Red Cell Distribution Width 13.6 % (11.5-14.5); White Blood Count 4.3 K/mcL (4.3-11.1)
[2019-06-30 14:05] LABS: Calcium 8.1 mg/dL (8.6-10.3); Potassium 4.5 mEq/L (3.5-5.1)
[2019-06-30] MEDS: Melatonin 3 MG TABLET PO SCH (20:53)
[2019-07-01 03:57] LABS: Hematocrit 28.1 % (37.5-50.1); Hemoglobin 8.6 g/dL (12.9-16.9); Mean Corpuscular HGB Conc 30.6 g/dL (31.6-35.5); Mean Corpuscular Hemoglobin 30.5 pg (28.0-33.3); Mean Corpuscular Volume 99.6 fL (83.0-100.0); Mean Platelet Volume 11.1 fL (9.4-12.4); Platelet Count 161 K/mcL (140-400); Red Blood Count 2.82 M/mcL (4.19-5.50); Red Cell Distribution Width 13.6 % (11.5-14.5); White Blood Count 5.6 K/mcL (4.3-11.1)
[2019-07-01 04:08] LABS: Calcium 7.9 mg/dL (8.6-10.3); Potassium 5.1 mEq/L (3.5-5.1)
[2019-07-01] MEDS: Morphine Intrathecdal Pump IT SCH (04:18)
[2019-07-01] MEDS: diazePAM 2 MG TABLET PO SCH ×3 (08:46→20:20)
[2019-07-01] MEDS: Sennosides/Docusate Sodium TABLET PO SCH (08:46)
[2019-07-01] MEDS: Cholecalciferol (D-3) 1,000 UNIT (25MCG) TABLET PO SCH (08:46)
[2019-07-01] MEDS: Aspirin Enteric Coated 81 MG Tablet PO SCH (08:46)
[2019-07-01] MEDS: cefTRIAXone 1,000 MG in 0.9 % Sodium Chloride Mini Bag 100 ML IVPB SCH (08:47)
[2019-07-01] MEDS: polyethylene glycoL 3350 17 GM POWD.PACK PO SCH (08:47)
[2019-07-01] MEDS: Baclofen 10 MG TABLET PO SCH ×2 (08:47→20:19)
[2019-07-01] MEDS: Insulin LISPRO 300 UNITS/3 ML VIAL SQ SCH ×4 (08:49→20:21)
[2019-07-01] MEDS ORDERED: Pantoprazole 40 MG VIAL IVP SCH (09:00)
[2019-07-01 10:51] LABS: ANA IgG by ELISA NONE DETECTED (None Detected)
[2019-07-01] MEDS: Ipratropium/Albuterol Neb 3 ML IH SCH ×2 (11:26→20:58)
[2019-07-01] MEDS: Budesonide/Formoterol 160/4.5 1 PUFF INH IH SCH ×2 (11:28→20:56)
[2019-07-01] MEDS ORDERED: Sodium Bicarbonate 75 MEQ in 0.45 % Sodium Chloride 1,000 ML IVC SCH (11:45)
[2019-07-01] MEDS ORDERED: Bumetanide 1 MG/4 ML VIAL IVP ONE (14:42)
[2019-07-01] MEDS: *HR* Heparin 5,000 UNIT/ML VIAL SQ SCH (17:22)
[2019-07-01] MEDS: Melatonin 3 MG TABLET PO SCH (20:19)
[2019-07-02 03:13] LABS: Basophils % 0.3 %; Eosinophils # 0.1 K/mcL (0.0-0.6); Eosinophils % 1.6 %; Hematocrit 26.5 % (37.5-50.1); Hemoglobin 8.1 g/dL (12.9-16.9); Immature Granulocytes % 0.5 % (0-4); Lymphocytes # 0.6 K/mcL (0.6-4.6); Lymphocytes % 16.6 %; Mean Corpuscular HGB Conc 30.6 g/dL (31.6-35.5); Mean Corpuscular Hemoglobin 30.7 pg (28.0-33.3); Mean Corpuscular Volume 100.4 fL (83.0-100.0); Monocytes # 0.4 K/mcL (0.0-1.3); Monocytes % 9.4 %; Neutrophils # 2.8 K/mcL (1.6-8.9); Platelet Count 156 K/mcL (140-400); Red Blood Count 2.64 M/mcL (4.19-5.50); Red Cell Distribution Width 13.6 % (11.5-14.5); Segmented Neutrophils % 71.6 %; White Blood Count 3.9 K/mcL (4.3-11.1)
[2019-07-02 03:37] LABS: Albumin 3.4 g/dL (3.5-5.7); Calcium 8.3 mg/dL (8.6-10.3); Phosphorous 3.6 mg/dL (2.7-4.5); Potassium 4.8 mEq/L (3.5-5.1)
[2019-07-02] MEDS: *HR* Heparin 5,000 UNIT/ML VIAL SQ SCH (05:24)
[2019-07-02] MEDS: Morphine Intrathecdal Pump IT SCH (05:25)
[2019-07-02] MEDS ORDERED: Bumetanide 1 MG/4 ML VIAL IVP ONE (07:22)
[2019-07-02] MEDS: cefTRIAXone 1,000 MG in 0.9 % Sodium Chloride Mini Bag 100 ML IVPB SCH (09:32)
[2019-07-02] MEDS: diazePAM 2 MG TABLET PO SCH (09:34)
[2019-07-02] MEDS: polyethylene glycoL 3350 17 GM POWD.PACK PO SCH (09:34)
[2019-07-02] MEDS: Aspirin Enteric Coated 81 MG Tablet PO SCH (09:34)
[2019-07-02] MEDS: Cholecalciferol (D-3) 1,000 UNIT (25MCG) TABLET PO SCH (09:35)
[2019-07-02] MEDS: Sennosides/Docusate Sodium TABLET PO SCH (09:35)
[2019-07-02] MEDS: Baclofen 10 MG TABLET PO SCH (09:35)
[2019-07-02] MEDS: Insulin LISPRO 300 UNITS/3 ML VIAL SQ SCH ×2 (09:36→13:00)
[2019-07-02] MEDS: *HR* OxyCODONE/APAP 5/325 TABLET PO PRN (09:46)
[2019-07-02] MEDS: Budesonide/Formoterol 160/4.5 1 PUFF INH IH SCH (10:21)
[2019-07-02] MEDS: Ipratropium/Albuterol Neb 3 ML IH SCH (10:21)
[2019-07-02 10:52] VITALS: BP 100/59
== END 2019-07-02 13:58 | DRG 377 ==
LOC: EMEROOARM 01:37 → 2ANU 01:37 → SUATTDRO 04:26 → 2ANU 05:50 → 3NENU 14:48 → SUATTDRO 06-29 14:36 → 2ANU 06-29 20:47
PROVIDERS: ADMIT Student in an Organized Health Care Education/Training Program; ATTEND Internal Medicine
PROC: ENDOCBX (2019-06-30 10:20)

== ENCOUNTER 2020-08-16 04:27 | Inpatient (IN) ==
[2020-08-16 05:11] LABS: Basophils % 0.2 %; Eosinophils # 0.1 K/mcL (0.0-0.6); Eosinophils % 1.6 %; Hematocrit 31.3 % (37.5-50.1); Hemoglobin 9.3 g/dL (12.9-16.9); Immature Granulocytes % 0.5 % (0-4); Lymphocytes # 0.7 K/mcL (0.6-4.6); Lymphocytes % 11.6 %; Mean Corpuscular HGB Conc 29.7 g/dL (31.6-35.5); Mean Corpuscular Hemoglobin 29.2 pg (28.0-33.3); Mean Corpuscular Volume 98.1 fL (83.0-100.0); Mean Platelet Volume 10.6 fL (9.4-12.4); Monocytes # 0.4 K/mcL (0.0-1.3); Monocytes % 7.9 %; Neutrophils # 4.4 K/mcL (1.6-8.9); Platelet Count 78 K/mcL (140-400); Red Blood Count 3.19 M/mcL (4.19-5.50); Red Cell Distribution Width 13.7 % (11.5-14.5); Segmented Neutrophils % 78.2 %; White Blood Count 5.6 K/mcL (4.3-11.1)
[2020-08-16 05:21] LABS: Calcium 8.9 mg/dL (8.6-10.3); Potassium 4.8 mEq/L (3.5-5.1)
[2020-08-16 05:21] LABS: INR 2.2; Prothrombin Time 24.7 Seconds (9.4-12.1)
[2020-08-16 05:24] LABS: Activated Partial Thrombo Time 30.5 Seconds (26.0-36.0)
[2020-08-16 05:28] LABS: Troponin I 0.05 ng/mL (< 0.04)
[2020-08-16] MEDS ORDERED: *HR* Heparin 5,000 UNIT/ML VIAL IVP PRN ×2 (07:39)
[2020-08-16] MEDS ORDERED: Aspirin 325 MG TABLET PO ONE (07:39)
[2020-08-16] MEDS ORDERED: *HR* Heparin 5,000 UNIT/ML VIAL IVP ONE (07:39)
[2020-08-16] MEDS ORDERED: Heparin 25,000UNIT/250ML 1/2NS 25,000 UNIT/250 ML IV.SOLN IVC SCH (07:45)
[2020-08-16] MEDS ORDERED: Acetaminophen 325 MG TABLET PO PRN (07:51)
[2020-08-16] MEDS ORDERED: Dextrose Gel 15 GM/37.5 ML TUBE PO PRN ×2 (07:56)
[2020-08-16] MEDS ORDERED: D5% in Water 1,000 ML IVC PRN (07:56)
[2020-08-16] MEDS ORDERED: Perflutren Lipid Microsphere 1.3 ML in 0.9 % Sodium Chloride 8.7 ML IVP PRN (07:58)
[2020-08-16 08:41] LABS: Bilirubin,Urine Negative (Negative); Blood,Urine Negative (Negative); Clarity,Urine Clear (Clear); Color,Urine Light-Yellow (Yellow); Glucose,Urine (UA) Normal (Normal); Ketones,Urine Negative (Negative); Leukocyte Esterase,Urine Negative (Negative); Nitrite,Urine Negative (Negative); Protein,Urine Negative (Neg-Trace); Specific Gravity,Urine 1.017 (1.010-1.025); Urobilinogen,Urine Normal (Normal)
[2020-08-16 08:43] LABS: INR 2.5; Prothrombin Time 28.2 Seconds (9.4-12.1)
[2020-08-16 08:46] LABS: Heparin anti-factor XA UFH > 2.00 IU/mL (0.30-0.70)
[2020-08-16 08:51] LABS: Hematocrit 32.8 % (37.5-50.1); Hemoglobin 9.8 g/dL (12.9-16.9); Immature Platelets 3.4 % (1.1-6.1); Mean Corpuscular HGB Conc 29.9 g/dL (31.6-35.5); Mean Corpuscular Hemoglobin 29.6 pg (28.0-33.3); Mean Corpuscular Volume 99.1 fL (83.0-100.0); Mean Platelet Volume 10.5 fL (9.4-12.4); Red Blood Count 3.31 M/mcL (4.19-5.50); Red Cell Distribution Width 13.7 % (11.5-14.5); White Blood Count 7.1 K/mcL (4.3-11.1)
[2020-08-16 09:16] LABS: Troponin I 0.06 ng/mL (< 0.04)
[2020-08-16] MEDS: cefTRIAXone 2,000 MG in Water for inj. (sterile) 20 ML IVP SCH (10:02)
[2020-08-16] MEDS: Metoprolol XL (24 HR) Succ 25 MG TAB.ER.24H PO SCH ×2 (10:02→10:16)
[2020-08-16] MEDS: Azithromycin 500 MG in 0.9 % Sodium Chloride 250 ML IVPB SCH (10:03)
[2020-08-16] MEDS: Furosemide 20 MG/2 ML VIAL IVP SCH (10:07)
[2020-08-16] MEDS: Ipratropium/Albuterol Neb 3 ML IH SCH ×5 (10:25→23:04)
[2020-08-16] MEDS: *HR* Dextrose 50 % in Water (Vial) 50 ML VIAL IVP PRN ×2 (10:55→15:29)
[2020-08-16] MEDS: Insulin LISPRO 300 UNITS/3 ML VIAL SUBQ SCH ×3 (11:15→20:07)
[2020-08-16] MEDS ORDERED: Naloxone 0.4 MG/ML INJ IVP ONE ×3 (11:40→11:50)
[2020-08-16 11:50] LABS: ABG Base Excess 10 mEq/L (-2 to 3); ABG HCO3 37 mEq/L (21-27); ABG Oxygen Saturation 96 % (95-98); ABG PCO2 62 mmHg (35-45); ABG PH 7.38 pH Units (7.32-7.45); ABG PO2 83 mmHg (85-104); ABG TCO2 39 mEq/L (20-26)
[2020-08-16] MEDS: Heparin 25,000UNIT/250ML 1/2NS 25,000 UNIT/250 ML IV.SOLN IVC SCH (11:55)
[2020-08-16 15:39] LABS: Adenovirus Not Detected (Not Detect); Bordetella Pertussis Not Detected (Not Detect); Chlamydophila pneumoniae Not Detected (Not Detect); Coronavirus 229E Not Detected (Not Detect); Coronavirus HKU1 Not Detected (Not Detect); Coronavirus NL63 Not Detected (Not Detect); Coronavirus OC43 Not Detected (Not Detect); Human Metapneumovirus Not Detected (Not Detect); Human Rhinovirus/Enterovirus Not Detected (Not Detect); Influenza A Subtype 2009 H1 Not Detected (Not Detect); Influenza B Not Detected (Not Detect); Mycoplasma pneumoniae Not Detected (Not Detect); Parainfluenza Virus 1 Not Detected (Not Detect); Parainfluenza Virus 2 Not Detected (Not Detect); Parainfluenza Virus 3 Not Detected (Not Detect); Parainfluenza Virus 4 Not Detected (Not Detect); Respiratory Syncytial Virus Not Detected (Not Detect); SARS-CoV-2 Not Detected (Not Detect)
[2020-08-16] MEDS: D5% in Lactated Ringers 1,000 ML IVC SCH (15:44)
[2020-08-17 01:53] LABS: Hematocrit 29.3 % (37.5-50.1); Hemoglobin 9.1 g/dL (12.9-16.9); Immature Platelets 3.8 % (1.1-6.1); Mean Corpuscular HGB Conc 31.1 g/dL (31.6-35.5); Mean Corpuscular Hemoglobin 30.1 pg (28.0-33.3); Mean Platelet Volume 10.4 fL (9.4-12.4); Red Blood Count 3.02 M/mcL (4.19-5.50); Red Cell Distribution Width 13.8 % (11.5-14.5); White Blood Count 5.3 K/mcL (4.3-11.1)
[2020-08-17 02:10] LABS: Calcium 8.7 mg/dL (8.6-10.3); Potassium 4.8 mEq/L (3.5-5.1)
[2020-08-17] MEDS: Ipratropium/Albuterol Neb 3 ML IH SCH ×5 (03:33→20:14)
[2020-08-17] MEDS: Ondansetron ODT 4 MG TAB.RAPDIS SL PRN ×3 (03:56→23:07)
[2020-08-17] MEDS: Heparin 25,000UNIT/250ML 1/2NS 25,000 UNIT/250 ML IV.SOLN IVC SCH (06:52)
[2020-08-17] MEDS: D5% in Lactated Ringers 1,000 ML IVC SCH (07:36)
[2020-08-17] MEDS: Insulin LISPRO 300 UNITS/3 ML VIAL SUBQ SCH ×4 (08:34→20:21)
[2020-08-17] MEDS: Metoprolol XL (24 HR) Succ 25 MG TAB.ER.24H PO SCH (08:46)
[2020-08-17] MEDS: Aspirin 81 MG TAB.CHEW PO SCH (08:47)
[2020-08-17] MEDS: Furosemide 20 MG/2 ML VIAL IVP SCH ×2 (08:47→19:52)
[2020-08-17] MEDS: Azithromycin 500 MG in 0.9 % Sodium Chloride 250 ML IVPB SCH (08:48)
[2020-08-17] MEDS: cefTRIAXone 2,000 MG in Water for inj. (sterile) 20 ML IVP SCH (08:48)
[2020-08-17] MEDS ORDERED: Melatonin 3 MG TABLET PO PRN (11:25)
[2020-08-17] MEDS: Apixaban 5 MG TABLET PO SCH ×2 (13:31→19:51)
[2020-08-17] MEDS: diazePAM 2 MG TABLET PO PRN (16:48)
[2020-08-17] MEDS: Budesonide/Formoterol 160/4.5 1 PUFF INH IH SCH (20:14)
[2020-08-18] MEDS: Ipratropium/Albuterol Neb 3 ML IH SCH ×7 (00:02→23:15)
[2020-08-18 03:42] LABS: Basophils % 0.3 %
[2020-08-18 03:44] LABS: Eosinophils # 0.1 K/mcL (0.0-0.6); Eosinophils % 1.5 %; Hematocrit 28.9 % (37.5-50.1); Hemoglobin 8.8 g/dL (12.9-16.9); Immature Granulocytes % 0.6 % (0-4); Immature Platelets 4.3 % (1.1-6.1); Lymphocytes # 0.6 K/mcL (0.6-4.6); Lymphocytes % 17.6 %; Mean Corpuscular HGB Conc 30.4 g/dL (31.6-35.5); Mean Corpuscular Hemoglobin 28.9 pg (28.0-33.3); Mean Corpuscular Volume 94.8 fL (83.0-100.0); Mean Platelet Volume 11.1 fL (9.4-12.4); Monocytes # 0.3 K/mcL (0.0-1.3); Monocytes % 9.8 %; Neutrophils # 2.4 K/mcL (1.6-8.9); Red Blood Count 3.05 M/mcL (4.19-5.50); Red Cell Distribution Width 13.7 % (11.5-14.5); Segmented Neutrophils % 70.2 %; White Blood Count 3.4 K/mcL (4.3-11.1)
[2020-08-18 03:47] LABS: Platelet Count 86 K/mcL (140-400)
[2020-08-18 03:57] LABS: Calcium 8.6 mg/dL (8.6-10.3); Magnesium 1.4 mg/dL (1.6-2.6); Phosphorous 3.8 mg/dL (2.7-4.5); Potassium 4.2 mEq/L (3.5-5.1)
[2020-08-18] MEDS ORDERED: *HR* Metoprolol 5 MG/5 ML VIAL IVP PRN (04:18)
[2020-08-18] MEDS: diazePAM 2 MG TABLET PO PRN ×2 (04:21→17:02)
[2020-08-18] MEDS: levoFLOXacin 750 MG TABLET PO SCH (07:36)
[2020-08-18] MEDS: Apixaban 5 MG TABLET PO SCH ×2 (07:37→20:50)
[2020-08-18] MEDS: Aspirin 81 MG TAB.CHEW PO SCH (07:37)
[2020-08-18] MEDS: predniSONE 10 MG TABLET PO SCH (07:37)
[2020-08-18] MEDS: Furosemide 20 MG/2 ML VIAL IVP SCH ×2 (07:39→20:51)
[2020-08-18] MEDS: Budesonide/Formoterol 160/4.5 1 PUFF INH IH SCH ×2 (07:42→19:36)
[2020-08-18] MEDS: Insulin LISPRO 300 UNITS/3 ML VIAL SUBQ SCH ×4 (07:54→20:51)
[2020-08-18] MEDS ORDERED: Metoprolol XL (24 HR) Succ 50 MG TAB.ER.24H PO SCH (09:00)
[2020-08-18] MEDS ORDERED: Metoprolol XL (24 HR) Succ 25 MG TAB.ER.24H PO SCH (09:00)
[2020-08-18] MEDS: *HR* OxyCODONE/APAP 5/325 TABLET PO PRN ×2 (11:15→23:40)
[2020-08-18] MEDS: Ondansetron ODT 4 MG TAB.RAPDIS SL PRN (14:15)
[2020-08-19] MEDS: diazePAM 2 MG TABLET PO PRN ×3 (02:10→18:21)
[2020-08-19 02:22] LABS: Calcium 9.1 mg/dL (8.6-10.3); Magnesium 1.7 mg/dL (1.6-2.6); Phosphorous 3.3 mg/dL (2.7-4.5); Potassium 4.1 mEq/L (3.5-5.1)
[2020-08-19] MEDS: Ipratropium/Albuterol Neb 3 ML IH SCH ×6 (03:10→23:05)
[2020-08-19] MEDS: *HR* OxyCODONE/APAP 5/325 TABLET PO PRN ×3 (06:24→21:50)
[2020-08-19] MEDS: Aspirin 81 MG TAB.CHEW PO SCH (08:21)
[2020-08-19] MEDS: levoFLOXacin 750 MG TABLET PO SCH (08:21)
[2020-08-19] MEDS: Apixaban 5 MG TABLET PO SCH ×2 (08:22→20:43)
[2020-08-19] MEDS: predniSONE 10 MG TABLET PO SCH (08:22)
[2020-08-19] MEDS: Insulin LISPRO 300 UNITS/3 ML VIAL SUBQ SCH ×4 (08:35→20:32)
[2020-08-19] MEDS: Budesonide/Formoterol 160/4.5 1 PUFF INH IH SCH ×2 (11:11→19:49)
[2020-08-19] MEDS: Furosemide 20 MG/2 ML VIAL IVP SCH ×2 (15:11→20:43)
[2020-08-19] MEDS ORDERED: Perflutren Lipid Microsphere 1.3 ML in 0.9 % Sodium Chloride 8.7 ML IVP PRN (17:13)
[2020-08-20] MEDS: Ipratropium/Albuterol Neb 3 ML IH SCH ×2 (03:43→07:26)
[2020-08-20] MEDS: *HR* OxyCODONE/APAP 5/325 TABLET PO PRN ×3 (04:21→16:37)
[2020-08-20] MEDS: Budesonide/Formoterol 160/4.5 1 PUFF INH IH SCH (07:26)
[2020-08-20] MEDS: Apixaban 5 MG TABLET PO SCH (08:13)
[2020-08-20] MEDS: Aspirin 81 MG TAB.CHEW PO SCH (08:13)
[2020-08-20] MEDS: predniSONE 10 MG TABLET PO SCH (08:13)
[2020-08-20] MEDS: Furosemide 20 MG/2 ML VIAL IVP SCH (08:13)
[2020-08-20] MEDS: Insulin LISPRO 300 UNITS/3 ML VIAL SUBQ SCH ×3 (08:14→16:38)
[2020-08-20] MEDS ORDERED: DilTIAZem CD (24hr) 180 MG CAP.ER.24H PO SCH (09:45)
[2020-08-20] MEDS ORDERED: Ipratropium/Albuterol Neb 3 ML IH PRN (10:25)
[2020-08-20] MEDS: diazePAM 2 MG TABLET PO PRN (10:33)
[2020-08-20 12:34] LABS: Basophils % 0.3 %; Eosinophils # 0.1 K/mcL (0.0-0.6); Eosinophils % 1.9 %; Hematocrit 35.3 % (37.5-50.1); Immature Granulocytes % 0.6 % (0-4); Lymphocytes # 0.4 K/mcL (0.6-4.6); Lymphocytes % 6.8 %; Mean Corpuscular HGB Conc 30.6 g/dL (31.6-35.5); Mean Corpuscular Hemoglobin 28.7 pg (28.0-33.3); Mean Corpuscular Volume 93.9 fL (83.0-100.0); Mean Platelet Volume 10.5 fL (9.4-12.4); Monocytes # 0.3 K/mcL (0.0-1.3); Monocytes % 4.7 %; Neutrophils # 5.3 K/mcL (1.6-8.9); Platelet Count 122 K/mcL (140-400); Red Blood Count 3.76 M/mcL (4.19-5.50); Red Cell Distribution Width 13.7 % (11.5-14.5); Segmented Neutrophils % 85.7 %
[2020-08-20 12:35] LABS: Hemoglobin 10.8 g/dL (12.9-16.9); White Blood Count 6.2 K/mcL (4.3-11.1)
[2020-08-20 12:52] LABS: Calcium 9.4 mg/dL (8.6-10.3); Potassium 4.9 mEq/L (3.5-5.1)
[2020-08-20 16:12] VITALS: BP 115/59
[2020-08-21] MEDS ORDERED: levoFLOXacin 750 MG TABLET PO SCH (09:00)
[2020-08-21] MEDS ORDERED: Furosemide 40 MG TABLET PO SCH (09:00)
== END 2020-08-20 17:30 | DRG 280 ==
LOC: EMEROOARM 04:27 → 2NENU 04:27 → SUATTDRO 15:21 → 2NENU 08-20 01:52
PROVIDERS: ADMIT Internal Medicine; ATTEND Internal Medicine